=== PATIENT | female | born 1985 | race African-American/Black ===

== ENCOUNTER 2020-05-04 21:39 | Emergency (ER) | payer OTHER, SELFPAY ==
[2020-05-04 21:54] VITALS: BP 117/76; PULSE 68; RESP 18; TEMP 37.2; O2SAT 100; BMI 32.4
--- NOTE | 2020-05-04 22:01 | ED.WOUNDLAC ---
HPI - Wound/Laceration General Chief Complaint: Wound/Laceration Stated Complaint: Finger Lac Time Seen by Provider: 05/04/20 21:50 History of Present Illness HPI narrative: patient is a 34-year-old female no significant past medical history presents to the after cutting her left long finger with a scissor curved patient complaining of an area in the dorsum proximal IP joint of the long finger that has a laceration. Patient denies any systemic complaint was completely accidental in nature. She is unsure as to her tetanus status. Related Data Allergies Allergy/AdvReac Type Severity Reaction Status Date / Time naproxen [From NAPROSYN] Allergy Mild STOMACH Verified 05/04/20 21:54 ACHE Review of Systems Review of Systems: Constitutional: No Weight loss, No Fever, No Chills, No Night Sweats, No Fatigue, No Malaise ENT/Mouth: No Hearing loss, No Ear Pain, No Nasal Congestion, No Sinus Pain, No Hoarseness, No sore throat, No Rhinorrhea, No Swallowing Difficulty Eyes: No Eye Pain, No Swelling, No Redness, No Foreign Body, No Discharge, No Vision Changes Cardiovascular: No Chest Pain, No SOB, No Dyspnea on Exertion, No Orthopnea, No Edema, No Palpitations Respiratory: No Cough, No Sputum, No Wheezing, No Smoke Exposure, No Dyspnea Gastrointestinal: No Nausea, No Vomiting, No Diarrhea, No Constipation, No abdominal Pain, No Hematochezia, No Melena Genitourinary: no irregular bleeding, No Dysuria, No Urinary Frequency, No Hematuria, No Urinary Incontinence, No Urgency, No Flank Pain, No Urinary Flow Changes, No Hesitancy Musculoskeletal: No joint pain, No Myalgias, No Joint Swelling Skin: No Skin Lesions, No rash Neuro: No Weakness, No Numbness, No Paresthesias, No Loss of Consciousness, No Dizziness, No Headache Psych: No Anxiety/Panic, No Depression, No SI/HI/AH/VH, No Social Issues, Heme/Lymph: No Bruising, No Bleeding,No Lymphadenopathy Endocrine: No Polyuria, No Polydipsia, No Temperature Intolerance [facility] Past Medical History Attestation statement: The following information was validated with the patient. Social History Social History Advance Directives: No Physical Exam Vital Signs: Vital Signs: Last Vital Signs Temp 99.0 F 05/04/20 21:54 Pulse 68 05/04/20 21:54 Resp 18 05/04/20 21:54 BP 117/76 05/04/20 21:54 Pulse Ox 100 05/04/20 21:54 Body Mass Index 32.4 Appearance: Alert. Oriented X3. No acute distress. Eyes: Pupils equal, round and reactive to light. ENT: Pharynx normal. Neck: Normal inspection. Neck supple. No lymph nodes noted. No crepitus CVS: Normal heart rate and rhythm. Pulses normal. Normal S1 and S2 Respiratory: No respiratory distress. Breath sounds normal. No Wheezing. No rales Abdomen: Soft and nontender. No rigidity. No distention. good BS x4 Skin: positive laceration to the dorsum of left long finger at the proximal IP joint. It is about 2.5 cm in size is in a circular fashion. There is subcutaneous tissue that was exposed. Flexion extension at the proximal IP joint and distal IP joints are completely intact. Sensation intact capillary refill less than 2 seconds. Extremities: No lower extremity edema. Neurovascular intact to all extremities. No Lacerations. No Rash Neuro: Oriented X 3. No motor deficit. No sensory deficit. Moving all extermities. No slurred speech Procedures Laceration Laceration 1: Side (If applicable): left ( Long finger at the proximal IP joint) Size (cm): 2.5 Description: flap Depth: simple, single layer Local Anesthetic: lidocaine 1% Amount of anesthesia used (mL): 5 Pre-repair: wound explored and irrigated extensively Skin layer closed with: nylon Size (cm): 5-0 Number of sutures: 3 Technique: simple, interrupted Discharge Plan Discharge Clinical Impression: Laceration Patient Disposition: Home, Self-Care Instructions: Finger Laceration (ED) Referrals: Conroy,Jess Yuen MD [Emergency Provider] - 2 weeks ( suture removal in 10-14 days in the emergency department or with your primary physician.)
[2020-05-04] MEDS: Lidocaine HCl 1 % MPF 5 ML VIAL SUBCUT (22:06)
== END 2020-05-04 22:54 | disposition home or self-care (01) ==
PROVIDERS: Emergency Provider Emergency Medicine Emergency Medical Services; PCP Internal Medicine
DX: S61.213A Laceration without foreign body of left middle finger without damage to nail, initial encounter (principal); S60.413A Abrasion of left middle finger, initial encounter; M79.645 Pain in left finger(s); W26.8XXA Contact with other sharp object(s), not elsewhere classified, initial encounter; Y93.9 Activity, unspecified; Y92.009 Unspecified place in unspecified non-institutional (private) residence as the place of occurrence of the external cause; Y99.9 Unspecified external cause status; Z23 Encounter for immunization
CPT/HCPCS: 12001; 90471; 90715; 99283; 99284

== ENCOUNTER 2020-08-27 16:57 | Emergency (ER) | payer OTHER, SELFPAY ==
--- NOTE | 2020-08-27 20:01 | PC.NURSE ---
pt not present on first call to triage.
--- NOTE | 2020-08-27 20:17 | PC.NURSE ---
pt not present for 2nd call.
--- NOTE | 2020-08-27 20:28 | PC.NURSE ---
pt not present on 3rd call.
== END 2020-08-27 20:41 | disposition left against medical advice (07) ==
PROVIDERS: Emergency Provider Emergency Medicine; PCP Internal Medicine
DX: R11.10 Vomiting, unspecified (principal)

== ENCOUNTER 2021-07-25 08:47 | Emergency (ER) | payer OTHER, SELFPAY ==
--- NOTE | 2021-07-25 | ECG_ITS ---
Test Reason : chest pain Blood Pressure : / mmHG Vent. Rate : 048 BPM Atrial Rate : 048 BPM P-R Int : 130 ms QRS Dur : 088 ms QT Int : 446 ms P-R-T Axes : 031 037 018 degrees QTc Int : 398 ms Sinus bradycardia Otherwise normal ECG Referred By: Generic ED Physician Electronically Signed By:Asad Dodson
--- NOTE | ~2021-07-25 | XR_ITS ---
EXAMINATION: XR CHEST CLINICAL INFORMATION: Chest pain COMPARISON: None TECHNIQUE: Frontal view of the chest was obtained. FINDINGS: No significant abnormality is noted involving the heart, lungs, mediastinum, bony thorax or soft tissues. XR/XR chest 1V IMPRESSION: Unremarkable chest examination.
[2021-07-25 08:56] VITALS: BP 120/82; PULSE 62; RESP 19; TEMP 36.6; O2SAT 99; BMI 26.9
--- NOTE | 2021-07-25 09:31 | ED.CHESTPAIN ---
HPI - Chest Pain General Chief Complaint: Chest Pain Stated Complaint: low bp chest pain Time Seen by Provider: 07/25/21 09:31 Source: patient Mode of arrival: ambulatory Limitations: no limitations History of Present Illness HPI narrative: 35 y/o female with no medical history presents to the ER with low blood pressure and chest pain for the last 3 days. She reports checking her blood pressure at home and it was low, 90/60's. It was associated with lightheadedness and fatigue. She also reported palpitations and SOB. She reports having central chest pains on/off for the last one year. She saw her PCP recently who told her that her symptoms needed to be constant for 3 months before she could be referred to a green end department supervisor. She presents today because her BP was again low at home. She is not on anti-HTN meds and she checks her BP because she has been feeling tired lately and not well. She has had loose stools and diarrhea for 2 months. No abd pain or vomiting, no fevers, cough, sick contacts. MD complaint: chest pain Onset (ago): year(s) Timing of current episode: episodic Prior episodes: Yes Onset: during rest Pain location: substernal Pain radiation: none Severity: moderate Quality: aching Relieving factors: nothing Exacerbating factors: nothing Associated symptoms: dyspnea and palpitations Risk Factors Coronary artery disease risk factors: none Thoracic aortic dissection risk factors: none Related Data On Oral Contraceptives: No Allergies Allergy/AdvReac Type Severity Reaction Status Date / Time naproxen [From NAPROSYN] Allergy Mild STOMACH Verified 05/04/20 21:54 ACHE Review of Systems Review of Systems: Constitutional: No Fever, No Chills ENT/Mouth: No sore throat, No Rhinorrhea, No Swallowing Difficulty Cardiovascular: + Chest Pain, + SOB, No Orthopnea, No Edema, +Palpitations Respiratory: No Cough, No Sputum, No Wheezing, No dyspnea Gastrointestinal: No Nausea, No Vomiting, + Diarrhea, No abdominal Pain, No Hematochezia, No Melena Musculoskeletal: No joint pain, No Myalgias Skin: No Skin Lesions, No rash Neuro: No Weakness, No Numbness, + Dizziness, No Headache Psych: + Anxiety/Panic, No Depression Heme/Lymph: No Bruising, No Lymphadenopathy Endocrine: No Polyuria, No Polydipsia PMFSH Social History Social History Advance Directives: No Advance Directives Information Provided: No Physical Exam Vital Signs: Vital Signs: Last Vital Signs Temp 97.9 F 07/25/21 11:36 Pulse 47 L 07/25/21 11:36 Resp 12 07/25/21 11:36 BP 111/80 07/25/21 11:36 Pulse Ox 100 07/25/21 11:36 BMI result Body Mass Index 26.9 Appearance: Alert. Oriented X3. No acute distress. Eyes: Pupils equal, round and reactive to light. ENT: Pharynx normal. Neck: Normal inspection. Neck supple. CVS: Normal heart rate and rhythm. Pulses normal. Respiratory: No respiratory distress. Breath sounds normal. Abdomen: Soft and nontender. +BS x4 Skin: Skin warm and dry. Normal skin color. Normal skin turgor. No rashes. Extremities: No lower extremity edema. No calf tenderness or redness. Neuro: Oriented X 3. No motor deficit. No sensory deficit. Course Course Course Narrative: 35 y/p healthy female presents to the ER with on/off chest pains x1 year as well as SOB. She states since Friday she has felt chest pains in the middle of her chest. It comes and goes but has been constant since late last night. On arrival to the ER her VS are normal and her exam is unremarkable. PERC negative. Will check EKG, troponin and basic labs. Will keep on telemetry and monitor. Reevaluation(s) Reevaluation #1: Orthostatic VS are negative. labs are unremarkable. She wrote down all of the blood pressures taken while in the ER - currently 97/67 with MAP 74. She wants to know why my blood pressure is so low. Patient counseled that this is a normal blood pressure and MAP for someone her age. She would like to be referred to a green end department supervisor for further evaluation. At this time patient remains hemodynamically stable with negative cardiac workup. She is stable for discharge home with follow up with her PCP and referral to Cardiology if her PCP feels this is appropriate. MDM - Chest Pain Lab Data Result diagrams: 07/25/21 09:45 07/25/21 09:45 Labs: Lab Results 07/25/21 07/25/21 07/25/21 Range/Units 09:45 09:45 09:45 WBC 4.8 (4.8-10.8) X10*3/uL RBC 4.29 (4.20-5.50) X10*6/uL Hgb 12.7 (12.0-16.0) g/dl Hct 38.2 (37.0-47.0) % MCV 89.0 (80.0-98.0) fL MCH 29.6 (27.0-33.0) pg MCHC 33.2 (31.0-35.0) g/dl RDW 14.7 (11.0-16.0) % Plt Count 156 L (160-400) X10*3/uL MPV 12.2 (9.4-12.3) fL Immature Gran % (Auto) 0.6 H (0.0-0.4) % Neut % (Auto) 66.8 (45-73) % Lymph % (Auto) 22.3 (20-40) % [place] % (Auto) 8.2 (2-11) % Eos % (Auto) 1.5 (0-4) % Baso % (Auto) 0.6 (0-2) % Lymph # (Auto) 1.1 L (1.2-4.9) X10*3/uL [place] # (Auto) 0.4 (0.1-1.2) X10*3/uL Eos # (Auto) 0.1 (0.0-0.4) X10*3/uL Baso # (Auto) 0.0 (0.0-0.2) X10*3/uL Abs Immat Gran (auto) 0.03 (0.00-0.03) X10*3/uL Absolute Neuts (auto) 3.2 (2.0-8.3) x10*3/uL Absolute Nucleated RBC 0.000 (0.0-0.012) X10*3/uL Nucleated RBC % (auto) 0.0 (0.0-0.2) /100WBC Sodium 138 (135-145) mmol/L Potassium 4.0 (3.3-5.1) mmol/L Chloride 107 (96-108) mmol/L Carbon Dioxide 27 (22-29) mmol/L Anion Gap 8 L (12-20) BUN 18 H (9-16) mg/dL Creatinine 0.83 (0.5-1.4) mg/dL Estim Creat Clear Calc 90.6 Estimated GFR > 60 Random Glucose 67 (60-115) mg/dL Calcium 9.3 (8.4-10.2) mg/dL Magnesium 2.0 (1.6-2.6) mg/dL Total Bilirubin 0.7 (0.0-1.0) mg/dL Direct Bilirubin 0.2 (0.0-0.5) mg/dL AST 15 (5-31) U/L ALT 11 (0-31) U/L Alkaline Phosphatase 64 (39-117) U/L Troponin I High Sens < 3.5 (<3.5-17.0) ng/L Total Protein 6.3 L (6.5-8.0) g/dL Albumin 4.1 (3.5-5.0) g/dL TSH 0.95 (0.32-4.0) uIU/mL Urine Color Urine Appearance Urine pH (5.0-8.0) Ur Specific [place] (1.005-1.025) Urine Protein (NEG-TRACE) MG/DL Urine Glucose (UA) (NEG) MG/DL Urine Ketones (NEG) MG/DL Urine Blood (NEG) Urine Nitrite (NEG) Ur Leukocyte Esterase (NEG) Urine Test (NEGATIVE) COVID-19 ([facility]) (Negative) COVID-19 Clin Com 07/25/21 07/25/21 07/25/21 Range/Units 09:45 11:26 11:26 WBC (4.8-10.8) X10*3/uL RBC (4.20-5.50) X10*6/uL Hgb (12.0-16.0) g/dl Hct (37.0-47.0) % MCV (80.0-98.0) fL MCH (27.0-33.0) pg MCHC (31.0-35.0) g/dl RDW (11.0-16.0) % Plt Count (160-400) X10*3/uL MPV (9.4-12.3) fL Immature Gran % (Auto) (0.0-0.4) % Neut % (Auto) (45-73) % Lymph % (Auto) (20-40) % [place] % (Auto) (2-11) % Eos % (Auto) (0-4) % Baso % (Auto) (0-2) % Lymph # (Auto) (1.2-4.9) X10*3/uL [place] # (Auto) (0.1-1.2) X10*3/uL Eos # (Auto) (0.0-0.4) X10*3/uL Baso # (Auto) (0.0-0.2) X10*3/uL Abs Immat Gran (auto) (0.00-0.03) X10*3/uL Absolute Neuts (auto) (2.0-8.3) x10*3/uL Absolute Nucleated RBC (0.0-0.012) X10*3/uL Nucleated RBC % (auto) (0.0-0.2) /100WBC Sodium (135-145) mmol/L Potassium (3.3-5.1) mmol/L Chloride (96-108) mmol/L Carbon Dioxide (22-29) mmol/L Anion Gap (12-20) BUN (9-16) mg/dL Creatinine (0.5-1.4) mg/dL Estim Creat Clear Calc Estimated GFR Random Glucose (60-115) mg/dL Calcium (8.4-10.2) mg/dL Magnesium (1.6-2.6) mg/dL Total Bilirubin (0.0-1.0) mg/dL Direct Bilirubin (0.0-0.5) mg/dL AST (5-31) U/L ALT (0-31) U/L Alkaline Phosphatase (39-117) U/L Troponin I High Sens (<3.5-17.0) ng/L Total Protein (6.5-8.0) g/dL Albumin (3.5-5.0) g/dL TSH (0.32-4.0) uIU/mL Urine Color YELLOW Urine Appearance CLEAR Urine pH 6.0 (5.0-8.0) Ur Specific [place] 1.020 (1.005-1.025) Urine Protein NEG (NEG-TRACE) MG/DL Urine Glucose (UA) NEG (NEG) MG/DL Urine Ketones NEG (NEG) MG/DL Urine Blood NEG (NEG) Urine Nitrite NEG (NEG) Ur Leukocyte Esterase NEG (NEG) Urine Test NEGATIVE (NEGATIVE) COVID-19 ([facility]) Negative (Negative) COVID-19 Clin Com See Note Discharge Plan Discharge Clinical Impression: Atypical chest pain Patient Disposition: Home, Self-Care Instructions: Noncardiac Chest Pain (ED) Additional Instructions: Your lab workup and EKG were normal. Your blood pressure remained stable in the ER. Blood pressure in the 90's is normal for someone your age. Recommend following up with your doctor. If you develop new or worsening symptoms call 911 or come back to the ER for further evaluation. Referrals: Nadege Pollard MD [Primary Care Provider] - 2 days (chest pain x1 year) Asad Dodson MD [Physician] - 1 week (chest pain, hypotension ) Interventions: ED Discharge Assessment Last Done: 07/25/21 12:41 Discharge Date/Time: 07/25/21 12:41
[2021-07-25] MEDS: 0.9 % Sodium Chloride 1,000 ML 999 ML IVCONT (09:46)
[2021-07-25 09:52] LABS: MANUAL DIFF FLAG NO
[2021-07-25 09:56] LABS: Basophils Percent Auto 0.6 % (0-2); Eosinophils Absolute Auto 0.1 X10*3/uL (0.0-0.4); Eosinophils Percent Auto 1.5 % (0-4); Hematocrit 38.2 % (37.0-47.0); Hemoglobin 12.7 g/dl (12.0-16.0); Imm Gran Abs Auto 0.03 X10*3/uL (0.00-0.03); Imm Gran Pct Auto 0.6 % (0.0-0.4); Lymphocytes Absolute Auto 1.1 X10*3/uL (1.2-4.9); Lymphocytes Percent Auto 22.3 % (20-40); Mean Corpuscular HGB Conc 33.2 g/dl (31.0-35.0); Mean Corpuscular Hemoglobin 29.6 pg (27.0-33.0); Mean Platelet Volume 12.2 fL (9.4-12.3); Monocytes Absolute Auto 0.4 X10*3/uL (0.1-1.2); Monocytes Percent Auto 8.2 % (2-11); Neutrophils Absolute Auto 3.2 x10*3/uL (2.0-8.3); Neutrophils Percent Auto 66.8 % (45-73); Platelet Count 156 X10*3/uL (160-400); Red Blood Count 4.29 X10*6/uL (4.20-5.50); Red Cell Distribution Width 14.7 % (11.0-16.0); White Blood Count 4.8 X10*3/uL (4.8-10.8)
[2021-07-25 10:12] LABS: COVID-19 Test Negative (Negative)
[2021-07-25 10:19] LABS: Alanine Aminotransferase 11 U/L (0-31); Albumin Level 4.1 g/dL (3.5-5.0); Alkaline Phosphatase 64 U/L (39-117); Anion Gap 8 (12-20); Aspartate Amino Transferase 15 U/L (5-31); Bilirubin Direct 0.2 mg/dL (0.0-0.5); Bilirubin Total 0.7 mg/dL (0.0-1.0); Blood Urea Nitrogen 18 mg/dL (9-16); Calcium 9.3 mg/dL (8.4-10.2); Carbon Dioxide 27 mmol/L (22-29); Chloride 107 mmol/L (96-108); Creatinine Clr Calc Pharmacy 90.6; Estimated Glomerular Filt Rate > 60; Glucose Random 67 mg/dL (60-115); Sodium 138 mmol/L (135-145); Total Protein 6.3 g/dL (6.5-8.0)
[2021-07-25 10:21] LABS: Troponin-I High Sensitivity < 3.5 ng/L (<3.5-17.0)
[2021-07-25 10:30] VITALS: BP 100/59; PULSE 50; RESP 20; TEMP 36.7; O2SAT 100
[2021-07-25 10:32] VITALS: BP 112/64; BP 96/66; PULSE 55; PULSE 66
[2021-07-25 10:36] LABS: TSH reflex Free T4 0.95 uIU/mL (0.32-4.0)
[2021-07-25 11:36] VITALS: BP 111/80; PULSE 47; RESP 12; TEMP 36.6; O2SAT 100
[2021-07-25 11:43] LABS: Appearance Urine CLEAR; Color Urine YELLOW; Glucose Urine UA NEG (NEG); Leukocyte Esterase Urine NEG (NEG); Nitrite Urine NEG (NEG); Urine Blood NEG (NEG); Urine Ketones NEG (NEG); Urine Protein NEG (NEG-TRACE)
[2021-07-25 11:44] LABS: UPreg QC Valid YES; Urine Pregnancy NEGATIVE (NEGATIVE)
[2021-07-25 16:42] LABS: Amphetamine Screen Urine Not Detected (Not Detect); Barbiturates, Urine Not Detected (Not Detect); Benzodiazepines Screen Urine Not Detected (Not Detect); Cannabinoid Screen Urine Not Detected (Not Detect); Cocaine Screen Urine Not Detected (Not Detect); Fentanyl, urine Not Detected (Not Detect); Opiate Screen Urine Not Detected (Not Detect); Phencyclidine Screen Urine Not Detected (Not Detect)
== END 2021-07-25 12:41 | disposition home or self-care (01) ==
PROVIDERS: Physician Assistant; Emergency Provider Emergency Medicine; PCP Internal Medicine
DX: R07.89 Other chest pain (principal); R06.02 Shortness of breath; Z20.822 Contact with and (suspected) exposure to COVID-19
CPT/HCPCS: 71045; 80048; 80076; 80307; 81003; 81025; 83735; 84443; 84484; 85025; 87635; 93005; 96360; 99284

== ENCOUNTER 2021-11-21 09:25 | Emergency (ER) | payer OTHER, SELFPAY ==
--- NOTE | ~2021-11-21 | CT_ITS ---
EXAMINATION: CT ABDOMEN AND PELVIS WITHOUT CONTRAST CLINICAL INFORMATION: Flank pain. UTI. COMPARISON: None TECHNIQUE: Multidetector volumetric imaging was performed from the superior aspect of the liver through the pubic symphysis. Sagittal and coronal reformatted images were obtained on the technologist's workstation. This CT examination was performed using dose optimization techniques as appropriate, variously including the following: *Automated exposure control *Adjustment of mA and/or kV according to patient size (this includes techniques or standardized protocols for targeted exams where dose is matched to indication/reason for exam; i.e. extremities or head) *Use of iterative reconstruction technique DLP: 710 mGy-cm FINDINGS: Visualized lung bases are well aerated. The liver demonstrates normal size, contour and attenuation. The gallbladder is normal in appearance. The pancreas, spleen and adrenal glands are unremarkable. Symmetrically sized kidneys. No renal calculi or hydronephrosis of either kidney. Normal caliber loops of small and large bowel. Normal appendix. Normal caliber abdominal aorta. No gross retroperitoneal lymphadenopathy. The bladder is decompressed and therefore not accurately evaluated, however, no gross bladder abnormality is identified. Unremarkable CT appearance of an anteverted uterus. Suspected nabothian cysts of the cervix. Suspected 3.5 cm right adnexal cyst. Trace amount of free pelvic fluid is nonspecific but likely physiologic in a female of this age. No inguinal lymphadenopathy. No acute osseous abnormality. CT/CT abdomen pelvis wo IV con IMPRESSION: No CT evidence for acute abnormality within the abdomen or pelvis. Specifically no renal calculi or hydronephrosis of either kidney. Fleischner guidelines were followed.
[2021-11-21 09:28] VITALS: BP 130/80; PULSE 60; RESP 18; TEMP 36.6; O2SAT 99; BMI 29.7
[2021-11-21 10:22] VITALS: BP 106/58; PULSE 51; RESP 16; TEMP 36.9; O2SAT 100
--- NOTE | 2021-11-21 10:43 | ED.ABDPAIN ---
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 Patient also having chills, nausea/vomiting. No diarrhea, constipation or vaginal discharge. Related Data Previous Rx's Medication Instructions Recorded cefuroxime axetil 250 mg tablet 250 mg PO BID #14 tabs 11/21/21 phenazopyridine 200 mg tablet 200 mg PO TID PRN pain 6 doses #14 11/21/21 (Pyridium) tabs Allergies Allergy/AdvReac Type Severity Reaction Status Date / Time naproxen [From NAPROSYN] Allergy Mild STOMACH Verified 05/04/20 21:54 ACHE Review of Systems Review of Systems Yes all other systems are reviewed and are negative Constitutional: Reports no additional constitutional complaints, Denies body ache(s), Reports chills, Denies fever(s), Denies headache(s) and Denies weakness Eyes: Reports no additional eye complaints and Denies change in vision Reports system reviewed and no additional complaints, except as documented, Denies dizziness, Denies headache(s), Denies nasal congestion, Denies nasal discharge and Denies neck pain Cardiovascular: Reports no additional cardiovascular complaints, Denies chest pain, Denies leg edema and Denies dyspnea Respiratory: Reports no additional respiratory complaints, Denies cough and Denies dyspnea Gastrointestinal: Reports no additional gastrointestinal complaints, Reports abdominal pain, Denies diarrhea, Reports nausea and Reports vomiting Genitourinary: Reports no additional female genitourinary complaints, Denies urinary incontinence and Denies vaginal discharge Comments: Dysuria and frequency Musculoskeletal: Reports no additional musculoskeletal complaints, Reports back pain, Denies arthralgias, Denies joint swelling, Denies neck pain, Denies numbness and Denies tingling Skin/Breast: Reports system reviewed and no additional complaints, except as docu and Denies rash Reports system reviewed and no additional complaints, except as documented, Denies dizziness, Denies headache(s), Denies numbness, Denies tingling and Denies weakness [facility] Past Medical History Attestation statement: The following information was validated with the patient. Source: old records reviewed and nursing notes reviewed Social History Social History Advance Directives: No Advance Directives Information Provided: No Patient : Yes Physical Exam ED Vital Signs: Vital Signs - 24 hr 11/21/21 09:28 11/21/21 10:22 11/21/21 12:27 Temperature 97.8 F 98.5 F Pulse Rate 60 51 52 Respiratory Rate 18 16 14 Blood Pressure 130/80 106/58 L 101/62 Pulse Oximetry 99 100 100 Oxygen Delivery Method Room Air Nasal Cannula Room Air Room Air BMI result Body Mass Index 29.7 Const General: cooperative, healthy appearing, comfortable and no acute distress Orientation/consciousness: patient oriented x3 Limitations: no limitations HENMT Head: Yes normal to inspection Ears: hearing grossly normal bilaterally General nose exam: Normal external nose present Face and sinus: Yes normal facial exam Mouth: Normal oral and palatal mucosa present Teeth and gingiva: dentition normal Throat: Yes posterior oropharynx normal, Yes tonsils normal and Yes uvula midline Eyes General: appearance normal, both eyes and all related structures Pupils: Equal, round and reactive pupils present Neck Neck: Yes normal visual inspection, Yes full ROM and Yes no lymphadenopathy Chest Chest palpation & inspection: normal inspection of the chest Resp Effort & Inspection: normal respiratory effort Auscultation: clear to auscultation bilaterally Cardio Rate: regular rate Rhythm: regular rhythm Peripheral pulses: Peripheral pulses 2+ throughout GI Inspection: Yes normal to inspection Palpation (GI): Soft to palpation and Tenderness to palpation present (GI) (Lower abdominal tenderness [id number]) General: Yes CVA tenderness (Right-sided) Back/Spine/Pelvis Back: CVA tenderness (Right-sided) Skin General skin exam: no rashes or lesions noted Neuro General: patient oriented x3 and moves all extremities Cranial nerves: Yes Equal, round and reactive pupils present Extrem General: Yes normal to inspection, Yes no pedal edema and Yes no calf tenderness Course Course Course Narrative: 36-year-old female here with reports of 4 days of right flank pain which radiates the right lower abdomen with nausea, chills, urinary frequency and dysuria. Will need labs, UA, urine , CT Reevaluation(s) Reevaluation #1: UA shows 3+ blood, +nitrites and leuks. At this time infection suspected. Antibiotics ordered. Time: 11:00 Reevaluation #2: CT shows no acute finding. Labs are unremarkable. Patient received a dose of antibiotics for her UTI. She is tolerating fluids. Will discharge her home with oral antibiotics and Pyridium as needed. Reviewed worrisome signs and symptoms of when to return to the emergency department. Comfortable discharge home. Time: 14:30 MDM - Abdominal Pain MDM Narrative Medical decision making narrative: Pyelonephritis, renal colic, UTI, appendicitis Medical Records Attestation: I reviewed the patient's medical records. Lab Data Attestation: I reviewed the patient's lab results. Result diagrams: 11/21/21 10:57 11/21/21 10:57 Labs: Lab Results 11/21/21 11/21/21 11/21/21 Range/Units 10:57 10:57 10:57 WBC 6.8 (4.8-10.8) X10*3/uL RBC 4.38 (4.20-5.50) X10*6/uL Hgb 12.9 (12.0-16.0) g/dl Hct 39.4 (37.0-47.0) % MCV 90.0 (80.0-98.0) fL MCH 29.5 (27.0-33.0) pg MCHC 32.7 (31.0-35.0) g/dl RDW 14.4 (11.0-16.0) % Plt Count 218 D (160-400) X10*3/uL MPV 10.7 (9.4-12.3) fL Immature Gran % (Auto) 0.7 H (0.0-0.4) % Neut % (Auto) 74.6 H (45-73) % Lymph % (Auto) 16.4 L (20-40) % [place] % (Auto) 6.5 (2-11) % Eos % (Auto) 1.5 (0-4) % Baso % (Auto) 0.3 (0-2) % Lymph # (Auto) 1.1 L (1.2-4.9) X10*3/uL [place] # (Auto) 0.4 (0.1-1.2) X10*3/uL Eos # (Auto) 0.1 (0.0-0.4) X10*3/uL Baso # (Auto) 0.0 (0.0-0.2) X10*3/uL Abs Immat Gran (auto) 0.05 H (0.00-0.03) X10*3/uL Absolute Neuts (auto) 5.1 (2.0-8.3) x10*3/uL Absolute Nucleated RBC 0.000 (0.0-0.012) X10*3/uL Nucleated RBC % (auto) 0.0 (0.0-0.2) /100WBC Sodium 138 (135-145) mmol/L Potassium 4.5 (3.3-5.1) mmol/L Chloride 107 (96-108) mmol/L Carbon Dioxide 26 (22-29) mmol/L Anion Gap 10 L (12-20) BUN 20 H (9-16) mg/dL Creatinine 0.74 (0.5-1.4) mg/dL Estim Creat Clear Calc 105.5 Estimated GFR > 60 Random Glucose 89 (60-115) mg/dL Lactic Acid 0.3 L (0.5-2.0) mmol/L Calcium 8.9 (8.4-10.2) mg/dL Total Bilirubin 0.4 (0.0-1.0) mg/dL Direct Bilirubin 0.2 (0.0-0.5) mg/dL AST 14 (5-31) U/L ALT 11 (0-31) U/L Alkaline Phosphatase 68 (39-117) U/L Total Protein 6.7 (6.5-8.0) g/dL Albumin 4.2 (3.5-5.0) g/dL Urine Color Urine Appearance Urine pH (5.0-8.0) Ur Specific [place] (1.005-1.025) Urine Protein (NEG-TRACE) MG/DL Urine Glucose (UA) (NEG) MG/DL Urine Ketones (NEG) MG/DL Urine Blood (NEG) Urine Nitrite (NEG) Ur Leukocyte Esterase (NEG) Urine RBC (0) /HPF Urine WBC (0-4) /HPF Ur Squamous Epith Cells /LPF Urine Bacteria /LPF Urine Test (NEGATIVE) 11/21/21 11/21/21 Range/Units 10:57 10:57 WBC (4.8-10.8) X10*3/uL RBC (4.20-5.50) X10*6/uL Hgb (12.0-16.0) g/dl Hct (37.0-47.0) % MCV (80.0-98.0) fL MCH (27.0-33.0) pg MCHC (31.0-35.0) g/dl RDW (11.0-16.0) % Plt Count (160-400) X10*3/uL MPV (9.4-12.3) fL Immature Gran % (Auto) (0.0-0.4) % Neut % (Auto) (45-73) % Lymph % (Auto) (20-40) % [place] % (Auto) (2-11) % Eos % (Auto) (0-4) % Baso % (Auto) (0-2) % Lymph # (Auto) (1.2-4.9) X10*3/uL [place] # (Auto) (0.1-1.2) X10*3/uL Eos # (Auto) (0.0-0.4) X10*3/uL Baso # (Auto) (0.0-0.2) X10*3/uL Abs Immat Gran (auto) (0.00-0.03) X10*3/uL Absolute Neuts (auto) (2.0-8.3) x10*3/uL Absolute Nucleated RBC (0.0-0.012) X10*3/uL Nucleated RBC % (auto) (0.0-0.2) /100WBC Sodium (135-145) mmol/L Potassium (3.3-5.1) mmol/L Chloride (96-108) mmol/L Carbon Dioxide (22-29) mmol/L Anion Gap (12-20) BUN (9-16) mg/dL Creatinine (0.5-1.4) mg/dL Estim Creat Clear Calc Estimated GFR Random Glucose (60-115) mg/dL Lactic Acid (0.5-2.0) mmol/L Calcium (8.4-10.2) mg/dL Total Bilirubin (0.0-1.0) mg/dL Direct Bilirubin (0.0-0.5) mg/dL AST (5-31) U/L ALT (0-31) U/L Alkaline Phosphatase (39-117) U/L Total Protein (6.5-8.0) g/dL Albumin (3.5-5.0) g/dL Urine Color YELLOW Urine Appearance CLEAR Urine pH 5.5 (5.0-8.0) Ur Specific [place] 1.025 (1.005-1.025) Urine Protein NEG (NEG-TRACE) MG/DL Urine Glucose (UA) NEG (NEG) MG/DL Urine Ketones NEG (NEG) MG/DL Urine Blood 3+ H (NEG) Urine Nitrite POS H (NEG) Ur Leukocyte Esterase TRACE H (NEG) Urine RBC 5-9 H (0) /HPF Urine WBC 15-29 H (0-4) /HPF Ur Squamous Epith Cells 1+ /LPF Urine Bacteria 2+ /LPF Urine Test NEGATIVE (NEGATIVE) Discharge Plan Discharge Clinical Impression: UTI (urinary tract infection) Patient Disposition: Home, Self-Care Instructions: Urinary Tract Infection in Women (ED) Additional Instructions: Increase fluids, rest Motrin or Tylenol for pain as needed if able Follow-up with primary care doctor in 7 days for any persistent symptoms Return to the emergency department for intractable vomiting, worsening pain, high fever which is not respond to Motrin or Tylenol Prescriptions: New phenazopyridine [Pyridium] 200 mg tablet 200 mg PO TID PRN (Reason: pain) Qty: 14 0RF cefuroxime axetil 250 mg tablet 250 mg PO BID Qty: 14 0RF Referrals: Nadege Pollard MD [Primary Care Provider] - 1 week (If no improvement) Interventions: ED Discharge Assessment Last Done: 11/21/21 14:37 Discharge Date/Time: 11/21/21 14:37 Print Language: [place]
[2021-11-21] MEDS: Ketorolac Tromethamine 30 MG/ML VIAL IVPUSH (10:56)
[2021-11-21] MEDS: 0.9 % Sodium Chloride 1,000 ML 999 ML IV (10:56)
[2021-11-21 11:04] LABS: MANUAL DIFF FLAG NO
[2021-11-21 11:06] LABS: Basophils Percent Auto 0.3 % (0-2); Eosinophils Absolute Auto 0.1 X10*3/uL (0.0-0.4); Eosinophils Percent Auto 1.5 % (0-4); Hematocrit 39.4 % (37.0-47.0); Hemoglobin 12.9 g/dl (12.0-16.0); Imm Gran Abs Auto 0.05 X10*3/uL (0.00-0.03); Imm Gran Pct Auto 0.7 % (0.0-0.4); Lymphocytes Absolute Auto 1.1 X10*3/uL (1.2-4.9); Lymphocytes Percent Auto 16.4 % (20-40); Mean Corpuscular HGB Conc 32.7 g/dl (31.0-35.0); Mean Corpuscular Hemoglobin 29.5 pg (27.0-33.0); Mean Platelet Volume 10.7 fL (9.4-12.3); Monocytes Absolute Auto 0.4 X10*3/uL (0.1-1.2); Monocytes Percent Auto 6.5 % (2-11); Neutrophils Absolute Auto 5.1 x10*3/uL (2.0-8.3); Neutrophils Percent Auto 74.6 % (45-73); Platelet Count 218 X10*3/uL (160-400); Red Blood Count 4.38 X10*6/uL (4.20-5.50); Red Cell Distribution Width 14.4 % (11.0-16.0); White Blood Count 6.8 X10*3/uL (4.8-10.8)
[2021-11-21 11:07] LABS: Appearance Urine CLEAR; Color Urine YELLOW; Glucose Urine UA NEG (NEG); Leukocyte Esterase Urine TRACE (NEG); Nitrite Urine POS (NEG); PH 5.5 (5.0-8.0); Specific Gravity - Urine 1.025 (1.005-1.025); UACC Culture Trigger YES; Urine Blood 3+ (NEG); Urine Ketones NEG (NEG); Urine Protein NEG (NEG-TRACE)
[2021-11-21 11:10] LABS: UPreg QC Valid YES; Urine Pregnancy NEGATIVE (NEGATIVE)
[2021-11-21 11:15] LABS: Lactic Acid 0.3 mmol/L (0.5-2.0)
[2021-11-21 11:19] LABS: Alanine Aminotransferase 11 U/L (0-31); Albumin Level 4.2 g/dL (3.5-5.0); Alkaline Phosphatase 68 U/L (39-117); Anion Gap 10 (12-20); Aspartate Amino Transferase 14 U/L (5-31); Bilirubin Direct 0.2 mg/dL (0.0-0.5); Bilirubin Total 0.4 mg/dL (0.0-1.0); Blood Urea Nitrogen 20 mg/dL (9-16); Calcium 8.9 mg/dL (8.4-10.2); Carbon Dioxide 26 mmol/L (22-29); Chloride 107 mmol/L (96-108); Creatinine Clr Calc Pharmacy 105.5; Estimated Glomerular Filt Rate > 60; Glucose Random 89 mg/dL (60-115); Potassium 4.5 mmol/L (3.3-5.1); Sodium 138 mmol/L (135-145); Total Protein 6.7 g/dL (6.5-8.0)
[2021-11-21] MEDS: cefTRIAXone sodium 1 GM in 0.9 % Sodium Chloride 50 ML IV (11:32)
[2021-11-21 11:35] LABS: Bacteria Urine 2+ /LPF; Squamous Epithelial Cell Urine 1+ /LPF
[2021-11-21 12:27] VITALS: BP 101/62; PULSE 52; RESP 14; O2SAT 100
== END 2021-11-21 14:37 | disposition home or self-care (01) ==
PROVIDERS: Nurse Practitioner Family; Emergency Provider Emergency Medicine; PCP Internal Medicine
DX: N39.0 Urinary tract infection, site not specified (principal); B96.1 Klebsiella pneumoniae [K. pneumoniae] as the cause of diseases classified elsewhere; R10.30 Lower abdominal pain, unspecified
CPT/HCPCS: 36415; 74176; 80048; 80076; 81001; 81025; 83605; 85025; 87040; 87086; 87088; 87186; 96361; 96374; 96375; 99284; 99285; J0696; J1885

== ENCOUNTER 2022-05-17 23:53 | Emergency (ER) | payer OTHER, MEDICAID, SELFPAY ==
--- NOTE | ~2022-05-17 | XR_ITS ---
EXAMINATION: XR CHEST CLINICAL INFORMATION: Chest pain, rule out pneumonia COMPARISON: 07/25/2021 TECHNIQUE: 2 views of the chest were obtained. FINDINGS: Lung volumes are symmetric. No focal consolidation is seen. No evidence of pneumothorax, pleural effusion, or pulmonary edema. The cardiomediastinal contour is unremarkable. No acute osseous findings are seen. XR/XR chest 2V IMPRESSION: No acute cardiopulmonary findings.
[2022-05-18 00:10] VITALS: BP 118/71; BP 133/70; PULSE 80; RESP 21; TEMP 36.6; O2SAT 100; BMI 34.5
--- NOTE | 2022-05-18 00:36 | ED.CHESTPAIN ---
HPI - Chest Pain General Chief Complaint: Chest Pain Stated Complaint: CHEST SINCE 1600 Time Seen by Provider: 05/18/22 00:04 Source: patient Mode of arrival: EMS Limitations: language barrier (Patient's 1st language is Slovak, she does understand Khmer, die try out worker was used) History of Present Illness HPI narrative: 36-year-old female who presents emergency department for evaluation chest pain. Patient states that she worked all day and was feeling fine. When she got home from work at around 16:00 hours she developed chest pain. The pain came on at rest. She points to her sternum and right chest when asked to localize the pain. She states the pain is an intermittent pressure-like pain which is intermittent and is 8/10 at its worst. She states that she also has numbness and tingling in both of her arms and legs that is intermittent as well. She did not take any medications for the pain at home. She states that over the last 2 days she has had a headache and a cough mainly at night. She also states she has had palpitations at night and she has had tingling this in her arms and legs at night as well. She denied fever, chills, rhinorrhea, sore throat, shortness of breath, nausea or vomiting. She does feel dizzy. She denied diaphoresis, frequency, urgency, dysuria, dark black stools or bloody stools. She has not noted any swelling in her lower extremities and she is not been any recent trips. She denies taking control pills. MD complaint: chest pain Onset (ago): hour(s) (Onset at 16:00 hours, intermittent time 6 hours) Timing of current episode: episodic Onset: during rest Pain location: substernal and right chest Pain radiation: none Severity: severe Pain scale (0-10): 8 Quality: other (Pressure) Relieving factors: nothing Exacerbating factors: nothing Associated symptoms: palpitations and cough Treatment prior to arrival: none Risk Factors Coronary artery disease risk factors: none Thoracic aortic dissection risk factors: none Related Data On Oral Contraceptives: No Previous Rx's Medication Instructions Recorded cefuroxime axetil 250 mg tablet 250 mg PO BID #14 tabs 11/21/21 phenazopyridine 200 mg tablet 200 mg PO TID PRN pain 6 doses #14 11/21/21 (Pyridium) tabs Allergies Allergy/AdvReac Type Severity Reaction Status Date / Time No Known Allergies Allergy Verified 05/18/22 00:10 Review of Systems Review of Systems: Yes all other systems are reviewed and are negative [facility] Past Medical History [facility] Narrative: Past medical history: None. Past surgical history: , right fibroma, bilateral tubal ligation. Social history: She denies tobacco, alcohol and drug use. Social History Social History Advance Directives: No Advance Directives Information Provided: Yes Physical Exam Vital Signs: Vital Signs: Last Vital Signs Temp 97.9 F 05/18/22 00:10 Pulse 80 05/18/22 00:10 Resp 21 H 05/18/22 00:10 BP 118/71 05/18/22 00:10 O2 Del Method 05/18/22 00:10 BMI result Body Mass Index 34.5 Const: General: cooperative and no acute distress Orientation/consciousness: oriented to person and oriented to place Limitations: no limitations HEENT: Head: Yes normal to inspection, Yes normocephalic and Yes atraumatic Ears: external ears normal General nose exam: Normal external nose present Face and sinus: Yes normal facial exam Mouth: Normal oral and palatal mucosa present Throat: Yes posterior oropharynx normal Eyes: General: appearance normal, both eyes and all related structures Pupils: Equal, round and reactive pupils present Neck: Neck: Yes normal visual inspection, Yes no lymphadenopathy, Yes trachea midline and Yes supple Chest: Chest palpation & inspection: normal inspection of the chest and normal palpation of entire chest wall Resp: Effort & Inspection: normal respiratory effort and able to speak in complete sentences Auscultation: clear to auscultation bilaterally Cardio: Rate: regular rate Rhythm: regular rhythm Heart sounds: S1 normal heart sound present, S2 normal heart sound present and no murmurs GI: Inspection: Yes normal to inspection Palpation (GI): Soft to palpation, nontender and no guarding Auscultation: normal bowel sounds : General: Yes no CVA tenderness Back/Spine/Pelvis: Back: no CVA tenderness Skin: General skin exam: no rashes or lesions noted Neuro: General: oriented to person and oriented to place Cranial nerves: Yes CN's II-XII intact bilaterally and Yes Equal, round and reactive pupils present Cognition (Neuro): normal cognition Motor exam (neuro): 5/5 motor strength present throughout Extrem: General: Yes normal to inspection Psych: Appearance: grossly normal Speech and movement: Normal speech and movement present Affect: normal affect Attitude: cooperative Thought process: Normal thought process present Thought content: Normal thought content present Course Course Course Narrative: 36-year-old female who presents emergency department for evaluation of chest pain since 16:00 hours, the pain came on suddenly at rest, pain is located in her sternum and right chest area, she has had associated numbness and tingling of both arms and legs, pain was 8/10 at its worst. For the past 2 nights she has had palpitations at night with tingling this and her arms and legs and a nonproductive cough. This is the 1st episode of this type of chest pain. Vital signs revealed an elevated respiratory of 21 otherwise unremarkable. Patient's physical examination was unremarkable. Did order laboratory evaluation to include a D-dimer, chest x-ray, EKG. Patient was treated with Toradol 15 mg IV and Zofran 4 mg IV. I also ordered normal saline x1 L. 0244: Laboratory evaluation: Low H&H 11.2 and 33.2 with a normal MCV. High sensitive troponin I below detectable limits. D-dimer normal. Radiology evaluation: Chest x-ray: no acute disease Patient is feeling better after the above treatment. Evaluation was unremarkable. At this time I believe that the patient's pain is most likely caused by inflammation of her muscles and joints of your chest (costochondritis). Patient was discharged home and advised to take Tylenol ibuprofen for pain. She was given printed and verbal instructions. Medications Administered Discontinued Medications Generic Name Dose Route Start Last Admin Trade Name Mora PRN Reason Stop Dose Admin Sodium Chloride 1,000 mls @ 999 mls/hr 05/18/22 00:36 05/18/22 02:26 Ns IV 05/18/22 01:36 Infused .Q1H1M STA Infusion Ketorolac Tromethamine 15 mg 05/18/22 00:36 05/18/22 00:56 Ketorolac Tromethamine 15 Mg/Ml Vial IVPUSH 05/18/22 00:37 15 mg ONCE STA Administration Ondansetron HCl 4 mg 05/18/22 00:36 05/18/22 00:56 Ondansetron Hcl 4 Mg/2 Ml Vial IVPUSH 05/18/22 00:37 4 mg ONCE ONE Administration MDM - Chest Pain Medical Records Data Attestation: I reviewed the patient's medical records. Lab Data Attestation: I reviewed the patient's lab results. Result diagrams: 05/18/22 01:30 05/18/22 01:30 Labs: Lab Results 05/18/22 05/18/22 05/18/22 Range/Units 01:30 01:30 01:30 WBC 6.9 (4.8-10.8) X10*3/uL RBC 3.78 L (4.20-5.50) X10*6/uL Hgb 11.2 L (12.0-16.0) g/dl Hct 33.2 L (37.0-47.0) % MCV 87.8 (80.0-98.0) fL MCH 29.6 (27.0-33.0) pg MCHC 33.7 (31.0-35.0) g/dl RDW 14.5 (11.0-16.0) % Plt Count 180 (160-400) X10*3/uL MPV 10.6 (9.4-12.3) fL Immature Gran % (Auto) 0.4 (0.0-0.4) % Neut % (Auto) 67.6 (45-73) % Lymph % (Auto) 21.6 (20-40) % [place] % (Auto) 7.0 (2-11) % Eos % (Auto) 2.8 (0-4) % Baso % (Auto) 0.6 (0-2) % Lymph # (Auto) 1.5 (1.2-4.9) X10*3/uL [place] # (Auto) 0.5 (0.1-1.2) X10*3/uL Eos # (Auto) 0.2 (0.0-0.4) X10*3/uL Baso # (Auto) 0.0 (0.0-0.2) X10*3/uL Abs Immat Gran (auto) 0.03 (0.00-0.03) X10*3/uL Absolute Neuts (auto) 4.6 (2.0-8.3) x10*3/uL Absolute Nucleated RBC 0.000 (0.0-0.012) X10*3/uL Nucleated RBC % (auto) 0.0 (0.0-0.2) /100WBC PT 11.8 (10.0-13.1) SEC INR 1.0 (0.9-1.1) APTT 29.9 (26.0-36.4) SEC D-Dimer High Sensitivty < 150 NG/ML Sodium 135 (135-145) mmol/L Potassium 3.5 D (3.3-5.1) mmol/L Chloride 106 (96-108) mmol/L Carbon Dioxide 24 (22-29) mmol/L Anion Gap 9 L (12-20) BUN 17 H (9-16) mg/dL Creatinine 0.75 (0.5-1.4) mg/dL Estim Creat Clear Calc 108.3 Estimated GFR > 60 Random Glucose 108 (60-115) mg/dL Calcium 8.3 L D (8.4-10.2) mg/dL Total Bilirubin 0.2 (0.0-1.0) mg/dL AST 13 (5-31) U/L ALT 10 (0-31) U/L Alkaline Phosphatase 72 (39-117) U/L Troponin I High Sens (<3.5-17.0) ng/L Total Protein 5.3 L (6.5-8.0) g/dL Albumin 3.5 (3.5-5.0) g/dL Lipase 28 (8-78) U/L Beta HCG, Quant < 2 mIU/mL 05/18/22 Range/Units 01:30 WBC (4.8-10.8) X10*3/uL RBC (4.20-5.50) X10*6/uL Hgb (12.0-16.0) g/dl Hct (37.0-47.0) % MCV (80.0-98.0) fL MCH (27.0-33.0) pg MCHC (31.0-35.0) g/dl RDW (11.0-16.0) % Plt Count (160-400) X10*3/uL MPV (9.4-12.3) fL Immature Gran % (Auto) (0.0-0.4) % Neut % (Auto) (45-73) % Lymph % (Auto) (20-40) % [place] % (Auto) (2-11) % Eos % (Auto) (0-4) % Baso % (Auto) (0-2) % Lymph # (Auto) (1.2-4.9) X10*3/uL [place] # (Auto) (0.1-1.2) X10*3/uL Eos # (Auto) (0.0-0.4) X10*3/uL Baso # (Auto) (0.0-0.2) X10*3/uL Abs Immat Gran (auto) (0.00-0.03) X10*3/uL Absolute Neuts (auto) (2.0-8.3) x10*3/uL Absolute Nucleated RBC (0.0-0.012) X10*3/uL Nucleated RBC % (auto) (0.0-0.2) /100WBC PT (10.0-13.1) SEC INR (0.9-1.1) APTT (26.0-36.4) SEC D-Dimer High Sensitivty NG/ML Sodium (135-145) mmol/L Potassium (3.3-5.1) mmol/L Chloride (96-108) mmol/L Carbon Dioxide (22-29) mmol/L Anion Gap (12-20) BUN (9-16) mg/dL Creatinine (0.5-1.4) mg/dL Estim Creat Clear Calc Estimated GFR Random Glucose (60-115) mg/dL Calcium (8.4-10.2) mg/dL Total Bilirubin (0.0-1.0) mg/dL AST (5-31) U/L ALT (0-31) U/L Alkaline Phosphatase (39-117) U/L Troponin I High Sens < 3.5 (<3.5-17.0) ng/L Total Protein (6.5-8.0) g/dL Albumin (3.5-5.0) g/dL Lipase (8-78) U/L Beta HCG, Quant mIU/mL ECG Data ECG #1: Attestation: I personally reviewed and interpreted this ECG as follows: Interpretation: 0012: Normal sinus rhythm rate of 60, normal MT interval, QRS duration QTC interval, inverted T-wave in lead 3, no ST segment elevation or depression, no PACs, no PVCs, no old EKG for comparison. Discharge Plan Discharge Clinical Impression: Acute costochondritis Patient Disposition: Home, Self-Care Instructions: Costochondritis (ED) Additional Instructions: Your blood work did reveal mild anemia which may be related to low iron. You should take an iron supplement for the next month. You should then follow-up with your doctor to get a repeat blood work to check your anemia. Your EKG was normal. Your chest x-ray was normal. The rest of your laboratory evaluation was unremarkable. Take ibuprofen 200 mg pills, 3 pills every 6 hours as needed for pain. Take Tylenol (acetaminophen) 500 mg pills, 2 pills every 4 to 6 hours as needed for pain. Follow-up with your doctor in 2 days. Please return to the emergency department if your symptoms get worse or if you develop any symptoms that are concerning to you. Prescriptions: No Action phenazopyridine [Pyridium] 200 mg tablet 200 mg PO TID PRN (Reason: pain) Qty: 14 0RF cefuroxime axetil 250 mg tablet 250 mg PO BID Qty: 14 0RF Print Language: Slovak
[2022-05-18] MEDS: ondansetron HCL 4 MG/2 ML VIAL IVPUSH (00:56)
[2022-05-18] MEDS: Ketorolac Tromethamine 15 MG/ML VIAL IVPUSH (00:56)
[2022-05-18] MEDS: 0.9 % Sodium Chloride 1,000 ML 999 ML IV (00:57)
--- NOTE | 2022-05-18 01:01 | PC.NURSE ---
this rn medicated pt according to MAR. pt's partner at bedside.
--- OUTSIDE RECORDS SUMMARY | 2022-05-18 01:14 | XMS_ITS | Continuity of Care Document ---
:1985 Author Organization [facility] Address [address] [place] [id number]- Care Team Providers Name Role Phone Nadege Pollard MD Primary Care Physician Encounter [facility] [place] Date(s): 08/20/21 - 11/17/21 [facility] [address] [place] [id number] Attending Physician: Sachin Zaman DO Admitting Physician: Sachin Zaman DO Referring Physician: Nadege Pollard MD Allergies, Adverse Reactions, Alerts Substance Reaction Severity Status naproxen Active Immunizations Given and Recorded Vaccine Date Status Refusal Reason tetanus/diphtheria/pertussis, acel(Tdap)1 12/21/14 Given influenza virus vaccine, inactivated2 05/27/14 Given influenza virus vaccine, inactivated3 03/19/10 Given Human Papillomavirus Vaccine 02/23/14 Given Tet/diphth/pertussis, acel (oldterm) 11/08/09 Given influ virus vac, H1N1, inactive(oldterm)4 04/06/09 Given 1Result Comment: [12/21/2014] VIS given in both Greenlandic and [place]ican.2Result Comment: [05/27/2014] Fluarix trivalent [id number] Note: VIS GIVEN Admin Note: tolerated well. denies allergies or reactions to previous influenza vaccines. Medications betamethasone-clotrimazole 0.05%-1% topical cream 1 application, Topically, 2 times a day, # 45 Gm, 1 Refills, Maintenance, 06/26/21 10:34:00 EST, Cream, [id number], Partial fill upon patient request if the prescription is for a schedule II opioid drug., 1 application Topically 2 times a day,... Start Date: 06/26/21 Status: Orderedcandesartan 4 mg oral tablet 1 tablet = 4 mg, By Mouth, Daily, # 30 tablet, 5 Refills, Maintenance, 07/06/21 15:43:00 EST, Tablet, [facility]/pharmacy #[id number], Partial fill upon patient request if the prescription is for a schedule II opioid drug., 161.5, cm, 06/26/21 9:58:00 EST, Height,... 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 pap was ob3had cone or LEEP in [facility] [place] 03/2014. Report in chart. Pap 10/2014 neg/neg.4BX=JOSSELYN II, high grade. Referred for tx.5colpo, ECC, bx Social History Social History Type Response Smoking Status Never smoker; Tobacco user i n household: No entered on: 01/16/18 Sex
--- OUTSIDE RECORDS SUMMARY | 2022-05-18 01:14 | XMS_ITS | Continuity of Care Document ---
:1985 Author Organization [facility] Address [address] [place] [address]- Care Team Providers Name Role Phone Nadege Pollard MD Primary Care Physician [place] [facility] [place] 08[place]/21 [facility] [address] [place] [id number] Allergies, Adverse Reactions, Alerts Substance Reaction Severity Status naproxen Active Immunizations Given and Recorded Vaccine Date Status Refusal Reason tetanus/diphtheria/pertussis, acel(Tdap)1 12/21/14 Given influenza virus vaccine, inactivated2 05/27/14 Given influenza virus vaccine, inactivated3 03/19/10 Given Human Papillomavirus Vaccine 02/23/14 Given Tet/diphth/pertussis, acel (oldterm) 11/08/09 Given influ virus vac, H1N1, inactive(oldterm)4 04/06/09 Given 1Result Comment: [12/21/2014] VIS given in both Syrian and Malagasy.2Result Comment: [05/27/2014] Fluarix trivalent [id number] Note: VIS GIVEN Admin Note: tolerated well. [...] 5 Refills, Maintenance, 07/06/21 15:43:00 EST, Tablet, [id number], Partial fill upon patient request if the prescription is for a schedule II opioid drug., 161.5, cm, 06/26/21 9:58:00 EST, Height,... 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 pap was ob3had cone or LEEP in [facility] [place] 03/2014. Report in chart. Pap 10/2014 neg/neg.4BX=JOSSELYN II, high grade. Referred for tx.5colpo, ECC, bx Social History Social History Type Response Smoking Status Never smoker; Tobacco user i n household: No entered on: 01/16/18 Sex
--- OUTSIDE RECORDS SUMMARY | 2022-05-18 01:14 | XMS_ITS | Continuity of Care Document ---
:1985 Author Organization [facility] Address [address] [place] [address]- Care Team Providers Name Role Phone Nadege Pollard MD Primary Care Physician Encounter [facility] [place] Date(s): 05/10/20 - 06/09/20 [facility] [address] [place] [id number]- Attending Physician: Yola Delacruz Admitting Physician: Yola Delacruz Referring Physician: AdmtrYola Allergies, Adverse Reactions, Alerts Substance Reaction Severity Status naproxen Active Immunizations Given and Recorded Vaccine Date Status Refusal Reason tetanus/diphtheria/pertussis, acel(Tdap)1 12/21/14 Given influenza virus vaccine, inactivated2 05/27/14 Given influenza virus vaccine, inactivated3 03/19/10 Given Human Papillomavirus Vaccine 02/23/14 Given Tet/diphth/pertussis, acel (oldterm) 11/08/09 Given influ virus vac, H1N1, inactive(oldterm)4 04/06/09 Given 1Result Comment: [12/21/2014] VIS given in both [place] and [place].2Result Comment: [05/27/2014] Fluarix trivalent [id number] Note: VIS GIVEN Admin Note: tolerated well. denies allergies or reactions to previous influenza vaccines. Medications Acetaminophen occasionally for headache, 0 Refills, Maintenance, 08/30/19 8:52:00 EDT Start Date: 08/30/19 Status: Orderedamitriptyline 25 mg oral tablet 25 mg, 1, tablet, By Mouth, Daily at bedtime, label in tamaz[place] do not take with topiramate., # 30 tablet, Refills 0, Tot. Refills 0, Maintenance, 01/10/20 13:17:00 EDT, Route to Pharmacy Electronically, [facility]/pharmacy #[id number], 161.5, cm, 12/26/19 22:46:0... Start Date: 01/10/20 Status: Orderedcetirizine 10 mg oral tablet 1 tablet = 10 mg, By Mouth, Daily, during allergy season, # 30 tablet, 1 Refills, Maintenance, 04/06/20 11:05:00 EDT, Tablet, [id number], label in [place], all scripts, 161.5, cm, 04/05/20 15:42:00 EDT, Height, 88.8, kg, 04/05/20 16:52:00 EDT,... 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 pap was ob3had cone or [place]EEP in [place] 03/2014. Report in chart. Pap 10/2014 neg/neg.4BX=JOSSELYN II, high grade. Referred for tx.5colpo, ECC, bx Social History Social History Type Response Smoking Status Never smoker; Tobacco user i n household: No entered on: 01/16/18 Sex
--- OUTSIDE RECORDS SUMMARY | 2022-05-18 01:14 | XMS_ITS | Continuity of Care Document ---
:1985 Author Organization [facility] Address [address] [place] [address]- Care Team Providers Name Role Phone Nadege Pollard MD Primary Care Physician Encounter [facility] [place] Date(s): 04/20/20 - 06/09/20 [facility] [address] [place] [id number] Attending Physician: Nadege Pollard MD Admitting Physician: Nadege Pollard MD Allergies, Adverse Reactions, Alerts Substance Reaction Severity Status naproxen Active Immunizations Given and Recorded Vaccine Date Status Refusal Reason tetanus/diphtheria/pertussis, acel(Tdap)1 12/21/14 Given influenza virus vaccine, inactivated2 05/27/14 Given influenza virus vaccine, inactivated3 03/19/10 Given Human Papillomavirus Vaccine 02/23/14 Given Tet/diphth/pertussis, acel (oldterm) 11/08/09 Given influ virus vac, H1N1, inactive(oldterm)4 04/06/09 Given 1Result Comment: [12/21/2014] VIS given in both Bengali and Australian.2Result Comment: [05/27/2014] Fluarix trivalent [id number] Note: VIS GIVEN Admin Note: tolerated well. denies allergies or reactions to previous influenza vaccines. Medications Acetaminophen occasionally for headache, 0 Refills, Maintenance, 08/30/19 8:52:00 EDT Start Date: 08/30/19 Status: Orderedamitriptyline 25 mg oral tablet 25 mg, 1, tablet, By Mouth, Daily at bedtime, label in [place] do not take with topiramate., # 30 tablet, Refills 0, Tot. Refills 0, Maintenance, 01/10/20 13:17:00 EDT, Route to Pharmacy Electronically, [facility]/pharmacy #[id number], 161.5, cm, 12/26/19 22:46:0... Start Date: 01/10/20 Status: Orderedcetirizine 10 mg oral tablet 1 tablet = 10 mg, By Mouth, Daily, during allergy season, # 30 tablet, 1 Refills, Maintenance, 04/06/20 11:05:00 EDT, Tablet, [id number], label in [place], all scripts, 161.5, cm, 04/05/20 15:42:00 EDT, [...] 2(Confirmed) Active ASCUS with positive high risk HPV-[facility] 11/2013 Active colpo(Confirmed)1, 2, 3, 4, 5 05/06/16 pap neg, hpv neg. pap was ob3had cone [facility] [place]EEP [place] [facility] [place] 03/2014. Report in chart. Pap 10/2014 neg/neg.4BX=JOSSELYN II, high grade. Referred for tx.5colpo, ECC, bx Social History Social History Type Response Smoking Status Never smoker; Tobacco user i n household: No entered on: 01/16/18 Sex
--- OUTSIDE RECORDS SUMMARY | 2022-05-18 01:14 | XMS_ITS | Continuity of Care Document ---
:1985 Author Organization [facility] Address [address] [place] [id number]- Care Team Providers Name Role Phone Nadege Pollard MD Primary Care Physician [place] [facility] [facility] [place] - 10/28/19 [facility] [address] [place] [address]- Attending Physician: Lori Barrera MD Admitting Physician: Fernando Stephens MD Referring Physician: Nadege Pollard MD Allergies, Adverse [...] 1Result Comment: [12/21/2014] VIS given in both Swedish and Barbadian.2Result Comment: [05/27/2014] Fluarix trivalent [id number] Note: VIS GIVEN Admin Note: tolerated well. denies allergies or reactions to previous influenza vaccines. Medications Acetaminophen occasionally for headache, 0 Refills, Maintenance, 08/30/19 8:52:00 EDT Start Date: 08/30/19 Status: Orderedcetirizine 10 mg oral tablet 1 tablet = 10 mg, By Mouth, Daily, during allergy season, # 30 tablet, 1 Refills, Maintenance, 10/04/19 9:40:00 EDT, Tablet, [id number], label in Barbadian, all scripts, 161.5, cm, 08/31/19 12:42:00 EDT, Height, 75.4, kg, 07/23/18 4:43:00 EST DRalf.. Start Date: 10/04/19 Stop Date: 12/03/19 Status: Orderedlidocaine-prilocaine 2.5%-2.5% topical cream See Instructions, 1 application Topically Once as directed on package labeling, # 30 Gm, 3 Refills, Maintenance, 10/11/19 14:00:00 EDT, [id number], 1 application Topically Once;as directed on package labeling, 161.5, cm, 08/14... Start Date: 10/11/19 Status: OrderedMultivitamin Daily, buys over the counter, 0 Refills, Maintenance, 08/30/19 8:53:00 EDT Start Date: 08/30/19 Status: Ordered Problem List Condition Effective Dates Status Health Status Informant Allergic rhinitis due to Active pollen(Confirmed) S/P primary low transverse Active (Confirmed) History of tubal ligation(Confirmed) Active Herpes simplex 2(Confirmed) Active ASCUS with positive high risk HPV-[facility] 11/2013 Active colpo(Confirmed)1, 2, 3, 4, 5 Well woman exam(Confirmed) Active 05/06/16 pap neg, hpv neg. pap was ob3had cone or LEEP in [facility] [place] 03/2014. Report in chart. Pap 10/2014 neg/neg.4BX=JOSSELYN II, high grade. Referred for tx.5colpo, ECC, bx Social History Social History Type Response Smoking Status Never smoker; Tobacco user i n household: No entered on: 01/16/18 Sex
--- OUTSIDE RECORDS SUMMARY | 2022-05-18 01:14 | XMS_ITS | Continuity of Care Document ---
:1985 Author Organization [facility] Address Unavailable , Care Team Providers Name Role Phone Nadege Pollard MD Primary Care Physician Encounter [facility] [place] Date(s): 07/04/21 - 08/03/21 [facility] Allergies, Adverse Reactions, Alerts Substance Reaction Severity Status naproxen Active Immunizations Given and Recorded Vaccine Date Status Refusal Reason tetanus/diphtheria/pertussis, acel(Tdap)1 12/21/14 Given influenza virus vaccine, inactivated2 05/27/14 Given influenza virus vaccine, inactivated3 03/19/10 Given Human Papillomavirus Vaccine 02/23/14 Given Tet/diphth/pertussis, acel (oldterm) 11/08/09 Given influ virus vac, H1N1, inactive(oldterm)4 04/06/09 Given 1Result Comment: [12/21/2014] VIS given in both Kosovan and Solomon Islander.2Result Comment: [05/27/2014] Fluarix trivalent [id number] Note: VIS GIVEN Admin Note: tolerated well. [...] 2(Confirmed) Active ASCUS with positive high risk HPV-[facility] 11/2013 Active colpo(Confirmed)1, 2, 3, 4, 5 05/06/16 pap neg, hpv neg. pap was ob3had cone or LEEP in [facility] 03/2014. Report in chart. Pap 10/2014 neg/neg.4BX=JOSSELYN II, high grade. Referred for tx.5colpo, ECC, bx Social History Social History Type Response Smoking Status Never smoker; Tobacco user i n household: No entered on: 01/16/18 Sex
--- OUTSIDE RECORDS SUMMARY | 2022-05-18 01:14 | XMS_ITS | Continuity of Care Document ---
:1985 Author Organization [facility] Address [address] [place] [address]- Care Team Providers Name Role Phone Nadege Pollard MD Primary Care Physician En[place] [facility] [place] Date(s): 11/20/21 - 12/20/21 [facility] [address] [place] [address] Attending Physician: Yola Delacruz Admitting Physician: Yola [...] [12/21/2014] VIS given in both Greenlandic and Finnish.2Result Comment: [05/27/2014] Fluarix trivalent [id number] Note: VIS GIVEN Admin Note: tolerated well. [...] 5 Refills, Maintenance, 07/06/21 15:43:00 EST, Tablet, [facility]/pharmacy #[id number], Partial fill upon patient request if the prescription is for a schedule II opioid drug., 161.5, cm, 06/26/21 9:58:00 EST, Height,... Start Date: 07/06/21 Status: Orderedsucralfate 1 gm oral tablet 1 Gm, 1, tablet, By Mouth, 3 times a day before meals and bedtime, Finnish label please on an empty stomach, # 56 tablet, Refills 0, Tot. Refills 0, Maintenance, 11/20/21 13:58:00 EDT, Route to Pharmacy Electronically, [facility]/pharmacy #1972, Partial alton... Start Date: 11/20/21 Stop Date: 12/04/21 Status: Ordered Problem List Condition Effective Dates Status Health Status Informant Allergic rhinitis due to Active pollen(Confirmed) S/P primary low transverse Active (Confirmed) History of tubal ligation(Confirmed) Active Herpes simplex 2(Confirmed) Active ASCUS with positive high risk HPV-[facility] 11/2013 Active colpo(Confirmed)1, 2, 3, 4, 5 Obese class I(Confirmed) Active 05/06/16 pap neg, hpv neg. pap was ob3had cone or LEEP in [place] 03/2014. Report in chart. Pap 10/2014 neg/neg.4BX=JOSSELYN II, high grade. Referred for tx.5colpo, ECC, bx Social History Social History Type Response Smoking Status Never smoker; Tobacco user i n household: No entered on: 01/16/18 Sex
--- OUTSIDE RECORDS SUMMARY | 2022-05-18 01:14 | XMS_ITS | Continuity of Care Document ---
:1985 Author Organization [facility] Address Unavailable , Care Team Providers Name Role Phone Nadege Pollard MD Primary Care Physician Encounter [facility] [place] Date(s): 03/01/21 - 03/31/21 [facility] Allergies, Adverse Reactions, Alerts Substance Reaction Severity Status naproxen Active Immunizations Given and Recorded Vaccine Date Status Refusal Reason tetanus/diphtheria/pertussis, acel(Tdap)1 12/21/14 Given influenza virus vaccine, inactivated2 05/27/14 Given influenza virus vaccine, inactivated3 03/19/10 Given Human Papillomavirus Vaccine 02/23/14 Given Tet/diphth/pertussis, acel (oldterm) 11/08/09 Given influ virus vac, H1N1, inactive(oldterm)4 04/06/09 Given 1Result Comment: [12/21/2014] VIS given in both Congolese and Thai.2Result Comment: [05/27/2014] Fluarix trivalent [id number] Note: VIS GIVEN Admin Note: tolerated well. denies allergies or reactions to previous influenza vaccines. Medications Acetaminophen occasionally for headache, 0 Refills, Maintenance, 08/30/19 8:52:00 EDT Start Date: 08/30/19 Status: Orderedamitriptyline 25 mg oral tablet 25 mg, 1, tablet, By Mouth, Daily at bedtime, label in urdu do not take with topiramate., # 30 tablet, Refills 0, Tot. Refills 0, Maintenance, 01/10/20 13:17:00 EDT, Route to Pharmacy Electronically, [facility]/pharmacy #[id number], 161.5, cm, 12/26/19 22:46:0... Start Date: 01/10/20 Status: Orderedcetirizine 10 mg oral tablet 1 tablet = 10 mg, By Mouth, Daily, during allergy season, # 30 tablet, 1 Refills, Maintenance, 04/06/20 11:05:00 EDT, Tablet, [facility], label in Thai, all scripts, 161.5, cm, 04/05/20 15:42:00 EDT, Height, 88.8, kg, 04/05/20 16:52:00 EDT,... Start Date: 04/06/20 Stop Date: 06/05/20 Status: OrderedClobetasol (Eqv-Temovate) 0.05% topical cream 0 Refills, Maintenance, 04/06/20 11:04:00 EDT Start Date: 04/06/20 Status: OrderedmetroNIDAZOLE 500 mg oral tablet 1 tablet = 500 mg, By Mouth, Every 12 hours, do not drink alcohol, # 14 tablet, 0 Refills, Maintenance, 03/01/21 16:46:00 EDT, [facility], 161.5, cm, 09/22/20 8:30:00 EDT, Height, 88.8, kg, 04/05/20 16:52:00 EDT, Dry Weight Start Date: 03/01/21 Stop Date: 03/08/21 Status: OrderedMultivitamin Daily, buys over the counter, 0 Refills, Maintenance, 08/30/19 8:53:00 EDT Start Date: 08/30/19 Status: Orderedomeprazole 20 mg oral delayed release tablet 1 tablet = 20 mg, By Mouth, 2 times a day, # 28 tablet, 0 Refills, Maintenance, 09/01/20 11:26:00 EDT, [facility], Partial fill upon patient request if the prescription is for a schedule II opioid drug., 161.5, cm, 09/01/20 10:41:00 EDT, Heigh... Start Date: 09/01/20 Stop Date: 09/15/20 Status: Orderedverapamil 40 mg oral tablet 1 tablet = 40 mg, By Mouth, 3 times a day, # 90 tablet, 5 Refills, Maintenance, 10/19/20 16:01:00 EDT, Tablet, [facility], PLEASE PROVIDE INSTRUCTIONS IN TAJIK; Partial fill upon patient request if the prescription is for a schedule II opioi... Start Date: 10/19/20 Status: Ordered Problem List Condition Effective Dates Status Health Status Informant Allergic rhinitis due to Active pollen(Confirmed) S/P primary low transverse Active (Confirmed) History of tubal ligation(Confirmed) Active Herpes simplex 2(Confirmed) Active ASCUS with positive high risk HPV-[facility] 11/2013 Active colpo(Confirmed)1, 2, 3, 4, 5 05/06/16 pap neg, hpv neg. pap was ob3had cone or LEEP in [facility] 03/2014. Report in chart. Pap 10/2014 neg/neg.4BX=JOSSELYN II, high grade. Referred for tx.5colpo, ECC, bx Social History Social History Type Response Smoking Status Never smoker; Tobacco user i n household: No entered on: 01/16/18 Sex
--- OUTSIDE RECORDS SUMMARY | 2022-05-18 01:14 | XMS_ITS | Continuity of Care Document ---
:[address] [facility] Address [address] [place] [address]- Care Team Providers Name Role Phone Nadege Pollard MD Primary Care Physician Encounter [facility] [place] Date(s): 08/28/20 - 10/01/20 [facility] [address] [place] [address]- Attending Physician: Sunil Srivastava MD Admitting Physician: Sunil Srivastava MD Referring Physician: Nadege Polalrd MD Allergies, Adverse Reactions, Alerts Substance Reaction Severity Status naproxen Active Immunizations Given and Recorded Vaccine Date Status Refusal Reason tetanus/diphtheria/pertussis, acel(Tdap)1 12/21/14 Given influenza virus vaccine, inactivated2 05/27/14 Given influenza virus vaccine, inactivated3 03/19/10 Given Human Papillomavirus Vaccine 02/23/14 Given Tet/diphth/pertussis, acel (oldterm) 11/08/09 Given influ virus vac, H1N1, inactive(oldterm)4 04/06/09 Given 1Result Comment: [12/21/2014] VIS given in both Amharic and South Korean.2Result Comment: [05/27/2014] Fluarix trivalent [id number] Note: VIS GIVEN Admin Note: tolerated well. denies allergies or reactions to previous influenza vaccines. Medications Acetaminophen occasionally for headache, 0 Refills, Maintenance, 08/30/19 8:52:00 EDT Start Date: 08/30/19 Status: Orderedamitriptyline 25 mg oral tablet 25 mg, 1, tablet, By Mouth, Daily at bedtime, label in icelandic do not take with topiramate., # 30 tablet, Refills 0, Tot. Refills 0, Maintenance, 01/10/20 13:17:00 EDT, Route to Pharmacy Electronically, [facility]/pharmacy #[id number], 509.5, cm, 12/26/19 22:46:0... Start Date: 01/10/20 Status: Orderedcetirizine 10 mg oral tablet 1 tablet = 10 mg, By Mouth, Daily, during allergy season, # 30 tablet, 1 Refills, Maintenance, 04/06/20 11:05:00 EDT, Tablet, [facility]/pharmacy #1972, label in South Korean, all scripts, 161.5, cm, 04/05/20 15:42:00 EDT, [...] mg, By Mouth, 3 times a day, 1 tablet daily for one week then 1 tablet twice a day forone week then 1 tablet three times a day, # 90 tablet, 0 Refills, Maintenance, 09/22/20 9:08:00 EDT,Tablet, [facility]/pharmacy #1972, PLEASE PROVIDE INS... Start Date: 09/22/20 Status: Ordered Problem List Condition Effective Dates Status Health Status Informant Allergic rhinitis due to Active pollen(Confirmed) S/P primary low transverse Active (Confirmed) History of tubal ligation(Confirmed) Active Herpes simplex 2(Confirmed) Active ASCUS with positive high risk HPV-[facility] 11/2013 Active colpo(Confirmed)1, 2, 3, 4, 5 05/06/16 pap neg, hpv neg. pap was ob3had cone or LEEP [place] [facility] [place] 03/2014. Report in chart. Pap 10/2014 neg/neg.4BX=JOSSELYN II, high grade. Referred for tx.5colpo, ECC, bx Social History Social History Type Response Smoking Status Never smoker; Tobacco user i n household: No entered on: 01/16/18 Sex
--- OUTSIDE RECORDS SUMMARY | 2022-05-18 01:14 | XMS_ITS | Continuity of Care Document ---
:1985 Author Organization [facility] Address [address] [place] [address]- Care Team Providers Name Role Phone Nadege Pollard MD Primary Care Physician En[place] [facility] [place] Date(s): 10/04/19 - 01/06/20 [facility] [address] [place] [address]- [facility] Attending Physician: Nadege Pollard MD Admitting Physician: [...] 1Result Comment: [12/21/2014] VIS given in both Nigerien and St Helen[place].2Result Comment: [05/27/2014] Fluarix trivalent [id number] Note: VIS GIVEN Admin Note: tolerated well. denies allergies or reactions to previous influenza vaccines. Medications Acetaminophen occasionally for headache, 0 Refills, Maintenance, 08/30/19 8:52:00 EDT Start Date: 08/30/19 Status: Orderedcetirizine 10 mg oral tablet 1 tablet = 10 mg, By Mouth, Daily, during allergy season, # 30 tablet, 1 Refills, Maintenance, 12/25/19 9:04:00 EDT, Tablet, [facility], label in [place], all scripts, 161.5, cm, 08/31/19 12:42:00 EDT, Height, 75.4, kg, 07/23/18 4:43:00 EST, D... Start Date: 12/25/19 Stop Date: 02/23/20 Status: Orderedlidocaine-prilocaine 2.5%-2.5% topical cream See Instructions, 1 application Topically Once as directed on package labeling, # 30 Gm, 3 Refills, Maintenance, 10/11/19 14:00:00 EDT, Cream, [facility] #[id number], 1 application Topically Once;as directed on package labeling, 161.5, cm, 08/14... Start Date: 10/11/19 Status: OrderedMultivitamin Daily, buys over the counter, 0 Refills, Maintenance, 08/30/19 8:53:00 EDT Start Date: 08/30/19 Status: OrderedSUMAtriptan 50 mg oral tablet 1 tablet = 50 mg, By Mouth, Daily, PRN for migraine headache, take at onset of SHINE may repeat dose after 2 hours up to a maximum of 2 label in indonesian, # 9 tablet, 0 Refills, Acute 03/28/20 21:59:00 EDT, 12/26/19 21:58:00 EDT, [facility]t, [facility] Start Date: 12/26/19 Stop Date: 03/28/20 Status: OrderedTopamax 25 mg oral tablet 1 tablet = 25 mg, By Mouth, Daily, label in indonesian, # 30 tablet, 0 Refills, Maintenance, 12/26/19 21:49:00 EDT, [facility], 161.5, cm, 08/31/19 12:42:00 EDT, Height, 75.4, kg, 07/23/18 4:43:00EST, Dry Weight Start Date: 12/26/19 Status: Ordered Problem List Condition Effective Dates Status Health Status Informant Allergic rhinitis due to Active pollen(Confirmed) S/P primary low transverse Active (Confirmed) History of tubal ligation(Confirmed) Active Herpes simplex 2(Confirmed) Active ASCUS with positive high risk HPV-[facility] 11/2013 Active colpo(Confirmed)1, 2, 3, 4, 5 05/06/16 pap neg, hpv neg. pap was ob3had cone or LEEP in [facility] 03/2014. Report in chart. Pap 10/2014 neg/neg.4BX=JOSSELYN II, high grade. Referred for tx.5colpo, ECC, bx Social History Social History Type Response Smoking Status Never smoker; Tobacco user i n household: No entered on: 01/16/18 Sex
--- OUTSIDE RECORDS SUMMARY | 2022-05-18 01:14 | XMS_ITS | Continuity of Care Document ---
:1985 Author Organization [facility] Address [address] [place] [address]- Care Team Providers Name Role Phone Nadege Pollard MD Primary Care Physician Encounter [facility] [place] Date(s): 07/11/21 - 08/10/21 [facility] [address] Attending Physician: Yola Delacruz Admitting Physician: AdmtrYola Referring Physician: AdmtrYola Allergies, Adverse Reactions, Alerts Substance Reaction Severity Status naproxen Active Immunizations Given and Recorded Vaccine Date Status Refusal Reason tetanus/diphtheria/pertussis, acel(Tdap)1 12/21/14 Given influenza virus vaccine, inactivated2 05/27/14 Given influenza virus vaccine, inactivated3 03/19/10 Given Human Papillomavirus Vaccine 02/23/14 Given Tet/diphth/pertussis, acel (oldterm) 11/08/09 Given influ virus vac, H1N1, inactive(oldterm)4 04/06/09 Given 1Result Comment: [12/21/2014] VIS given in both Maltese and Armenian.2Result Comment: [05/27/2014] Fluarix trivalent [id number] Note: VIS GIVEN Admin Note: tolerated well. [...] 5 Refills, Maintenance, 07/06/21 15:43:00 EST, Tablet, [facility]/pharmacy #[id number], Partial fill upon patient request if the prescription is for a schedule II opioid drug., 161.5, cm, 06/26/21 9:58:00 EST, Height,... Start Date: 07/06/21 Status: Ordered Problem List Condition Effective Dates Status Health Status Informant Allergic rhinitis due to Active pollen(Confirmed) S/P primary low transverse Active (Confirmed) History of tubal ligation(Confirmed) Active Herpes simplex 2(Confirmed) Active ASCUS with positive high risk HPV-[facility] 11/2013 Active colpo(Confirmed)1, 2, 3, 4, 5 05/06/16 pap neg, hpv neg. pap was ob3had cone or [facility]EEP [facility] [place] 03/2014. Report in chart. Pap 10/2014 neg/neg.4BX=JOSSELYN II, high grade. Referred for tx.5colpo, ECC, bx Social History Social History Type Response Smoking Status Never smoker; Tobacco user i n household: No entered on: 01/16/18 Sex
--- OUTSIDE RECORDS SUMMARY | 2022-05-18 01:14 | XMS_ITS | Continuity of Care Document ---
:1985 Author Organization [facility] Address [address] [place] [address]- Care Team Providers Name Role Phone Nadege Pollard MD Primary Care Physician Encounter [facility] [place] [facility] [id number] Date(s): 04/18/20 - 06/03/[address] [address] Attending Physician: Nadege Pollard MD Admitting Physician: Nadege Pollard MD Referring Physician: Nadege Pollard MD Allergies, [...] 1Result Comment: [12/21/2014] VIS given in both Mohawk and Malagasy.2Result Comment: [05/27/2014] Fluarix trivalent [id number] Note: VIS GIVEN Admin Note: tolerated well. denies allergies or reactions to previous influenza vaccines. Medications Acetaminophen occasionally for headache, 0 Refills, Maintenance, 08/30/19 8:52:00 EDT Start Date: 08/30/19 Status: Orderedamitriptyline 25 mg oral tablet 25 mg, 1, tablet, By Mouth, Daily at bedtime, label in bulgarian do not take with topiramate., # 30 tablet, Refills 0, Tot. Refills 0, Maintenance, 01/10/20 13:17:00 EDT, Route to Pharmacy Electronically, [facility]/pharmacy #1972, 161.5, cm, 12/26/19 22:46:0... Start Date: 01/10/20 Status: Orderedcetirizine 10 mg oral tablet 1 tablet = 10 mg, By Mouth, Daily, during allergy season, # 30 tablet, 1 Refills, Maintenance, 04/06/20 11:05:00 EDT, [facility]t, [facility], label in Malagasy, all scripts, 161.5, cm, 04/05/20 15:42:00 EDT, [...] 2(Confirmed) Active ASCUS with positive high risk HPV-[facility] 11/2013 Active colpo(Confirmed)1, 2, 3, 4, 5 05/06/16 pap neg, hpv neg. pap was ob3had cone or LEEP in [facility] [place] 03/2014. Report in chart. Pap 10/2014 neg/neg.4BX=JOSSELYN II, high grade. Referred for tx.5colpo, ECC, bx Social History Social History Type Response Smoking Status Never smoker; Tobacco user i n household: No entered on: 01/16/18 Sex
--- OUTSIDE RECORDS SUMMARY | 2022-05-18 01:14 | XMS_ITS | Continuity of Care Document ---
:1985 Author Organization [facility] Address [address] [place] [address]- Care Team Providers Name Role Phone Nadege Pollard MD Primary Care Physician Encounter [facility] [place] Date(s): 07/21/20 - 08/20/20 [facility] [address] [place], [place] [address] Attending Physician: Yola Delacruz Admitting Physician: Yola Delacruz Referring Physician: Yola Delacruz Allergies, Adverse Reactions, Alerts Substance Reaction Severity Status naproxen Active Immunizations Given and Recorded Vaccine Date Status Refusal Reason tetanus/diphtheria/pertussis, acel(Tdap)1 12/21/14 Given influenza virus vaccine, inactivated2 05/27/14 Given influenza virus vaccine, inactivated3 03/19/10 Given Human Papillomavirus Vaccine 02/23/14 Given Tet/diphth/pertussis, acel (oldterm) 11/08/09 Given influ virus vac, H1N1, inactive(oldterm)4 04/06/09 Given 1Result Comment: [12/21/2014] VIS given in both Senegalese and Cameroonian.2Result Comment: [05/27/2014] Fluarix trivalent [id number] Note: VIS GIVEN Admin Note: tolerated well. denies allergies or reactions to previous influenza vaccines. Medications Acetaminophen occasionally for headache, 0 Refills, Maintenance, 08/30/19 8:52:00 EDT Start Date: 08/30/19 Status: Orderedamitriptyline 25 mg oral tablet 25 mg, 1, tablet, By Mouth, Daily at bedtime, label in croatian do not take with topiramate., # 30 tablet, Refills 0, Tot. Refills 0, Maintenance, 01/10/20 13:17:00 EDT, Route to Pharmacy Electronically, [facility]/pharmacy #1972, 161.5, cm, 12/26/19 22:46:0... Start Date: 01/10/20 Status: Orderedcetirizine 10 mg oral tablet 1 tablet = 10 mg, By Mouth, Daily, during allergy season, # 30 tablet, 1 Refills, Maintenance, 04/06/20 11:05:00 EDT, [facility]t, [facility], label in Cameroonian, all scripts, 161.5, cm, 04/05/20 15:42:00 EDT, [...] 2(Confirmed) Active ASCUS with positive high risk HPV-[facility] 11/2013 Active colpo(Confirmed)1, 2, 3, 4, 5 05/06/16 pap neg, hpv neg. pap was ob3had cone or LEEP in [facility] [place] 03/2014. Report in chart. Pap 10/2014 neg/neg.4BX=JOSSELYN II, high grade. Referred for tx.5colpo, ECC, bx Social History Social History Type Response Smoking Status Never smoker; Tobacco user i n household: No entered on: 01/16/18 Sex
--- OUTSIDE RECORDS SUMMARY | 2022-05-18 01:14 | XMS_ITS | Continuity of Care Document ---
:1985 Author Organization [facility] Address [address] [place] [address]- Care Team Providers Name Role Phone Nadege Pollard MD Primary Care Physician Encounter [facility] [place] Date(s): 04/06/20 - 06/03/20 [facility] [address] [place] [id number] Attending Physician: Nadege Pollard MD Admitting [...] 1Result Comment: [12/21/2014] VIS given in both Micronesian and Nigerian.2Result Comment: [05/27/2014] Fluarix trivalent [id number] Note: VIS GIVEN Admin Note: tolerated well. denies allergies or reactions to previous influenza vaccines. Medications Acetaminophen occasionally for headache, 0 Refills, Maintenance, 08/30/19 8:52:00 EDT Start Date: 08/30/19 Status: Orderedamitriptyline 25 mg oral tablet 25 mg, 1, tablet, By Mouth, Daily at bedtime, label in khmer do not take with topiramate., # 30 tablet, Refills 0, Tot. Refills 0, Maintenance, 01/10/20 13:17:00 EDT, Route to Pharmacy Electronically, [facility]/pharmacy #1972, 161.5, cm, 12/26/19 22:46:0... Start Date: 01/10/20 Status: Orderedcetirizine 10 mg oral tablet 1 tablet = 10 mg, By Mouth, Daily, during allergy season, # 30 tablet, 1 Refills, Maintenance, 04/06/20 11:05:00 EDT, Tablet, [facility], label in Nigerian, all scripts, 161.5, cm, 04/05/20 15:42:00 EDT, [...] 2(Confirmed) Active ASCUS with positive high risk HPV-[facility] 11/2013 Active colpo(Confirmed)1, 2, 3, 4, 5 05/06/16 pap neg, hpv neg. pap was ob3had cone or LEEP in [facility] [place] 03/2014. Report in chart. Pap 10/2014 neg/neg.4BX=JOSSELYN II, high grade. Referred for tx.5colpo, ECC, bx Social History Social History Type Response Smoking Status Never smoker; Tobacco user i n household: No entered on: 01/16/18 Sex
--- OUTSIDE RECORDS SUMMARY | 2022-05-18 01:14 | XMS_ITS | Continuity of Care Document ---
:1985 Author Organization [facility] Address [address] [place] [address]- Care Team Providers Name Role Phone Nadege Pollard MD Primary Care Physician [place] [facility] [place] 09/15/20 - 10/15/20 [facility] [address] [place] [address], [place] [address] Attending Physician: Yola Delacruz Admitting Physician: [...] 1Result Comment: [12/21/2014] VIS given in both Divehi and Tunisian.2Result Comment: [05/27/2014] Fluarix trivalent [id number] Note: VIS GIVEN Admin Note: tolerated well. denies allergies or reactions to previous influenza vaccines. Medications Acetaminophen occasionally for headache, 0 Refills, Maintenance, 08/30/19 8:52:00 EDT Start Date: 08/30/19 Status: Orderedamitriptyline 25 mg oral tablet 25 mg, 1, tablet, By Mouth, Daily at bedtime, label in belarusian do not take with topiramate., # 30 tablet, Refills 0, Tot. Refills 0, Maintenance, 01/10/20 13:17:00 EDT, Route to Pharmacy Electronically, [facility]/pharmacy #1972, 161.5, cm, 07/12/20 22:46:0... Start Date: 01/10/20 Status: Orderedcetirizine 10 mg oral tablet 1 tablet = 10 mg, By Mouth, Daily, during allergy season, # 30 tablet, 1 Refills, Maintenance, 04/06/20 11:05:00 EDT, Tablet, [facility], label in Tunisian, all scripts, 161.5, cm, 04/05/20 15:42:00 EDT, [...] tablet, 0 Refills, Maintenance, 09/22/20 9:08:00 EDT,Tablet, [facility], PLEASE PROVIDE INS... Start Date: 09/22/20 Status: Ordered Problem List Condition Effective Dates Status Health Status Informant Allergic rhinitis due to Active pollen(Confirmed) S/P primary low transverse Active (Confirmed) History of tubal ligation(Confirmed) Active Herpes simplex 2(Confirmed) Active ASCUS with positive high risk HPV-[facility] 11/2013 Active colpo(Confirmed)1, 2, 3, 4, 5 05/06/16 pap neg, hpv neg. pap was ob3had cone or LEEP in [facility] [place] 03/2014. Report in chart. Pap 10/2014 neg/neg.4BX=JOSSELYN II, high grade. Referred for tx.5colpo, ECC, bx Social History Social History Type Response Smoking Status Never smoker; Tobacco user i n household: No entered on: 01/16/18 Sex
--- OUTSIDE RECORDS SUMMARY | 2022-05-18 01:14 | XMS_ITS | Continuity of Care Document ---
:1985 Author Organization [facility] Address [address] [place] [address]- Care Team Providers Name Role Phone Nadege Pollard MD Primary Care Physician Encounter [facility] [id number] Date(s): 09/18/20 - 09/25/[address] [address]- Attending Physician: Kae Flor MD Admitting Physician: Kae Flor MD Referring Physician: Norm LORENZO, Jonathon Nesbitt Allergies, Adverse Reactions, Alerts Substance Reaction Severity Status naproxen Active Immunizations Given and Recorded Vaccine Date Status Refusal Reason tetanus/diphtheria/pertussis, acel(Tdap)1 12/21/14 Given influenza virus vaccine, inactivated2 05/27/14 Given influenza virus vaccine, inactivated3 03/19/10 Given Human Papillomavirus Vaccine 02/23/14 Given Tet/diphth/pertussis, acel (oldterm) 11/08/09 Given influ virus vac, H1N1, inactive(oldterm)4 04/06/09 Given 1Result Comment: [12/21/2014] VIS given in both German and Venezuelan.2Result Comment: [05/27/2014] Fluarix trivalent [id number] Note: VIS GIVEN Admin Note: tolerated well. denies allergies or reactions to previous influenza vaccines. Medications Acetaminophen occasionally for headache, 0 Refills, Maintenance, 08/30/19 8:52:00 EDT Start Date: 08/30/19 Status: Orderedamitriptyline 25 mg oral tablet 25 mg, 1, tablet, By Mouth, Daily at bedtime, label in maltese do not take with topiramate., # 30 tablet, Refills 0, Tot. Refills 0, Maintenance, 01/10/20 13:17:00 EDT, Route to Pharmacy Electronically, [facility]/pharmacy #1972, 161.5, cm, 12/26/19 22:46:0... Start Date: 01/10/20 Status: Orderedcetirizine 10 mg oral tablet 1 tablet = 10 mg, By Mouth, Daily, during allergy season, # 30 tablet, 1 Refills, Maintenance, 04/06/20 11:05:00 EDT, Tablet, [facility]/pharmacy #1972, label in Venezuelan, all scripts, 161.5, cm, 04/05/20 15:42:00 EDT, [...] 2(Confirmed) Active ASCUS with positive high risk HPV-[facility] 11/2013 Active colpo(Confirmed)1, 2, 3, 4, 5 05/06/16 pap neg, hpv neg. pap was ob3had cone or LEEP in [facility] [place] 03/2014. Report in chart. Pap 10/2014 neg/neg.4BX=JOSSELYN II, high grade. Referred for tx.5colpo, ECC, bx Social History Social History Type Response Smoking Status Never smoker; Tobacco user i n household: No entered on: 01/16/18 Sex
--- OUTSIDE RECORDS SUMMARY | 2022-05-18 01:14 | XMS_ITS | Continuity of Care Document ---
:[address] [facility] Address [address] [place] [address]- Care Team Providers Name Role Phone Nadege Pollard MD Primary Care Physician [place] [facility] [place] Date(s): 02/25/20 - 03/26/20 [facility] [address] [place] [address]- Attending Physician: Yola Delacruz Admitting Physician: Yola [...] 1Result Comment: [12/21/2014] VIS given in both Yakut and Iraqi.2Result Comment: [05/27/2014] Fluarix trivalent [id number] Note: VIS GIVEN Admin Note: tolerated well. denies allergies or reactions to previous influenza vaccines. Medications Acetaminophen occasionally for headache, 0 Refills, Maintenance, 08/30/19 8:52:00 EDT Start Date: 08/30/19 Status: Orderedamitriptyline 25 mg oral tablet 25 mg, 1, tablet, By Mouth, Daily at bedtime, label in thai do not take with topiramate., # 30 tablet, Refills 0, Tot. Refills 0, Maintenance, 01/10/20 13:17:00 EDT, Route to Pharmacy Electronically, [facility]/pharmacy #1972, 161.5, cm, 12/26/19 22:46:0... Start Date: 01/10/20 Status: Orderedcetirizine 10 mg oral tablet 1 tablet = 10 mg, By Mouth, Daily, during allergy season, # 30 tablet, 1 Refills, Maintenance, 12/25/19 9:04:00 EDT, Tablet, [facility], label in Iraqi, all scripts, 161.5, cm, 08/31/19 12:42:00 EDT, Height, 75.4, kg, 07/23/18 4:43:00 EST, D... Start Date: 12/25/19 Stop Date: 02/23/20 Status: Orderedfluocinonide 0.05% topical ointment 1 application, Topically, 2 times a day, for 30 days, apply a thin film, # 30 Gm, 0 Refills, Acute 04/05/20 10:21:00 EDT, 03/06/20 10:21:00 EDT, [facility]intment, [facility], 1 application Topically 2 times a day,x30 days,Instr:apply a thin film, 161.... Start Date: 03/06/20 Stop Date: 04/05/20 Status: Orderedlidocaine-prilocaine 2.5%-2.5% topical cream See Instructions, 1 application Topically Once as directed on package labeling, # 30 Gm, 3 Refills, Maintenance, 10/11/19 14:00:00 EDT, [id number], 1 application Topically Once;as directed on package labeling, 161.5, cm, 08/14... Start Date: 10/11/19 Status: OrderedMultivitamin Daily, buys over the counter, 0 Refills, Maintenance, 08/30/19 8:53:00 EDT Start Date: 08/30/19 Status: OrderedpredniSONE 20 mg oral tablet 1 tablet = 20 mg, By Mouth, Daily in AM, # 7 tablet, 1 Refills, Maintenance, 02/25/20 10:46:00 EDT, [facility], 161.5, cm, 12/26/19 22:46:00 EDT, Height, 75.4, kg, 07/23/18 4:43:00 EST, Dry Weight Start Date: 02/25/20 Stop Date: 03/10/20 Status: OrderedSUMAtriptan 50 mg oral tablet 1 tablet = 50 mg, By Mouth, Daily, PRN for migraine headache, take at onset of SHINE may repeat dose after 2 hours up to a maximum of 2 label in thai, # 9 tablet, 0 Refills, Acute 03/28/20 21:59:00 EDT, 12/26/19 21:58:00 EDT, Tablet, [facility] Start Date: 12/26/19 Stop Date: 03/28/20 Status: Ordered Problem List Condition Effective Dates Status Health Status Informant Allergic rhinitis due to Active pollen(Confirmed) S/P primary low transverse Active (Confirmed) History of tubal ligation(Confirmed) Active Herpes simplex 2(Confirmed) Active ASCUS with positive high risk HPV-[facility] 11/2013 Active colpo(Confirmed)1, 2, 3, 4, [...]
--- OUTSIDE RECORDS SUMMARY | 2022-05-18 01:14 | XMS_ITS | Continuity of Care Document ---
:1985 Author Organization [facility] Address Unavailable , Care Team Providers Name Role Phone Nadege Pollard MD Primary Care Physician Encounter [facility] [place] Date(s): 06/26/21 - 07/26/21 [facility] Attending Physician: Yola Delacruz Admitting Physician: Yola [...] 1Result Comment: [12/21/2014] VIS given in both Armenian and Saudi Arabian.2Result Comment: [05/27/2014] Fluarix trivalent [id number] Note: VIS GIVEN Admin Note: tolerated well. [...] Active ASCUS with positive high risk HPV-[facility] 11/2013 Active colpo(Confirmed)1, 2, 3, 4, 5 05/06/16 pap neg, hpv neg. pap was ob3had cone or LEEP in [facility] [place] 03/2014. Report in chart. Pap 10/2014 neg/neg.4BX=JOSSELYN II, high grade. Referred for tx.5colpo, ECC, bx Procedures Procedure Date Related Diagnosis Body Site Status LEEP procedure of cervix1 03/2014 Co mpleted 1done in [place] Social History Social History Type Response Smoking Status Never smoker; Tobacco user i n household: No entered on: 01/16/18 Sex
--- OUTSIDE RECORDS SUMMARY | 2022-05-18 01:14 | XMS_ITS | Continuity of Care Document ---
:1985 Author Organization [facility] Address [address] [place] [address]- Care Team Providers Name Role Phone Nadege Pollard MD Primary Care Physician En[place] [facility] [place] Date(s): 09/22/20 - 10/22/20 [facility] [address] [place], [place] [address] Attending Physician: Yola Delacruz [...] 1Result Comment: [12/21/2014] VIS given in both Wolof and Telugu.2Result Comment: [05/27/2014] Fluarix trivalent [id number] Note: VIS GIVEN Admin Note: tolerated well. denies allergies or reactions to previous influenza vaccines. Medications Acetaminophen occasionally for headache, 0 Refills, Maintenance, 08/30/19 8:52:00 EDT Start Date: 08/30/19 Status: Orderedamitriptyline 25 mg oral tablet 25 mg, 1, tablet, By Mouth, Daily at bedtime, label in mongolian do not take with topiramate., # 30 tablet, Refills 0, Tot. Refills 0, Maintenance, 01/10/20 13:17:00 EDT, Route to Pharmacy Electronically, [facility]/pharmacy #1972, 161.5, cm, 12/26/19 22:46:0... Start Date: 01/10/20 Status: Orderedcetirizine 10 mg oral tablet 1 tablet = 10 mg, By Mouth, Daily, during allergy season, # 30 tablet, 1 Refills, Maintenance, 04/06/20 11:05:00 EDT, [facility]t, [facility], label in Telugu, all scripts, 161.5, cm, 04/05/20 15:42:00 EDT, [...] Tablet, [facility], PLEASE PROVIDE INSTRUCTIONS IN YORUBA; Partial fill upon patient request if the prescription is for a schedule II opioi... 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
--- OUTSIDE RECORDS SUMMARY | 2022-05-18 01:14 | XMS_ITS | Continuity of Care Document ---
:1985 Author Organization [facility] Address [address] [place] [address]- Care Team Providers Name Role Phone Latrice LORENZO, Nadege Primary Care Physician En[place] [facility] [place] Date(s): 07/11/21 - 07/18/21 [facility] [address] [place] [id number] Attending Physician: Hang LORENZO, Miryam Rodney Referring Physician: Carmela Alfonso CNM Allergies, Adverse Reactions, Alerts Substance Reaction Severity Status naproxen Active Immunizations Given and Recorded Vaccine Date Status Refusal Reason tetanus/diphtheria/pertussis, acel(Tdap)1 12/21/14 Given influenza virus vaccine, inactivated2 05/27/14 Given influenza virus vaccine, inactivated3 03/19/10 Given Human Papillomavirus Vaccine 02/23/14 Given Tet/diphth/pertussis, acel (oldterm) 11/08/09 Given influ virus vac, H1N1, inactive(oldterm)4 04/06/09 Given 1Result Comment: [12/21/2014] VIS given in both Turkish and Cymro.2Result Comment: [05/27/2014] Fluarix trivalent [id number] Note: VIS GIVEN Admin Note: tolerated well. [...] 2(Confirmed) Active ASCUS with positive high risk [facility] 11/2013 Active colpo(Confirmed)1, 2, 3, 4, 5 05/06/16 pap neg, hpv neg. pap was ob3had cone or LEEP in [facility] 03/2014. Report in chart. Pap 10/2014 neg/neg.4BX=JOSSELYN II, high grade. Referred for tx.5colpo, ECC, bx Vital Signs Most recent to oldest [Reference Range]: 1 Height 161.5 cm (07/11/21 11:43 AM) Weight 74.09 kg (07/11/21 11:43 AM) Body Mass Index [18.5-24.99] 28.41 *H* (07/11/21 11:43 AM) Blood Pressure [90-138/55-84 mm Hg] 90/54 mm Hg (07/11/21 11:43 AM) Blood pressure sites Arm, left (07/11/21 11:43 AM) Weight Obtained Via Standing scale (07/11/21 11:43 AM) Social History Social History Type Response Smoking Status Never smoker; Tobacco user i n household: No entered on: 01/16/18 Sex
--- OUTSIDE RECORDS SUMMARY | 2022-05-18 01:14 | XMS_ITS | Continuity of Care Document ---
:1985 Author Organization [facility] Address [address] [place] [address]- Care Team Providers Name Role Phone Nadege Pollard MD Primary Care Physician [place] [facility] [place] 09/12/20 - 10/15/20 [facility] [address] [place] [address]- Attending Physician: Amanda Cárdenas DO Admitting Physician: Amanda Cárdenas DO Allergies, Adverse Reactions, Alerts Substance Reaction Severity Status naproxen Active Immunizations Given and Recorded Vaccine Date Status Refusal Reason tetanus/diphtheria/pertussis, acel(Tdap)1 12/21/14 Given influenza virus vaccine, inactivated2 05/27/14 Given influenza virus vaccine, inactivated3 03/19/10 Given Human Papillomavirus Vaccine 02/23/14 Given Tet/diphth/pertussis, acel (oldterm) 11/08/09 Given influ virus vac, H1N1, inactive(oldterm)4 04/06/09 Given 1Result Comment: [12/21/2014] VIS given in both Greenlandic and Kiswahili.2Result Comment: [05/27/2014] Fluarix trivalent [id number] Note: VIS GIVEN Admin Note: tolerated well. [...] 01/10/20 13:17:00 EDT, Route to Pharmacy Electronically, [facility]/pharmacy #1972, 161.5, cm, 12/26/19 22:46:0... Start Date: 01/10/20 Status: Orderedcetirizine 10 mg oral tablet 1 tablet = 10 mg, By Mouth, Daily, during allergy season, # 30 tablet, 1 Refills, Maintenance, 04/06/20 11:05:00 EDT, [facility]t, [facility], label in Kiswahili, all scripts, 161.5, cm, 04/05/20 15:42:00 EDT, [...] 2(Confirmed) Active ASCUS with positive high risk HPV-[facility] 11/2013 Active colpo(Confirmed)1, 2, 3, 4, 5 05/06/16 pap neg, hpv neg. pap was ob3had cone or LEEP in [facility] [place] 03/2014. Report in chart. Pap 10/2014 neg/neg.4BX=JOSSELYN II, high grade. Referred for tx.5colpo, ECC, bx Social History Social History Type Response Smoking Status Never smoker; Tobacco user i n household: No entered on: 01/16/18 Sex
--- OUTSIDE RECORDS SUMMARY | 2022-05-18 01:14 | XMS_ITS | Continuity of Care Document ---
:1985 Author Organization [facility] Address Unavailable , Care Team Providers Name Role Phone Latrice LORENZO, Nadege Primary Care Physician Encounter [facility] Date(s): 06/13/21 - 07/13/21 [facility] Allergies, Adverse Reactions, Alerts Substance Reaction Severity Status naproxen Active Immunizations Given and Recorded Vaccine Date Status Refusal Reason tetanus/diphtheria/pertussis, acel(Tdap)1 12/21/14 Given influenza virus vaccine, inactivated2 05/27/14 Given influenza virus vaccine, inactivated3 03/19/10 Given Human Papillomavirus Vaccine 02/23/14 Given Tet/diphth/pertussis, acel (oldterm) 11/08/09 Given influ virus vac, H1N1, inactive(oldterm)4 04/06/09 Given 1Result Comment: [12/21/2014] VIS given in both East Timorese and Gibraltarian.2Result Comment: [05/27/2014] Fluarix trivalent [id number] Note: VIS GIVEN Admin Note: tolerated well. [...] 2(Confirmed) Active ASCUS with positive high risk HPV-[facility] 11/2013 Active colpo(Confirmed)1, 2, 3, 4, 5 05/06/16 pap neg, hpv neg. pap was ob3had cone or LEEP in [facility] [place] 03/2014. Report in chart. Pap 10/2014 neg/neg.4BX=JOSSELYN II, high grade. Referred for tx.5colpo, ECC, bx Social History Social History Type Response Smoking Status Never smoker; Tobacco user i n household: No entered on: 01/16/18 Sex
--- OUTSIDE RECORDS SUMMARY | 2022-05-18 01:14 | XMS_ITS | Continuity of Care Document ---
:1985 Author Organization [facility] Address [address] [place] [address]- Care Team Providers Name Role Phone Nadege Pollard MD Primary Care Physician Encounter [facility] [place] Date(s): 12/21/19 - 01/20/20 [facility] [address] [place] [address] [facility] Allergies, Adverse Reactions, Alerts Substance Reaction Severity Status naproxen Active Immunizations Given and Recorded Vaccine Date Status Refusal Reason tetanus/diphtheria/pertussis, acel(Tdap)1 12/21/14 Given influenza virus vaccine, inactivated2 05/27/14 Given influenza virus vaccine, inactivated3 03/19/10 Given Human Papillomavirus Vaccine 02/23/14 Given Tet/diphth/pertussis, acel (oldterm) 11/08/09 Given influ virus vac, H1N1, inactive(oldterm)4 04/06/09 Given 1Result Comment: [12/21/2014] VIS given in both Wolof and Vincentian.2Result Comment: [05/27/2014] Fluarix trivalent [id number] Note: VIS GIVEN Admin Note: tolerated well. denies allergies or reactions to previous influenza vaccines. Medications Acetaminophen occasionally for headache, 0 Refills, Maintenance, 08/30/19 8:52:00 EDT Start Date: 08/30/19 Status: Orderedamitriptyline 25 mg oral tablet 25 mg, 1, tablet, By Mouth, Daily at bedtime, label in nigerian do not take with topiramate., # 30 tablet, Refills 0, Tot. Refills 0, Maintenance, 01/10/20 13:17:00 EDT, Route to Pharmacy Electronically, [facility]/pharmacy #1972, 161.5, cm, 12/26/19 22:46:0... Start Date: 01/10/20 Status: Orderedcetirizine 10 mg oral tablet 1 tablet = 10 mg, By Mouth, Daily, during allergy season, # 30 tablet, 1 Refills, Maintenance, 12/25/19 9:04:00 EDT, [facility]t, [facility], label in Vincentian, all scripts, 161.5, cm, 08/31/19 12:42:00 EDT, Height, 75.4, kg, 07/23/18 4:43:00 [address]alf.. Start Date: 12/25/19 Stop Date: 02/23/20 Status: Orderedlidocaine-prilocaine 2.5%-2.5% topical cream See Instructions, 1 application Topically Once as directed on package labeling, # 30 Gm, 3 Refills, Maintenance, 10/11/19 14:00:00 EDT, Cream, [facility][id number], 1 application Topically Once;as directed on package [...] to a maximum of 2 label in nigerian, # 9 tablet, 0 Refills, Acute 03/28/20 21:59:00 EDT, 12/26/19 21:58:00 EDT, [facility]t, [facility] Start Date: 12/26/19 Stop Date: 03/28/20 Status: Ordered Problem List Condition Effective Dates Status Health Status Informant Allergic rhinitis due to Active pollen(Confirmed) S/P primary low transverse Active (Confirmed) History of tubal ligation(Confirmed) Active Herpes simplex 2(Confirmed) Active ASCUS with positive high risk HPV-[facility] 11/2013 Active colpo(Confirmed)1, 2, 3, 4, 5 05/06/16 pap neg, hpv neg. pap was ob3had cone or LEEP in [facility] [place] 03/2014. Report in chart. Pap 10/2014 neg/neg.4BX=JOSSELYN II, high grade. Referred for tx.5colpo, ECC, bx Social History Social History Type Response Smoking Status Never smoker; Tobacco user i n household: No entered on: 01/16/18 Sex
--- OUTSIDE RECORDS SUMMARY | 2022-05-18 01:15 | XMS_ITS | Continuity of Care Document ---
:1985 Author Organization [facility] Address [address] [place] [address]- Care Team Providers Name Role Phone Nadege Pollard MD Primary Care Physician Encounter [facility] Date(s): 08/12/19 - 08/22/19 [facility] [address] [place] [address]- [facility] Attending Physician: Yola Delacruz Admitting Physician: AdmYola dotson Referring Physician: AdmtrYola Allergies, Adverse Reactions, Alerts [...] [12/21/2014] VIS given in both Turkish and Croatian.2Result Comment: [05/27/2014] Fluarix trivalent [id number] Note: VIS GIVEN Admin Note: tolerated well. denies allergies or reactions to previous influenza vaccines. Medications Diflucan 150 mg oral tablet 1 tablet = 150 mg, By Mouth, Once, # 1 tablet, 0 Refills, Soft Stop, 05/05/19 14:59:36 EST, Tablet Start Date: 05/05/19 Status: Ordered Problem List Condition Effective Dates Status Health Status Informant S/P primary low transverse Active (Confirmed) History of tubal ligation(Confirmed) Active Herpes simplex 2(Confirmed) Active ASCUS with positive high risk HPV-[facility] 11/2013 Active colpo(Confirmed)1, 2, 3, 4, 5 Well woman exam(Confirmed) Active 05/06/16 pap neg, hpv neg. pap was ob3had cone or LEEP in [facility] 03/2014. Report in chart. Pap 10/2014 neg/neg.4BX=JOSSELYN II, high grade. Referred for tx.5colpo, ECC, bx Social History Social History Type Response Smoking Status Never smoker; Tobacco user i n household: No entered on: 01/16/18 Sex
--- OUTSIDE RECORDS SUMMARY | 2022-05-18 01:15 | XMS_ITS | Continuity of Care Document ---
:1985 Author Organization [facility] Address [address] [place] [address]- Care Team Providers Name Role Phone Nadege Pollard MD Primary Care Physician En[place] [facility] [place] Date(s): 07/06/21 - 08/05/21 [facility] [address], [place] [address] Attending Physician: Yola Delacruz Admitting Physician: Yola [...] 1Result Comment: [12/21/2014] VIS given in both Prydeinig and Italian.2Result Comment: [05/27/2014] Fluarix trivalent [id number] Note: VIS GIVEN Admin Note: tolerated well. [...] pap was ob3had cone or LEEP in [facility] [place] 03/2014. Report in chart. Pap 10/2014 neg/neg.4BX=JOSSELYN II, high grade. Referred for tx.5colpo, ECC, bx Social History Social History Type Response Smoking Status Never smoker; Tobacco user i n household: No entered on: 01/16/18 Sex
--- OUTSIDE RECORDS SUMMARY | 2022-05-18 01:15 | XMS_ITS | Continuity of Care Document ---
:1985 Author Organization [facility] Address [address] [place] [address]- Care Team Providers Name Role Phone Nadege Pollard MD Primary Care Physician Encounter [facility] R [id number] Date(s): 04/18/20 - 06/03/[address] [address] Attending Physician: Nadege Pollard MD [...] 1Result Comment: [12/21/2014] VIS given in both Welsh and French.2Result Comment: [05/27/2014] Fluarix trivalent [id number] Note: VIS GIVEN Admin Note: tolerated well. denies allergies or reactions to previous influenza vaccines. Medications Acetaminophen occasionally for headache, 0 Refills, Maintenance, 08/30/19 8:52:00 EDT Start Date: 08/30/19 Status: Orderedamitriptyline 25 mg oral tablet 25 mg, 1, tablet, By Mouth, Daily at bedtime, label in persian do not take with topiramate., # 30 tablet, Refills 0, Tot. Refills 0, Maintenance, 01/10/20 13:17:00 EDT, Route to Pharmacy Electronically, [facility]/pharmacy #[id number], 161.5, cm, 12/26/19 22:46:0... Start Date: 01/10/20 Status: Orderedcetirizine 10 mg oral tablet 1 tablet = 10 mg, By Mouth, Daily, during allergy season, # 30 tablet, 1 Refills, Maintenance, 04/06/20 11:05:00 EDT, Tablet, [facility], label in French, all scripts, 161.5, cm, 04/05/20 15:42:00 EDT, [...] 2(Confirmed) Active ASCUS with positive high risk HPV-[facility] 11/2013 Active colpo(Confirmed)1, 2, 3, 4, 5 05/06/16 pap neg, hpv neg. pap was ob3had cone or LEEP in [facility] [place] 03/2014. Report in chart. Pap 10/2014 neg/neg.4BX=JOSSELYN II, high grade. Referred for tx.5colpo, ECC, bx Social History Social History Type Response Smoking Status Never smoker; Tobacco user i n household: No entered on: 01/16/18 Sex
--- OUTSIDE RECORDS SUMMARY | 2022-05-18 01:15 | XMS_ITS | Continuity of Care Document ---
:1985 Author Organization [facility] Address [address] [place] [address]- Care Team Providers Name Role Phone Nadege Pollard MD Primary Care Physician [place] [facility] [place] Date(s): 08/25/20 - 09/24/20 [facility] [address] [place] [address]- Allergies, Adverse Reactions, Alerts Substance Reaction Severity Status naproxen Active Immunizations Given and Recorded Vaccine Date Status Refusal Reason tetanus/diphtheria/pertussis, acel(Tdap)1 12/21/14 Given influenza virus vaccine, inactivated2 05/27/14 Given influenza virus vaccine, inactivated3 03/19/10 Given Human Papillomavirus Vaccine 02/23/14 Given Tet/diphth/pertussis, acel (oldterm) 11/08/09 Given influ virus vac, H1N1, inactive(oldterm)4 04/06/09 Given 1Result Comment: [12/21/2014] VIS given in both Greenlandic and Danish.2Result Comment: [05/27/2014] Fluarix trivalent [id number] Note: VIS GIVEN Admin Note: tolerated well. denies allergies or reactions to previous influenza vaccines. Medications Acetaminophen occasionally for headache, 0 Refills, Maintenance, 08/30/19 8:52:00 EDT Start Date: 08/30/19 Status: Orderedamitriptyline 25 mg oral tablet 25 mg, 1, tablet, By Mouth, Daily at bedtime, label in guyanese do not take with topiramate., # 30 tablet, Refills 0, Tot. Refills 0, Maintenance, 01/10/20 13:17:00 EDT, Route to Pharmacy Electronically, [facility]/pharmacy #1972, 161.5, cm, 12/26/19 22:46:0... Start Date: 01/10/20 Status: Orderedcetirizine 10 mg oral tablet 1 tablet = 10 mg, By Mouth, Daily, during allergy season, # 30 tablet, 1 Refills, Maintenance, 04/06/20 11:05:00 EDT, Tablet, [facility]/pharmacy #1972, label in Danish, all scripts, 161.5, cm, 04/05/20 15:42:00 EDT, [...] 2(Confirmed) Active ASCUS with positive high risk HPV-[facility] 11/2013 Active colpo(Confirmed)1, 2, 3, 4, [...]
--- OUTSIDE RECORDS SUMMARY | 2022-05-18 01:15 | XMS_ITS | Continuity of Care Document ---
:1985 Author Organization [facility] Address [address] [place] [address]- Care Team Providers Name Role Phone Nadege Pollard MD Primary Care Physician Encounter [facility] [place] Date(s): 11/13/21 - 12/13/21 [facility] [address] [place] [id number] Allergies, Adverse Reactions, Alerts Substance Reaction Severity Status naproxen Active Immunizations Given and Recorded Vaccine Date Status Refusal Reason tetanus/diphtheria/pertussis, acel(Tdap)1 12/21/14 Given influenza virus vaccine, inactivated2 05/27/14 Given influenza virus vaccine, inactivated3 03/19/10 Given Human Papillomavirus Vaccine 02/23/14 Given Tet/diphth/pertussis, acel (oldterm) 11/08/09 Given influ virus vac, H1N1, inactive(oldterm)4 04/06/09 Given 1Result Comment: [12/21/2014] VIS given in both Djiboutian and Togolese.2Result Comment: [05/27/2014] Fluarix trivalent [id number] Note: VIS GIVEN Admin Note: tolerated well. [...] times a day before meals and bedtime, Togolese label please on an empty stomach, # 56 tablet, Refills 0, Tot. Refills 0, Maintenance, 11/20/21 13:58:00 EDT, [id number], Partial alton... Start Date: 11/20/21 Stop Date: 12/04/21 Status: Ordered Problem List Condition Effective Dates Status Health Status Informant Allergic rhinitis due to Active pollen(Confirmed) S/P primary low transverse Active (Confirmed) History of tubal ligation(Confirmed) Active Herpes simplex 2(Confirmed) Active ASCUS with positive high risk HPV-[facility] 11/2013 Active colpo(Confirmed)1, 2, 3, 4, 5 Obese class I(Confirmed) Active 05/06/16 pap neg, hpv neg. pap was ob3had cone or LEEP in [facility] [place] 03/[place]. Report in chart. Pap 10/2014 neg/neg.4BX=JOSSELYN II, high grade. Referred for tx.5colpo, ECC, bx Social History Social History Type Response Smoking Status Never smoker; Tobacco user i n household: No entered on: 01/16/18 Sex
--- OUTSIDE RECORDS SUMMARY | 2022-05-18 01:15 | XMS_ITS | Continuity of Care Document ---
:1985 Author Organization [facility] Address [address] [place] [address]- Care Team Providers Name Role Phone Nadege Pollard MD Primary Care Physician Encounter [facility] Date(s): 10/04/19 - 10/11/19 [facility] [address] [place] [id number] Attending Physician: Nadege Pollard MD Allergies, Adverse Reactions, [...] [12/21/2014] VIS given in both Greenlandic and Haitian.2Result Comment: [05/27/2014] Fluarix trivalent [id number] Note: VIS GIVEN Admin Note: tolerated well. denies allergies or reactions to previous influenza vaccines. Medications Acetaminophen occasionally for headache, 0 Refills, Maintenance, 08/30/19 8:52:00 EDT Start Date: 08/30/19 Status: Orderedcetirizine 10 mg oral tablet 1 tablet = 10 mg, By Mouth, Daily, during allergy season, # 30 tablet, 1 Refills, Maintenance, 10/04/19 9:40:00 EDT, [facility]t, [facility], label in Haitian, all scripts, 161.5, cm, 08/31/19 12:42:00 EDT, Height, 75.4, kg, 07/23/18 4:43:00 EST, D... Start Date: 10/04/19 Stop Date: 12/03/19 Status: Orderedlidocaine-prilocaine 2.5%-2.5% topical cream See Instructions, 1 application Topically Once as directed on package labeling, # 30 Gm, 3 Refills, Maintenance, 10/11/19 14:00:00 EDT, Cream, [facility] #[id number], 1 application Topically Once;as directed on package labeling, 161.5, cm, 08/14... Start Date: 10/11/19 Status: OrderedMultivitamin Daily, buys over the counter, 0 Refills, Maintenance, 08/30/19 8:53:00 EDT Start Date: 08/30/19 Status: OrderedValtrex 500 mg oral tablet 500 mg, 1, tablet, By Mouth, 2 times a day, for 3 days, # 24 tablet, Refills 2, Tot. Refills 2, Acute 10/20/19 12:50:00 EDT, 10/11/19 12:50:00 EDT, Route to Pharmacy Electronically, [id number], 161.5, cm, 08/31/19 12:42:00 EDT, Height... Start Date: 10/11/19 Stop Date: 10/20/19 Status: Ordered Problem List Condition Effective Dates Status Health Status Informant Allergic rhinitis due to Active pollen(Confirmed) S/P primary low transverse Active (Confirmed) History of tubal ligation(Confirmed) Active Herpes simplex 2(Confirmed) Active ASCUS with positive high risk HPV-[facility] 11/2013 Active colpo(Confirmed)1, 2, 3, 4, 5 Well woman exam(Confirmed) Active 05/06/16 pap neg, hpv neg. pap was ob3had cone or LEEP in [place] 03/2014. Report in chart. Pap 10/2014 neg/neg.4BX=JOSSELYN II, high grade. Referred for tx.5colpo, ECC, bx Social History Social History Type Response Smoking Status Never smoker; Tobacco user i n household: No entered on: 01/16/18 Sex
--- OUTSIDE RECORDS SUMMARY | 2022-05-18 01:15 | XMS_ITS | Continuity of Care Document ---
:1985 Author Organization [facility] Address [address] [place] [address]- Care Team Providers Name Role Phone Nadege Pollard MD Primary Care Physician [place] [facility] [place] Date(s): 09/18/20 - 10/18/20 [facility] [address] [address]- Attending Physician: Yola Delacruz Admitting Physician: AdmYola dotson Referring Physician: [id number] Allergies, Adverse Reactions, Alerts Substance Reaction Severity Status naproxen Active Immunizations Given and Recorded Vaccine Date Status Refusal Reason tetanus/diphtheria/pertussis, acel(Tdap)1 12/21/14 Given influenza virus vaccine, inactivated2 05/27/14 Given influenza virus vaccine, inactivated3 03/19/10 Given Human Papillomavirus Vaccine 02/23/14 Given Tet/diphth/pertussis, acel (oldterm) 11/08/09 Given influ virus vac, H1N1, inactive(oldterm)4 04/06/09 Given 1Result Comment: [12/21/2014] VIS given in both Austrian and Sao Tomean.2Result Comment: [05/27/2014] Fluarix trivalent [id number] Note: VIS GIVEN Admin Note: tolerated well. denies allergies or reactions to previous influenza vaccines. Medications Acetaminophen occasionally for headache, 0 Refills, Maintenance, 08/30/19 8:52:00 EDT Start Date: 08/30/19 Status: Orderedamitriptyline 25 mg oral tablet 25 mg, 1, tablet, By Mouth, Daily at bedtime, label in polish do not take with topiramate., # 30 tablet, Refills 0, Tot. Refills 0, Maintenance, 01/10/20 13:17:00 EDT, Route to Pharmacy Electronically, [facility]/pharmacy #[id number], 161.5, cm, 12/26/19 22:46:0... Start Date: 01/10/20 Status: Orderedcetirizine 10 mg oral tablet 1 tablet = 10 mg, By Mouth, Daily, during allergy season, # 30 tablet, 1 Refills, Maintenance, 04/06/20 11:05:00 EDT, [facility]t, [facility], label in Sao Tomean, all scripts, 161.5, cm, 04/05/20 15:42:00 EDT, [...] 2(Confirmed) Active ASCUS with positive high risk HPV-[facility] 11/2013 Active colpo(Confirmed)1, 2, 3, 4, 5 05/06/16 pap neg, hpv neg. pap was ob3had cone or LEEP in [facility] [place] 03/[place]. Report in chart. Pap 10/2014 neg/neg.4BX=JOSSELYN II, high grade. Referred for tx.5colpo, ECC, bx Social History Social History Type Response Smoking Status Never smoker; Tobacco user i n household: No entered on: 01/16/18 Sex
--- OUTSIDE RECORDS SUMMARY | 2022-05-18 01:15 | XMS_ITS | Continuity of Care Document ---
:1985 Author Organization [facility] Address [address] [place] [address]- Care Team Providers Name Role Phone Nadege Pollard MD Primary Care Physician [place] [facility] [facility] [place] - 08/18/[address] [address] Attending Physician: Nadege Pollard MD Admitting Physician: [...] 1Result Comment: [12/21/2014] VIS given in both Israeli and Swedish.2Result Comment: [05/27/2014] Fluarix trivalent [id number] Note: VIS GIVEN Admin Note: tolerated well. denies allergies or reactions to previous influenza vaccines. Medications Acetaminophen occasionally for headache, 0 Refills, Maintenance, 08/30/19 8:52:00 EDT Start Date: 08/30/19 Status: Orderedamitriptyline 25 mg oral tablet 25 mg, 1, tablet, By Mouth, Daily at bedtime, label in japanese do not take with topiramate., # 30 tablet, Refills 0, Tot. Refills 0, Maintenance, 01/10/20 13:17:00 EDT, Route to Pharmacy Electronically, [facility]/pharmacy #1972, 161.5, cm, 12/26/19 22:46:0... Start Date: 01/10/20 Status: Orderedcetirizine 10 mg oral tablet 1 tablet = 10 mg, By Mouth, Daily, during allergy season, # 30 tablet, 1 Refills, Maintenance, 04/06/20 11:05:00 EDT, [facility]t, [facility], label in Swedish, all scripts, 161.5, cm, 04/05/20 15:42:00 EDT, [...] 2(Confirmed) Active ASCUS with positive high risk HPV-[facility] 11/2013 Active colpo(Confirmed)1, 2, 3, 4, 5 05/06/16 pap neg, hpv neg. pap was ob3had cone or LEEP in [place] 03/2014. Report in chart. Pap 10/2014 neg/neg.4BX=JOSSELYN II, high grade. Referred for tx.5colpo, ECC, bx Social History Social History Type Response Smoking Status Never smoker; Tobacco user i n household: No entered on: 01/16/18 Sex
--- OUTSIDE RECORDS SUMMARY | 2022-05-18 01:15 | XMS_ITS | Continuity of Care Document ---
:1985 Author Organization [facility] Address [address] [place] [address]- Care Team Providers Name Role Phone Nadege Pollard MD Primary Care Physician En[place] [facility] [place] Date(s): 08/30/19 - 10/09/[address] [address] Attending Physician: Nadege Pollard MD Admitting Physician: [...] [12/21/2014] VIS given in both Swedish and Tanzanian.2Result Comment: [05/27/2014] Fluarix trivalent [id number] Note: VIS GIVEN Admin Note: tolerated well. denies allergies or reactions to previous influenza vaccines. Medications Acetaminophen occasionally for headache, 0 Refills, Maintenance, 08/30/19 8:52:00 EDT Start Date: 08/30/19 Status: Orderedcetirizine 10 mg oral tablet 1 tablet = 10 mg, By Mouth, Daily, during allergy season, # 30 tablet, 1 Refills, Maintenance, 10/04/19 9:40:00 EDT, [facility]t, [facility], label in Tanzanian, all scripts, 161.5, cm, 08/31/19 12:42:00 EDT, Height, 75.4, kg, 07/23/18 4:43:00 EST, D... Start Date: 10/04/19 Stop Date: 12/03/19 Status: OrderedMultivitamin Daily, buys over the counter, 0 Refills, Maintenance, 08/30/19 8:53:00 EDT Start Date: 08/30/19 Status: Orderedomeprazole 20 mg oral enteric coated capsule 1 capsule = 20 mg, By Mouth, Daily, for 7 days, # 7 capsule, 0 Refills, Acute 10/11/19 9:44:00 EDT, 10/04/19 9:44:00 EDT, EC Capsule, [facility], label in Tanzanian, 161.5, cm, 08/31/19 12:42:00 EDT, Height, 75.4, kg, 07/23/18 4:43:00 EST, Dry W... Start Date: 10/04/19 Stop Date: 10/11/19 Status: Ordered Problem List Condition Effective Dates Status Health Status Informant Allergic rhinitis due to Active pollen(Confirmed) S/P primary low transverse Active (Confirmed) History of tubal ligation(Confirmed) Active Herpes simplex 2(Confirmed) Active ASCUS with positive high risk HPV-[facility] 11/2013 Active colpo(Confirmed)1, 2, 3, 4, 5 Well woman exam(Confirmed) Active 05/06/16 pap neg, hpv neg. pap was ob3had cone or LEEP in [facility] [place] 03/[place]. Report in chart. Pap 10/2014 neg/neg.4BX=JOSSELYN II, high grade. Referred for tx.5colpo, ECC, bx Social History Social History Type Response Smoking Status Never smoker; Tobacco user i n household: No entered on: 01/16/18 Sex
[2022-05-18 01:34] LABS: MANUAL DIFF FLAG NO
[2022-05-18 01:36] LABS: Basophils Percent Auto 0.6 % (0-2); Eosinophils Absolute Auto 0.2 X10*3/uL (0.0-0.4); Eosinophils Percent Auto 2.8 % (0-4); Hematocrit 33.2 % (37.0-47.0); Hemoglobin 11.2 g/dl (12.0-16.0); Imm Gran Abs Auto 0.03 X10*3/uL (0.00-0.03); Imm Gran Pct Auto 0.4 % (0.0-0.4); Lymphocytes Absolute Auto 1.5 X10*3/uL (1.2-4.9); Lymphocytes Percent Auto 21.6 % (20-40); Mean Corpuscular HGB Conc 33.7 g/dl (31.0-35.0); Mean Corpuscular Hemoglobin 29.6 pg (27.0-33.0); Mean Corpuscular Volume 87.8 fL (80.0-98.0); Mean Platelet Volume 10.6 fL (9.4-12.3); Monocytes Absolute Auto 0.5 X10*3/uL (0.1-1.2); Neutrophils Absolute Auto 4.6 x10*3/uL (2.0-8.3); Neutrophils Percent Auto 67.6 % (45-73); Platelet Count 180 X10*3/uL (160-400); Red Blood Count 3.78 X10*6/uL (4.20-5.50); Red Cell Distribution Width 14.5 % (11.0-16.0); White Blood Count 6.9 X10*3/uL (4.8-10.8)
[2022-05-18 01:41] LABS: Prothrombin Time 11.8 SEC (10.0-13.1)
[2022-05-18 01:44] LABS: Partial Thromboplastin Time 29.9 SEC (26.0-36.4)
[2022-05-18 01:45] LABS: D Dimer High Sensitivity < 150 NG/ML
[2022-05-18 01:56] LABS: Troponin-I High Sensitivity < 3.5 ng/L (<3.5-17.0)
[2022-05-18 02:14] LABS: Alanine Aminotransferase 10 U/L (0-31); Albumin Level 3.5 g/dL (3.5-5.0); Alkaline Phosphatase 72 U/L (39-117); Anion Gap 9 (12-20); Aspartate Amino Transferase 13 U/L (5-31); Bilirubin Total 0.2 mg/dL (0.0-1.0); Blood Urea Nitrogen 17 mg/dL (9-16); Calcium 8.3 mg/dL (8.4-10.2); Carbon Dioxide 24 mmol/L (22-29); Chloride 106 mmol/L (96-108); Creatinine Clr Calc Pharmacy 108.3; Estimated Glomerular Filt Rate > 60; Glucose Random 108 mg/dL (60-115); HCG Quantitative < 2 mIU/mL; Lipase 28 U/L (8-78); Potassium 3.5 mmol/L (3.3-5.1); Sodium 135 mmol/L (135-145); Total Protein 5.3 g/dL (6.5-8.0)
--- NOTE | 2022-05-18 08:21 | ECG_ITS ---
Test Reason : CHEST PAIN Blood Pressure : / mmHG Vent. Rate : 060 BPM Atrial Rate : 060 BPM P-R Int : 132 ms QRS Dur : 082 ms QT Int : 438 ms P-R-T Axes : 043 025 012 degrees QTc Int : 438 ms Normal sinus rhythm Normal ECG No previous ECGs available Referred By: Manjinder Real Electronically Signed By:NATO DE LA O MD
== END 2022-05-18 03:53 | disposition home or self-care (01) ==
PROVIDERS: Emergency Provider Emergency Medicine Emergency Medical Services
DX: M94.0 Chondrocostal junction syndrome [Tietze] (principal)
CPT/HCPCS: 36415; 71046; 80053; 83690; 84484; 84702; 85025; 85379; 85610; 85730; 93005; 96361; 96374; 96375; 99283; 99284; J1885; J2405

== ENCOUNTER 2023-03-20 15:10 | Emergency (ER) | payer OTHER, SELFPAY ==
[2023-03-20 15:18] VITALS: BP 153/98; PULSE 66; O2SAT 100
[2023-03-20 15:23] VITALS: BP 143/93; PULSE 75; RESP 18; TEMP 36.9; O2SAT 100; BMI 34.1
--- NOTE | 2023-03-20 20:50 | ED.GENADULT ---
HPI - General Adult General Chief complaint: General Medical Stated complaint: chest pain, hypertension Time Seen by Provider: 03/20/23 16:15 History of Present Illness HPI narrative: Patient is a 29-year-old female presents today with having headache to the right side associated with some numbness and tingling to the hands. Patient claims the symptom was fairly abrupt in onset. There is no sudden in her family. No history of diabetes, hypertension, high cholesterol, smoking, [place]. no history of recreational drug use. Patient claims tingling sensation. There is no trauma. There is no gross change in vision. There is no long distant travel no leg swelling no history of blood clots. Positive history of migraine in the past. Able to move all arms and legs but feels the arm is numb on the right side Related Data Previous Rx's Medication Instructions Recorded cefuroxime axetil 250 mg tablet 250 mg PO BID #14 tabs 11/21/21 phenazopyridine 200 mg tablet 200 mg PO TID PRN pain 6 doses #14 11/21/21 (Pyridium) tabs Allergies Allergy/AdvReac Type Severity Reaction Status Date / Time No Known Allergies Allergy Verified 05/18/22 00:10 Review of Systems Review of Systems: Positive headache positive right sided numbness Yes all other systems are reviewed and are negative [facility] Social History Social History Advance Directives: No Advance Directives Information Provided: No Physical Exam ED Vital Signs: Vital Signs - 24 hr 03/20/23 15:23 Temperature 98.5 F Pulse Rate 75 Respiratory Rate 18 Blood Pressure 143/93 H Pulse Oximetry 100 Oxygen Delivery Method Room Air BMI result Body Mass Index 34.1 Appearance: Alert. Oriented X3. No acute distress. Eyes: Pupils equal, round and reactive to light. ENT: Pharynx normal. Neck: Normal inspection. Neck supple. No lymph nodes noted. No crepitus CVS: Normal heart rate and rhythm. Pulses normal. Normal S1 and S2 Respiratory: No respiratory distress. Breath sounds normal. No Wheezing. No rales Abdomen: Soft and nontender. No rigidity. No distention. good BS x4 Skin: Skin warm and dry. Normal skin color. Normal skin turgor. Extremities: No lower extremity edema. Neurovascular intact to all extremities. No Lacerations. No Rash Neuro: Oriented X 3. No motor deficit. No sensory deficit. Moving all extermities. No slurred speech NIH Stroke Scale Internal: Initial- Upon Arrival Time: 20:52 Level of Consciousness: Alert Level of Consciousness Questions: Answers both questions correctly Level of Consciousness Commands: Performs both tasks correctly Best Gaze: Normal Visual: No visual loss Facial Palsy: Normal Motor Arm (Right): No drift Motor Arm (Left): No drift Motor Leg (Right): No drift Motor Leg (Left): No drift Limb Ataxia: Absent Sensory: Normal Best Language: No aphasia Dysarthia: Normal Extinction and Inattention: No abnormality Score: 0 Medications Administered Discontinued Medications Generic Name Dose Route Start Last Admin Trade Name Freq PRN Reason Stop Dose Admin Diphenhydramine HCl 25 mg 03/20/23 18:17 03/20/23 18:30 Diphenhydramine Hcl 50 Mg/Ml Vial IVPUSH 03/20/23 18:18 25 mg ONCE ONE Administration Sodium Chloride 1,000 mls @ 999 mls/hr 03/20/23 18:15 03/20/23 19:00 Ns IV 03/20/23 19:15 Infused .Q1H1M LUIS Infusion Sodium Chloride 1,000 mls @ 999 mls/hr 03/20/23 18:30 03/20/23 20:01 Ns IV 03/20/23 19:30 Infused .Q1H1M LUIS Infusion Ketorolac Tromethamine 30 mg 03/20/23 18:17 03/20/23 18:30 Ketorolac Tromethamine 30 Mg/Ml Vial IVPUSH 03/20/23 18:18 30 mg ONCE ONE Administration Metoclopramide HCl 10 mg 03/20/23 18:17 03/20/23 18:30 Metoclopramide Hcl 10 Mg/2 Ml Vial IVPUSH 03/20/23 18:18 10 mg ONCE ONE Administration Medical Decision Making Medical Decision Making MDM Narrative: Patient had nonspecific headache on 1 side. Associated with some tingling sensation in the hands. There is no focal weakness. CT scan of the head was grossly negative. Positive history of migraine. Less than the age of 50 unlikely to have temporal arteritis. Patient symptoms less than 6 hours in the setting of negative CT head unlikely to have an intracranial bleed. Patient given migraine treatment with good resolution of symptoms. Tingling is gone away patient is headache is gone. Well-appearing. Neurologically intact. She is 37 years old she has no significant cardiac risk factors. No history of diabetes, hypertension, high cholesterol, smoking, [place]. history not consistent with ACS. My interpretation of her EKG showed a sinus rhythm heart rate is 60 DE QRS QTC within normal limits is no acute ST segment elevation. In the setting of 2 sets of negative enzymes chest pain greater than 6 hours unlikely to have ACS. History not consistent patient's enzyme negative. Heart score is less than 3. Will have patient follow-up on an outpatient basis. In the setting of having headache unlikely to have a stroke. Patient neurologically intact NIH stroke scale was 0 Differential Diagnosis Differential Diagnoses: The differential diagnosis associated with the presentation includes ACS, intracranial bleed, mass, migraine, stroke Lab Data MDM Lab Attestation statement: I reviewed the patient's lab results. 03/20/23 18:41 03/20/23 18:41 Labs: Lab Results 03/20/23 03/20/23 03/20/23 Range/Units 17:44 18:41 19:56 WBC 9.7 (4.8-10.8) X10*3/uL RBC 4.53 (4.20-5.50) X10*6/uL Hgb 13.1 (12.0-16.0) g/dl Hct 39.2 (37.0-47.0) % MCV 86.5 (80.0-98.0) fL MCH 28.9 (27.0-33.0) pg MCHC 33.4 (31.0-35.0) g/dl RDW 14.4 (11.0-16.0) % Plt Count 233 D (160-400) X10*3/uL MPV 10.1 (9.4-12.3) fL Immature Gran % (Auto) 0.5 H (0.0-0.4) % Neut % (Auto) 81.9 H (45-73) % Lymph % (Auto) 12.4 L (20-40) % [place] % (Auto) 4.2 (2-11) % Eos % (Auto) 0.6 (0-4) % Baso % (Auto) 0.4 (0-2) % Lymph # (Auto) 1.2 (1.2-4.9) X10*3/uL [place] # (Auto) 0.4 (0.1-1.2) X10*3/uL Eos # (Auto) 0.1 (0.0-0.4) X10*3/uL Baso # (Auto) 0.0 (0.0-0.2) X10*3/uL Abs Immat Gran (auto) 0.05 H (0.00-0.03) X10*3/uL Absolute Neuts (auto) 7.9 (2.0-8.3) x10*3/uL Absolute Nucleated RBC 0.000 (0.0-0.012) X10*3/uL Nucleated RBC % (auto) 0.0 (0.0-0.2) /100WBC Sodium 142 (135-145) mmol/L Potassium 4.0 (3.3-5.1) mmol/L Chloride 111 H (96-108) mmol/L Carbon Dioxide 21 L (22-29) mmol/L Anion Gap 14 (12-20) BUN 9 (9-16) mg/dL Creatinine 0.62 (0.5-1.4) mg/dL Estim Creat Clear Calc 148.6 Estimated GFR > 60 Random Glucose 88 (60-115) mg/dL Calcium 9.1 D (8.4-10.2) mg/dL Total Bilirubin 0.3 (0.0-1.0) mg/dL Direct Bilirubin 0.1 (0.0-0.5) mg/dL AST 18 (5-31) U/L ALT 15 (0-31) U/L Alkaline Phosphatase 66 (39-117) U/L Troponin I High Sens < 2.7 < 2.7 (<3.5-17.0) ng/L Total Protein 6.5 (6.5-8.0) g/dL Albumin 3.9 (3.5-5.0) g/dL Lipase 56 (8-78) U/L Urine Color Yellow Urine Appearance Clear Urine pH 7.5 (5.0-9.0) Ur Specific [place] <= 1.005 (1.005-1.025) Urine Protein Negative (Neg-Trace) mg/dL Urine Glucose (UA) Negative (Negative) mg/dL Urine Ketones Negative (Negative) mg/dL Urine Blood Negative (Negative) Urine Nitrite Negative (Negative) Ur Leukocyte Esterase Negative (Negative) Urine Test NEGATIVE (NEGATIVE) COVID-19 (ROSALBA) Negative (Negative) COVID-19 Clin Com See Note Independent Interpretation I performed an independent interpretation of an: EKG (Sinus heart rate is 60 DE QRS QTC within normal limits is no acute ST segment elevation noted) and Plain X-Ray (Chest x-ray showed no pneumonia no pneumothorax) Radiology Impression Discussion of test interpretation with radiology: I have reviewed the radiologist's reading. Independent Historian Clinical information obtained from an independent historian. History obtained from or confirmed by: Spouse Discharge Plan Discharge Clinical Impression: Migraine Patient Disposition: Home, Self-Care Instructions: Migraine Headache (ED) Prescriptions: No Action phenazopyridine [Pyridium] 200 mg tablet 200 mg PO TID PRN (Reason: pain) Qty: 14 0RF cefuroxime axetil 250 mg tablet 250 mg PO BID Qty: 14 0RF Referrals: Physician,Unknown J [Primary Care Provider] - 03/24/23
== END 2023-03-20 21:23 | disposition home or self-care (01) ==
PROVIDERS: Emergency Provider Emergency Medicine Emergency Medical Services
DX: G43.909 Migraine, unspecified, not intractable, without status migrainosus (principal); Z11.52 Encounter for screening for COVID-19
CPT/HCPCS: 36415; 70450; 80048; 80076; 81003; 81025; 83690; 84484; 85025; 87635; 93005; 96361; 96374; 96375; 99284; 99285; J1200; J1885; J2765

== ENCOUNTER 2023-06-01 14:03 | Emergency (ER) | payer OTHER, SELFPAY ==
--- NOTE | 2023-06-01 | ECG_ITS ---
Test Reason : chest pain Blood Pressure : / mmHG Vent. Rate : 067 BPM Atrial Rate : 067 BPM P-R Int : 124 ms QRS Dur : 086 ms QT Int : 422 ms P-R-T Axes : 044 025 024 degrees QTc Int : 445 ms Normal sinus rhythm Normal ECG When compared with ECG of 20-MAR-2023 16:10, No significant change was found Referred By: Generic ED Physician Electronically Signed By:Asad Dodson
--- NOTE | ~2023-06-01 | XR_ITS ---
EXAMINATION: XR CHEST CLINICAL INFORMATION: Chest pain COMPARISON: Chest radiograph 05/18/2022. TECHNIQUE: Frontal view of the chest was obtained. FINDINGS: Normal appearance of the cardiomediastinal structures. No effusions or pneumothoraces. No focal pulmonary consolidation. Normal pattern of pulmonary vasculature. No displaced rib fractures identified. XR/XR chest 1V IMPRESSION: Normal chest. Lungs clear.
[2023-06-01 14:11] VITALS: BP 131/80; PULSE 61; RESP 18; TEMP 36.1; O2SAT 99; BMI 33.9
[2023-06-01 14:34] LABS: MANUAL DIFF FLAG NO
[2023-06-01 14:40] LABS: Basophils Percent Auto 0.4 % (0-2); Eosinophils Absolute Auto 0.1 X10*3/uL (0.0-0.4); Eosinophils Percent Auto 0.7 % (0-4); Hematocrit 40.1 % (37.0-47.0); Hemoglobin 13.2 g/dl (12.0-16.0); Imm Gran Abs Auto 0.04 X10*3/uL (0.00-0.03); Imm Gran Pct Auto 0.4 % (0.0-0.4); Lymphocytes Absolute Auto 1.2 X10*3/uL (1.2-4.9); Lymphocytes Percent Auto 12.1 % (20-40); Mean Corpuscular HGB Conc 32.9 g/dl (31.0-35.0); Mean Corpuscular Hemoglobin 29.2 pg (27.0-33.0); Mean Corpuscular Volume 88.7 fL (80.0-98.0); Monocytes Absolute Auto 0.6 X10*3/uL (0.1-1.2); Monocytes Percent Auto 5.9 % (2-11); Neutrophils Percent Auto 80.5 % (45-73); Platelet Count 210 X10*3/uL (160-400); Red Blood Count 4.52 X10*6/uL (4.20-5.50); Red Cell Distribution Width 14.5 % (11.0-16.0)
[2023-06-01 14:50] LABS: Anion Gap 11 (12-20); Blood Urea Nitrogen 21 mg/dL (9-16); Calcium 9.2 mg/dL (8.4-10.2); Carbon Dioxide 23 mmol/L (22-29); Chloride 110 mmol/L (96-108); Estimated Glomerular Filt Rate > 60; Glucose Random 89 mg/dL (60-115); Potassium 4.2 mmol/L (3.3-5.1); Sodium 140 mmol/L (135-145)
[2023-06-01 15:03] LABS: Troponin-I High Sensitivity < 2.7 ng/L (<3.5-17.0)
[2023-06-01 15:04] VITALS: BP 118/64; PULSE 60; RESP 16; O2SAT 99
[2023-06-01 15:21] LABS: Influenza A PCR NEGATIVE (Negative); Influenza B PCR NEGATIVE (Negative); Resp Syncy Virus RNA Qual PCR NEGATIVE (Negative); SARS COV2 PCR INHOUSE NEGATIVE (Negative)
--- NOTE | 2023-06-01 16:37 | ED.CHESTPAIN ---
HPI - Chest Pain General Chief Complaint: Chest Pain Stated Complaint: Chest pain Time Seen by Provider: 06/01/23 16:27 Source: patient, RN notes reviewed and old records reviewed Mode of arrival: ambulatory History of Present Illness HPI narrative: 37-year-old female with past medical history of COVID-19 two weeks ago presenting to the ED complaining of mid/left-sided chest pain intermittently x few days worsening today with associated generalized fatigue, lightheadedness, chills. Denies known fever, cough, SOB, abdominal pain, nausea/vomiting, pedal edema, headache MD complaint: chest pain Related Data Previous Rx's Medication Instructions Recorded cefuroxime axetil 250 mg tablet 250 mg PO BID #14 tabs 11/21/21 phenazopyridine 200 mg tablet 200 mg PO TID PRN pain 6 doses #14 11/21/21 (Pyridium) tabs Allergies Allergy/AdvReac Type Severity Reaction Status Date / Time No Known Allergies Allergy Verified 05/18/22 00:10 Review of Systems Review of Systems: Constitutional: No Fever, + Chills, +fatigue ENT/Mouth: No Ear Pain, No Nasal Congestion, No sore throat, No Rhinorrhea, No Swallowing Difficulty Cardiovascular: + Chest Pain, No SOB Respiratory: No Cough, No Sputum, No Wheezing Gastrointestinal: No Nausea, No Vomiting, No Diarrhea, No Constipation, No Abdominal pain Genitourinary: No Dysuria, No Hematuria, No Urinary Incontinence/retention Musculoskeletal: No joint pain, No Myalgias, No Joint Swelling Skin: No Skin Lesions, No rash Neuro: No Weakness, No Numbness, No Paresthesias, +lightheaded Yes all other systems are reviewed and are negative Constitutional: Constitutional: Reports as per HPI Neurologic: Denies Abnormal speech present [facility] Past Medical History Attestation statement: The following information was validated with the patient. Source: old records reviewed Social History Social History Alcohol intake: never Smoked in Last 30 Days: No Use of substances other than those prescribed or required for medical reasons: No Advance Directives: No Advance Directives Information Provided: No Patient : No Physical Exam Vital Signs: Vital Signs: Last Vital Signs Temp 97.0 F 06/01/23 14:11 Pulse 68 06/01/23 19:57 Resp 12 06/01/23 17:22 BP 103/65 06/01/23 19:57 Pulse Ox 100 06/01/23 17:22 O2 Del Method Room Air 06/01/23 17:22 BMI result Body Mass Index 33.9 Const: General: cooperative, healthy appearing and no acute distress Orientation/consciousness: patient oriented x3 Limitations: no limitations HEENT: Head: Yes normal to inspection and Yes atraumatic Ears: hearing grossly normal bilaterally General nose exam: Normal external nose present Face and sinus: Yes normal facial exam Throat: Yes posterior oropharynx normal and Yes tonsils normal Eyes: General: appearance normal, both eyes and all related structures EOM: EOMs intact bilaterally Neck: Neck: Yes normal visual inspection and Yes no meningeal signs Resp: Effort & Inspection: normal respiratory effort and no respiratory distress Auscultation: clear to auscultation bilaterally, no rhonchi and no wheezes Cardio: Rate: regular rate Heart sounds: S1 normal heart sound present and S2 normal heart sound present GI: Inspection: Yes normal to inspection Palpation (GI): Soft to palpation, nontender, no guarding and not rigid : General: Yes no CVA tenderness Back/Spine/Pelvis: Back: no CVA tenderness Skin: Rashes: no rashes Wounds: no wounds Neuro: General: patient oriented x3, gait normal, tone normal, moves all extremities, no meningeal signs, no focal motor deficits and CN's II-XI intact bilaterally Cranial nerves: Yes CN's II-XII intact bilaterally and Yes Bilaterally intact EOM present Cognition (Neuro): normal cognition Speech: No Abnormal speech present Gait exam (Neuro): Normal gait present Motor exam (neuro): 5/5 motor strength present throughout, Pronator motor function not present and no tremor noted Coordination: [id number] test normal Romberg Test: Negative Extrem: General: Yes normal to inspection, Yes no pedal edema and Yes no calf tenderness Course Course Course Narrative: -labs reassuring. Troponin negative. COVID/flu/RSV negative -2029--UA with RBC/blood, not infected. Orthostatic vital signs negative XR chest 1V IMPRESSION: Normal chest. Lungs clear. Patient requesting prescription for dizziness. Will give p.o. meclizine and sent prescription to pharmacy. >Results discussed with patient including worrisome signs and symptoms and strict return precautions, and when to return to the emergency department. They verbalized understanding and feel safe for discharge at this time. Medications Administered Discontinued Medications Generic Name Dose Route Start Last Admin Trade Name [place] PRN Reason Stop Dose Admin Sodium Chloride 1,000 mls @ 999 mls/hr 06/01/23 16:45 06/01/23 18:16 Ns IV 06/01/23 17:45 Infused .Q1H1M LUIS Infusion Medical Decision Making Medical Decision Making [facility] Narrative: 37-year-old female with past medical history of COVID-19 two weeks ago presenting to the ED complaining of mid/left-sided chest pain intermittently x few days worsening today with associated generalized fatigue, lightheadedness, chills. On exam vital signs stable, NAD, nontoxic appearing, physical exam unremarkable, no focal neuro deficits, lungs CTA. Concern for viral illness vs medical abnormalities/infectious etiology vs orthostasis vs PNA. Symptoms atypical for ACS/PE or CHF Plan: EKG, labs, viral testing, UA, orthostatics, IVF, re-evaluate Please refer to course for remaining clinical decision making, interpretation of labs/imaging results, and discussions with consultants and/or family members. Differential Diagnosis Differential Diagnoses: The differential diagnosis associated with the presentation includes As above Admission/Observation Consideration of admission/observation: Escalation of care including admission/observation considered Lab Data [facility] Lab Attestation statement: I reviewed the patient's lab results. 06/01/23 14:21 06/01/23 14:21 Labs: Lab Results 06/01/23 06/01/23 Range/Units 14:21 19:49 WBC 10.0 (4.8-10.8) X10*3/uL RBC 4.52 (4.20-5.50) X10*6/uL Hgb 13.2 (12.0-16.0) g/dl Hct 40.1 (37.0-47.0) % MCV 88.7 (80.0-98.0) fL MCH 29.2 (27.0-33.0) pg MCHC 32.9 (31.0-35.0) g/dl RDW 14.5 (11.0-16.0) % Plt Count 210 (160-400) X10*3/uL MPV 11.0 (9.4-12.3) fL Immature Gran % (Auto) 0.4 (0.0-0.4) % Neut % (Auto) 80.5 H (45-73) % Lymph % (Auto) 12.1 L (20-40) % [place] % (Auto) 5.9 (2-11) % Eos % (Auto) 0.7 (0-4) % Baso % (Auto) 0.4 (0-2) % Lymph # (Auto) 1.2 (1.2-4.9) X10*3/uL [place] # (Auto) 0.6 (0.1-1.2) X10*3/uL Eos # (Auto) 0.1 (0.0-0.4) X10*3/uL Baso # (Auto) 0.0 (0.0-0.2) X10*3/uL Abs Immat Gran (auto) 0.04 H (0.00-0.03) X10*3/uL Absolute Neuts (auto) 8.0 (2.0-8.3) x10*3/uL Absolute Nucleated RBC 0.000 (0.0-0.012) X10*3/uL Nucleated RBC % (auto) 0.0 (0.0-0.2) /100WBC Sodium 140 (135-145) mmol/L Potassium 4.2 (3.3-5.1) mmol/L Chloride 110 H (96-108) mmol/L Carbon Dioxide 23 (22-29) mmol/L Anion Gap 11 L (12-20) BUN 21 H (9-16) mg/dL Creatinine 0.78 (0.5-1.4) mg/dL Estim Creat Clear Calc 106.0 Estimated GFR > 60 Random Glucose 89 (60-115) mg/dL Calcium 9.2 (8.4-10.2) mg/dL Magnesium 2.1 (1.6-2.6) mg/dL Total Bilirubin 0.6 (0.0-1.0) mg/dL Direct Bilirubin 0.2 (0.0-0.5) mg/dL AST 15 (5-31) U/L ALT 10 (0-31) U/L Alkaline Phosphatase 64 (39-117) U/L Troponin I High Sens < 2.7 (<3.5-17.0) ng/L Total Protein 6.9 (6.5-8.0) g/dL Albumin 4.2 (3.5-5.0) g/dL Beta HCG, Quant < 2 mIU/mL Urine Color Yellow Urine Appearance Clear Urine pH 6.0 (5.0-9.0) Ur Specific [place] 1.020 (1.005-1.025) Urine Protein Negative (Neg-Trace) mg/dL Urine Glucose (UA) Negative (Negative) mg/dL Urine Ketones 40 (Negative) mg/dL Urine Blood Large (3+) H (Negative) Urine Nitrite Negative (Negative) Ur Leukocyte Esterase Trace H (Negative) Urine RBC 6-10 H (0-2) /HPF Urine WBC 0-5 (0-5) /HPF Ur Squamous Epith Cells 0-2 (0-2) /HPF Urine Bacteria Trace (None Seen) Hyaline Casts 0-2 (0-2) /LPF Influenza Type A (PCR) NEGATIVE (Negative) Influenza Type B (PCR) NEGATIVE (Negative) RSV RNA Qual (PCR) NEGATIVE (Negative) SARS-CoV-2 RNA (RT-PCR) NEGATIVE (Negative) Independent Interpretation I performed an independent interpretation of an: EKG (My interpretation EKG normal sinus rhythm rate of 67. QTC 445. No significant change when compared to prior. No STEMI) Radiology Impression Discussion of test interpretation with radiology: I have reviewed the radiologist's reading. Independent Historian Clinical information obtained from an independent historian. History obtained from or confirmed by: Friend External Record Review External record reviewed: Inpatient record, Office record, Outpatient record, Prior outpatient labs, Prior outpatient radiology, Primary care record and Outside ED record Tests considered The following testing was considered but not selected: As above Discharge Plan Discharge Clinical Impression: Atypical chest pain, Episodic lightheadedness Patient Disposition: Home, Self-Care Instructions: Lightheadedness (ED), Noncardiac Chest Pain (ED) Additional Instructions: Your blood work and chest x-ray were reassuring You tested negative for COVID, flu and RSV Make sure you are staying hydrated at home If symptoms persist or worsen return to the emergency department Follow-up with her doctor Tu an?lisis de maryse y tu radiograf?a de t?rax fueron tranquilizadores. Rigo negativo en COVID, gripe y VRS Aseg?rate de mantenerte hidratado en casa. Si los s?ntomas persisten o empeoran, regrese al departamento de emergencias. Seguimiento con alba m?dico. Prescriptions: No Action phenazopyridine [Pyridium] 200 mg tablet 200 mg PO TID PRN (Reason: pain) Qty: 14 0RF cefuroxime axetil 250 mg tablet 250 mg PO BID Qty: 14 0RF Referrals: Physician,Unknown J [Primary Care Provider] - Print Language: [place]
[2023-06-01] MEDS: 0.9 % Sodium Chloride 1,000 ML 999 ML IV (17:20)
[2023-06-01 17:21] LABS: Alanine Aminotransferase 10 U/L (0-31); Albumin Level 4.2 g/dL (3.5-5.0); Alkaline Phosphatase 64 U/L (39-117); Aspartate Amino Transferase 15 U/L (5-31); Bilirubin Direct 0.2 mg/dL (0.0-0.5); Bilirubin Total 0.6 mg/dL (0.0-1.0); Magnesium 2.1 mg/dL (1.6-2.6); Total Protein 6.9 g/dL (6.5-8.0)
[2023-06-01 17:22] VITALS: BP 113/77; PULSE 65; RESP 12; O2SAT 100
[2023-06-01 17:32] LABS: HCG Quantitative < 2 mIU/mL
--- NOTE | 2023-06-01 19:22 | PC.NURSE ---
this rn assumed care of pt. pt sitting next to bed on chair at this time. pt instructed on need for urine sample at this time.
[2023-06-01 19:50] VITALS: BP 105/58; PULSE 60
[2023-06-01 19:52] VITALS: BP 103/68; PULSE 73
[2023-06-01 19:57] VITALS: BP 103/65; PULSE 68
[2023-06-01 19:58] LABS: Appearance Urine Clear; Color Urine Yellow; Glucose Urine UA Negative (Negative); Leukocyte Esterase Urine Trace (Negative); Nitrite Urine Negative (Negative); UMIC TRIGGER UACC YES; Urine Blood Large (3+) (Negative); Urine Ketones 40 mg/dL (Negative); Urine Protein Negative (Neg-Trace)
[2023-06-01 20:00] LABS: Bacteria Urine Trace (None Seen); Hyaline Casts Urine 0-2 /LPF (0-2); Squamous Epithelial Cell Urine 0-2 /HPF (0-2); WBC Urine 0-5 /HPF (0-5)
--- NOTE | 2023-06-01 21:05 | PC.NURSE ---
pt discharged without medication administration.
== END 2023-06-01 21:11 | disposition home or self-care (01) ==
PROVIDERS: Physician Assistant; Emergency Provider Emergency Medicine
DX: R07.9 Chest pain, unspecified (principal); R42 Dizziness and giddiness; R53.83 Other fatigue; Z20.822 Contact with and (suspected) exposure to COVID-19; Z20.828 Contact with and (suspected) exposure to other viral communicable diseases
CPT/HCPCS: 0241U; 36415; 71045; 80048; 80076; 81001; 83735; 84484; 84702; 85025; 93005; 96360; 99284; 99285

== ENCOUNTER → 2023-06-01 14:08 | Outpatient (BNV) | payer OTHER, SELFPAY | PROVIDERS: Emergency Provider Emergency Medicine; Visit Provider Internal Medicine Cardiovascular Disease | DX: R07.9 Chest pain, unspecified (principal) | CPT/HCPCS: 93010 ==

== ENCOUNTER 2024-02-14 00:36 | Emergency (ER) | payer OTHER, SELFPAY ==
--- NOTE | ~2024-02-14 | CT_ITS ---
EXAMINATION: CT ABDOMEN AND PELVIS WITH CONTRAST CLINICAL INFORMATION: Pain. COMPARISON: None available. TECHNIQUE: Multidetector volumetric images were obtained from the superior aspect of the liver through the pubic symphysis following administration 85 mL of Omnipaque 350 intravenous contrast. Sagittal and coronal reformatted images were obtained on the technologist's workstation. Oral contrast: No This CT examination was performed using dose optimization techniques as appropriate, variously including the following: *Automated exposure control *Adjustment of mA and/or kV according to patient size (this includes techniques or standardized protocols for targeted exams where dose is matched to indication/reason for exam; i.e. extremities or head) *Use of iterative reconstruction technique DLP: 878 mGy-cm FINDINGS: LUNG BASES: The visualized lung bases are unremarkable. LIVER, GALLBLADDER, AND BILIARY TREE: The liver is normal in size, shape, and attenuation. No focal hepatic lesion or biliary ductal dilatation is present. The gallbladder is unremarkable with no evidence of radiopaque gallstones, gallbladder wall thickening, or obvious pericholecystic inflammatory changes. PANCREAS: Unremarkable. SPLEEN: Unremarkable. ADRENAL GLANDS: Unremarkable. KIDNEYS AND URETERS: The kidneys are normal in size, shape, and attenuation. No hydronephrosis, hydroureter, or calculi seen. No perinephric stranding. BLADDER: Unremarkable. GASTROINTESTINAL TRACT: The small and large bowel are unremarkable. The appendix is unremarkable. ABDOMINAL WALL: No significant hernia is appreciated. LYMPH NODES: Normal. VASCULAR: Unremarkable. PELVIC VISCERA: Unremarkable. OSSEOUS STRUCTURES: Unremarkable. CT/CT abdomen pelvis w IV con IMPRESSION: No significant abnormality. Fleischner guidelines were followed. Electronically signed by: Art Gambino MD 02/14/2024 04:33 AM EDT
[2024-02-14 00:41] VITALS: BP 139/71; PULSE 60; RESP 14; TEMP 36.2; O2SAT 99; BMI 37.0
[2024-02-14 00:53] LABS: MANUAL DIFF FLAG NO
[2024-02-14 00:55] LABS: Basophils Percent Auto 0.4 % (0-2); Eosinophils Absolute Auto 0.1 X10*3/uL (0.0-0.4); Eosinophils Percent Auto 1.8 % (0-4); Hematocrit 36.5 % (37.0-47.0); Hemoglobin 12.4 g/dl (12.0-16.0); Imm Gran Abs Auto 0.04 X10*3/uL (0.00-0.03); Imm Gran Pct Auto 0.5 % (0.0-0.4); Lymphocytes Absolute Auto 1.5 X10*3/uL (1.2-4.9); Lymphocytes Percent Auto 19.2 % (20-40); Mean Corpuscular Hemoglobin 29.5 pg (27.0-33.0); Mean Corpuscular Volume 86.7 fL (80.0-98.0); Mean Platelet Volume 10.3 fL (9.4-12.3); Monocytes Absolute Auto 0.6 X10*3/uL (0.1-1.2); Monocytes Percent Auto 8.2 % (2-11); Neutrophils Absolute Auto 5.4 x10*3/uL (2.0-8.3); Neutrophils Percent Auto 69.9 % (45-73); Platelet Count 214 X10*3/uL (160-400); Red Blood Count 4.21 X10*6/uL (4.20-5.50); Red Cell Distribution Width 14.4 % (11.0-16.0); White Blood Count 7.8 X10*3/uL (4.8-10.8)
[2024-02-14 01:08] VITALS: BP 128/83; PULSE 55; RESP 19; TEMP 36.9; O2SAT 98
[2024-02-14 01:09] LABS: Alanine Aminotransferase 17 U/L (0-31); Alkaline Phosphatase 76 U/L (39-117); Anion Gap 13 (12-20); Aspartate Amino Transferase 16 U/L (5-31); Bilirubin Total 0.2 mg/dL (0.0-1.0); Blood Urea Nitrogen 23 mg/dL (9-16); Calcium 9.5 mg/dL (8.4-10.2); Carbon Dioxide 23 mmol/L (22-29); Chloride 107 mmol/L (96-108); Creatinine Clr Calc Pharmacy 107.2; Estimated Glomerular Filt Rate > 60; Glucose Random 94 mg/dL (60-115); Lipase 28 U/L (8-78); Potassium 4.5 mmol/L (3.3-5.1); Sodium 138 mmol/L (135-145); Total Protein 6.6 g/dL (6.5-8.0)
[2024-02-14 02:00] VITALS: BP 125/75; PULSE 61; RESP 16; TEMP 36.9; O2SAT 99
--- NOTE | 2024-02-14 02:49 | ED.ABDPAIN ---
HPI - Abdominal Pain General Chief Complaint: Abdominal Pain Stated Complaint: Abd Pain Time Seen by Provider: 02/14/24 02:43 Source: patient Mode of arrival: ambulatory Limitations: no limitations History of Present Illness ED Provider: Dr. Jody De HPI narrative: Patient comes to the emergency room complaining of 3 weeks of intermittent periumbilical pain radiating towards the right lower quadrant. Patient complaining of nausea, no vomiting or diarrhea, no constipation. Denies fever or chills. Related Data Previous Rx's ?Medication ?Instructions ?Recorded cefuroxime axetil 250 mg tablet 250 mg PO BID #14 tabs 11/21/21 phenazopyridine 200 mg tablet 200 mg PO TID PRN pain 6 doses #14 11/21/21 (Pyridium) tabs meclizine 25 mg tablet 25 mg PO TID PRN dizziness #14 tabs 06/01/23 hyoscyamine sulfate 0.125 mg tablet 0.125 mg PO QID PRN dyspepsia #10 02/14/24 tabs Allergies Allergy/AdvReac Type Severity Reaction Status Date / Time No Known Allergies Allergy Verified 02/14/24 00:42 Review of Systems Review of Systems Constitutional : No Weight loss, No Fever, No Chills, No Night Sweats, No Fatigue, No Malaise ENT/Mouth : No Hearing loss, No Ear Pain, No Nasal Congestion, No Sinus Pain, No Hoarseness, No sore throat, No Rhinorrhea, No Swallowing Difficulty Eyes: No Eye Pain, No Swelling, No Redness, No Foreign Body, No Discharge, No Vision Changes Cardiovascular : No Chest Pain, No SOB, No Dyspnea on Exertion, No Orthopnea, No Edema, No Palpitations Respiratory : No Cough, No Sputum, No Wheezing, No Smoke Exposure, No Dyspnea Gastrointestinal : Complaining of nausea, no vomiting or diarrhea, constipation, complaining of periumbilical pain in right lower quadrant pain, sometimes left lower quadrant pain Genitourinary : no irregular bleeding, No Dysuria, No Urinary Frequency, No Hematuria, No Urinary Incontinence, No Urgency, No Flank Pain, No Urinary Flow Changes, No Hesitancy Musculoskeletal : No joint pain, No Myalgias, No Joint Swelling Skin : No Skin Lesions, No rash Neuro : No Weakness, No Numbness, No Paresthesias, No Loss of Consciousness, No Dizziness, No Headache Psych : No Anxiety/Panic, No Depression, No SI/HI/AH/VH, No Social Issues, Heme/Lymph: No Bruising, No Bleeding,No Lymphadenopathy Endocrine : No Polyuria, No Polydipsia, No Temperature Intolerance [facility] Social History Social History Alcohol intake: never Smoked in Last 30 Days: No Advance Directives: No Advance Directives Information Provided: Yes Do you have a plan to hurt others: No Plan Patient : No Physical Exam ED Vital Signs: Vital Signs - 24 hr 02/14/24 00:41 02/14/24 01:08 02/14/24 02:00 Temperature 97.1 F 98.4 F 98.5 F Pulse Rate 60 55 61 Respiratory Rate 14 19 16 Blood Pressure 139/71 128/83 125/75 Pulse Oximetry 99 98 99 Oxygen Delivery Method Room Air Room Air Room Air 02/14/24 04:00 Temperature 98.0 F Pulse Rate 65 Respiratory Rate 16 Blood Pressure 118/74 Pulse Oximetry 99 Oxygen Delivery Method Room Air BMI result Body Mass Index 37.0 Const Other: Appearance: Alert. Oriented X3. No acute distress. Eyes: Pupils equal, round and reactive to light. ENT: Pharynx normal. Neck: Normal inspection. Neck supple. No lymph nodes noted. No crepitus CVS: Normal heart rate and rhythm. Pulses normal. Normal S1 and S2 Respiratory: No respiratory distress. Breath sounds normal. No Wheezing. No rales Abdomen: Soft, tenderness to palpation in periumbilical and bilateral lower quadrants. Skin: Skin warm and dry. Normal skin color. Normal skin turgor. Extremities: No lower extremity edema. No Lacerations. No Rash Neuro: Oriented X 3. No motor deficit. No sensory deficit. Moving all extremities. No slurred speech. CN 2 through 12 grossly intact Psych: calm, cooperative, normal affect Course Course Course Narrative: -patient receiving ketorolac and Zofran IV, CT scan pending Medical Decision Making Medical Decision Making MDM Narrative: My interpretation of labs: White blood cell count normal, normal hematology and chemistry, normal LFTs, urinalysis negative for UTI, hCG negative -my interpretation of CT scan, no obvious abnormality. -radiology report, no acute pathology -patient likely having musculoskeletal pain Differential Diagnosis Differential Diagnoses: The differential diagnosis associated with the presentation includes (Ovarian cyst, appendicitis, UTI, pyelonephritis, musculoskeletal pain) Admission/Observation Consideration of admission/observation: Escalation of care including admission/observation considered (Given patient's symptoms, admission was considered) Lab Data MDM Lab Attestation statement: I reviewed the patient's lab results. 02/14/24 00:49 02/14/24 00:49 Labs: Lab Results 02/14/24 02/14/24 Range/Units 00:49 03:17 WBC 7.8 (4.8-10.8) X10*3/uL RBC 4.21 (4.20-5.50) X10*6/uL Hgb 12.4 (12.0-16.0) g/dl Hct 36.5 L (37.0-47.0) % MCV 86.7 (80.0-98.0) fL MCH 29.5 (27.0-33.0) pg MCHC 34.0 (31.0-35.0) g/dl RDW 14.4 (11.0-16.0) % Plt Count 214 (160-400) X10*3/uL MPV 10.3 (9.4-12.3) fL Immature Gran % (Auto) 0.5 H (0.0-0.4) % Neut % (Auto) 69.9 (45-73) % Lymph % (Auto) 19.2 L (20-40) % [place] % (Auto) 8.2 (2-11) % Eos % (Auto) 1.8 (0-4) % Baso % (Auto) 0.4 (0-2) % Lymph # (Auto) 1.5 (1.2-4.9) X10*3/uL [place] # (Auto) 0.6 (0.1-1.2) X10*3/uL Eos # (Auto) 0.1 (0.0-0.4) X10*3/uL Baso # (Auto) 0.0 (0.0-0.2) X10*3/uL Abs Immat Gran (auto) 0.04 H (0.00-0.03) X10*3/uL Absolute Neuts (auto) 5.4 (2.0-8.3) x10*3/uL Absolute Nucleated RBC 0.000 (0.0-0.012) X10*3/uL Nucleated RBC % (auto) 0.0 (0.0-0.2) /100WBC Sodium 138 (135-145) mmol/L Potassium 4.5 (3.3-5.1) mmol/L Chloride 107 (96-108) mmol/L Carbon Dioxide 23 (22-29) mmol/L Anion Gap 13 (12-20) BUN 23 H (9-16) mg/dL Creatinine 0.80 (0.5-1.4) mg/dL Estim Creat Clear Calc 107.2 Estimated GFR > 60 Random Glucose 94 (60-115) mg/dL Calcium 9.5 (8.4-10.2) mg/dL Total Bilirubin 0.2 (0.0-1.0) mg/dL AST 16 (5-31) U/L ALT 17 (0-31) U/L Alkaline Phosphatase 76 (39-117) U/L Total Protein 6.6 (6.5-8.0) g/dL Albumin 4.0 (3.5-5.0) g/dL Lipase 28 (8-78) U/L Beta HCG, Quant < 2 mIU/mL Urine Color Yellow Urine Appearance Clear Urine pH 6.5 (5.0-9.0) Ur Specific [place] 1.010 (1.005-1.025) Urine Protein Negative (Neg-Trace) mg/dL Urine Glucose (UA) Negative (Negative) mg/dL Urine Ketones Negative (Negative) mg/dL Urine Blood Negative (Negative) Urine Nitrite Negative (Negative) Ur Leukocyte Esterase Negative (Negative) Independent Interpretation I performed an independent interpretation of an: CT Scan Radiology Impression Discussion of test interpretation with radiology: I have reviewed the radiologist's reading. Radiologist Impression: FINDINGS: LUNG BASES: The visualized lung bases are unremarkable. LIVER, GALLBLADDER, AND BILIARY TREE: The liver is normal in size, shape, and attenuation. No focal hepatic lesion or biliary ductal dilatation is present. The gallbladder is unremarkable with no evidence of radiopaque gallstones, gallbladder wall thickening, or obvious pericholecystic inflammatory changes. PANCREAS: Unremarkable. SPLEEN: Unremarkable. ADRENAL GLANDS: Unremarkable. KIDNEYS AND URETERS: The kidneys are normal in size, shape, and attenuation. No hydronephrosis, hydroureter, or calculi seen. No perinephric stranding. BLADDER: Unremarkable. GASTROINTESTINAL TRACT: The small and large bowel are unremarkable. The appendix is unremarkable. ABDOMINAL WALL: No significant hernia is appreciated. LYMPH NODES: Normal. VASCULAR: Unremarkable. PELVIC VISCERA: Unremarkable. OSSEOUS STRUCTURES: Unremarkable. CT/CT abdomen pelvis w IV con IMPRESSION: No significant abnormality. Fleischner guidelines were followed. Medications Administered Discontinued Medications Generic Name Dose Route Start Last Admin Trade Name Freq PRN Reason Stop Dose Admin Iohexol 85 ml 02/14/24 03:35 02/14/24 03:35 Iohexol 350 Mg/Ml 100 Ml Infus..Btl IV 02/14/24 03:36 85 ml ONCE ONE Administration Ketorolac Tromethamine 30 mg 02/14/24 02:47 02/14/24 02:58 Ketorolac Tromethamine 30 Mg/Ml Vial IVPUSH 02/14/24 02:48 30 mg ONCE ONE Administration Ondansetron HCl 4 mg 02/14/24 02:48 02/14/24 02:59 Ondansetron Hcl 4 Mg/2 Ml Vial IVPUSH 02/14/24 02:49 4 mg ONCE ONE Administration Critical Care Time Critical Care Time Critical Care Time: Yes Total Critical Care Time: 45 Attestation: I have personally provided critical care time. Time includes review of lab data, radiology results, discussion with consultants, and monitoring for potential decompensation. Intervention performed as documented. Discharge Plan Discharge Clinical Impression: Abdominal pain Patient Disposition: Home, Self-Care Instructions: Abdominal Pain (ED) Additional Instructions: Please follow-up with your primary care physician tomorrow. If you have any worsening or new symptoms, please return to the emergency room or call 911 Prescriptions: New hyoscyamine sulfate 0.125 mg tablet 0.125 mg PO QID PRN (Reason: dyspepsia) Qty: 10 0RF No Action phenazopyridine [Pyridium] 200 mg tablet 200 mg PO TID PRN (Reason: pain) Qty: 14 0RF cefuroxime axetil 250 mg tablet 250 mg PO BID Qty: 14 0RF meclizine 25 mg tablet 25 mg PO TID PRN (Reason: dizziness) Qty: 14 0RF Print Language: Icelandic
[2024-02-14] MEDS: Ketorolac Tromethamine 30 MG/ML VIAL IVPUSH (02:58)
[2024-02-14] MEDS: ondansetron HCL 4 MG/2 ML VIAL IVPUSH (02:59)
[2024-02-14 03:11] LABS: HCG Quantitative < 2 mIU/mL
[2024-02-14 03:23] LABS: Appearance Urine Clear; Color Urine Yellow; Glucose Urine UA Negative (Negative); Leukocyte Esterase Urine Negative (Negative); Nitrite Urine Negative (Negative); PH 6.5 (5.0-9.0); Urine Blood Negative (Negative); Urine Ketones Negative (Negative); Urine Protein Negative (Neg-Trace)
[2024-02-14] MEDS: iohexoL 350 MG/ML 100 ML INFUS..BTL 85 ML IV (03:35)
[2024-02-14 04:00] VITALS: BP 118/74; PULSE 65; RESP 16; TEMP 36.7; O2SAT 99
[2024-02-14 05:43] VITALS: BP 120/75; PULSE 75; RESP 18; TEMP 36.7; O2SAT 99
== END 2024-02-14 05:48 | disposition home or self-care (01) ==
PROVIDERS: Emergency Provider Emergency Medicine
DX: R10.33 Periumbilical pain (principal)
CPT/HCPCS: 36415; 74177; 80053; 81003; 83690; 84702; 85025; 96374; 96375; 99284; J1885; J2405; Q9967

== ENCOUNTER 2024-03-15 22:03 | Emergency (ER) | payer OTHER, SELFPAY ==
--- NOTE | 2024-03-15 | ECG_ITS ---
Test Reason : DIZZINESS Blood Pressure : / mmHG Vent. Rate : 065 BPM Atrial Rate : 065 BPM P-R Int : 132 ms QRS Dur : 092 ms QT Int : 420 ms P-R-T Axes : 040 026 018 degrees QTc Int : 436 ms Normal sinus rhythm Normal ECG When compared with ECG of 01-JUN-2023 14:08, No significant change was found Referred By: Generic ED Physician Electronically Signed By:MARI ORR
[2024-03-15 22:07] VITALS: BP 144/77; PULSE 66; O2SAT 99
[2024-03-15 22:12] VITALS: BP 150/68; PULSE 62; RESP 20; TEMP 37; O2SAT 99; BMI 38.2
[2024-03-15 22:14] VITALS: BP 150/68; PULSE 60; RESP 17; TEMP 37; O2SAT 94
[2024-03-15 22:53] LABS: MANUAL DIFF FLAG NO
[2024-03-15 22:54] LABS: Basophils Percent Auto 0.5 % (0-2); Eosinophils Absolute Auto 0.2 X10*3/uL (0.0-0.4); Eosinophils Percent Auto 1.8 % (0-4); Hematocrit 35.7 % (37.0-47.0); Hemoglobin 12.1 g/dl (12.0-16.0); Imm Gran Abs Auto 0.09 X10*3/uL (0.00-0.03); Imm Gran Pct Auto 1.1 % (0.0-0.4); Lymphocytes Absolute Auto 1.7 X10*3/uL (1.2-4.9); Lymphocytes Percent Auto 20.8 % (20-40); Mean Corpuscular HGB Conc 33.9 g/dl (31.0-35.0); Mean Corpuscular Hemoglobin 29.2 pg (27.0-33.0); Mean Corpuscular Volume 86.2 fL (80.0-98.0); Mean Platelet Volume 10.1 fL (9.4-12.3); Monocytes Absolute Auto 0.7 X10*3/uL (0.1-1.2); Neutrophils Absolute Auto 5.4 x10*3/uL (2.0-8.3); Neutrophils Percent Auto 66.8 % (45-73); Platelet Count 216 X10*3/uL (160-400); Red Blood Count 4.14 X10*6/uL (4.20-5.50); Red Cell Distribution Width 14.3 % (11.0-16.0); White Blood Count 8.1 X10*3/uL (4.8-10.8)
[2024-03-15 23:07] LABS: Alanine Aminotransferase 13 U/L (0-31); Albumin Level 3.9 g/dL (3.5-5.0); Alkaline Phosphatase 73 U/L (39-117); Anion Gap 9 (12-20); Aspartate Amino Transferase 13 U/L (5-31); Bilirubin Direct < 0.2 mg/dL (0.0-0.5); Bilirubin Total 0.2 mg/dL (0.0-1.0); Blood Urea Nitrogen 14 mg/dL (9-16); Calcium 9.3 mg/dL (8.4-10.2); Carbon Dioxide 24 mmol/L (22-29); Chloride 109 mmol/L (96-108); Creatinine Clr Calc Pharmacy 119.6; Estimated Glomerular Filt Rate > 60; Glucose Random 86 mg/dL (60-115); Lipase 25 U/L (8-78); Potassium 3.9 mmol/L (3.3-5.1); Sodium 138 mmol/L (135-145); Total Protein 6.6 g/dL (6.5-8.0)
--- NOTE | 2024-03-16 00:42 | ED_ITS ---
HPI - General Adult General Chief complaint: General Medical Stated complaint: dizzy, n/v, right arm pain stated at 6pm Source: patient Mode of arrival: ambulatory Limitations: no limitations History of Present Illness ED Provider: mario ALBERTS narrative: Patient's history of anxiety your on 18:00 started feeling weak with pain in the right arm numb cramping checked her blood pressure was 160/111 fell not in the throat nausea could not breathe clinically patient has had a panic attack after arrival patient's blood pressure was stable 150/68 repeat blood pressure 121/70 patient feel relax at this time Related Data Previous Rx's ?Medication ?Instructions ?Recorded cefuroxime axetil 250 mg tablet 250 mg PO BID #14 tabs 11/21/21 phenazopyridine 200 mg tablet 200 mg PO TID PRN pain 6 doses #14 11/21/21 (Pyridium) tabs meclizine 25 mg tablet 25 mg PO TID PRN dizziness #14 tabs 06/01/23 hyoscyamine sulfate 0.125 mg tablet 0.125 mg PO QID PRN dyspepsia #10 02/14/24 tabs lorazepam 1 mg tablet (Ativan) 1 mg PO BEDTIME PRN anxiety/sleep 03/16/24 #10 tabs Allergies Allergy/AdvReac Type Severity Reaction Status Date / Time No Known Allergies Allergy Verified 03/15/24 22:38 Review of Systems 2 Review of Systems: Yes all other systems are reviewed and are negative [facility] Social History Social History Alcohol intake: never Advance Directives: No Advance Directives Information Provided: No Physical Exam ED Vital Signs: Vital Signs - 24 hr 03/15/24 22:12 03/15/24 22:14 03/16/24 00:58 Temperature 98.6 F 98.6 F 97.8 F Pulse Rate 62 60 62 Respiratory Rate 20 17 17 Blood Pressure 150/68 H 150/68 H 121/70 Pulse Oximetry 99 94 96 Oxygen Delivery Method Room Air Room Air Room Air BMI result Body Mass Index 38.2 Appearance: Alert. Oriented X3. No acute distress. Eyes: No pallor or icterus ENT: Pharynx normal. Oral Mucosa moist Neck: Normal inspection. Neck supple. CVS: Normal heart rate and rhythm. Pulses normal. Respiratory: No respiratory distress. Equal air entry bilateral, Abdomen: Soft and nontender. Bowel sounds are present, Skin: Skin warm and dry. Normal skin color. Normal skin turgor. Extremities: No lower extremity edema. No calf tenderness Neuro: Oriented X 3. No motor deficit. Medical Decision Making Differential Diagnosis Differential Diagnoses: The differential diagnosis associated with the presentation includes Anxiety/panic attacks/hypertension Lab Data MDM Lab Attestation statement: I reviewed the patient's lab results. 03/15/24 22:48 03/15/24 22:48 Labs: Lab Results 03/15/24 Range/Units 22:48 WBC 8.1 (4.8-10.8) X10*3/uL RBC 4.14 L (4.20-5.50) X10*6/uL Hgb 12.1 (12.0-16.0) g/dl Hct 35.7 L (37.0-47.0) % MCV 86.2 (80.0-98.0) fL MCH 29.2 (27.0-33.0) pg MCHC 33.9 (31.0-35.0) g/dl RDW 14.3 (11.0-16.0) % Plt Count 216 (160-400) X10*3/uL MPV 10.1 (9.4-12.3) fL Immature Gran % (Auto) 1.1 H (0.0-0.4) % Neut % (Auto) 66.8 (45-73) % Lymph % (Auto) 20.8 (20-40) % [place] % (Auto) 9.0 (2-11) % Eos % (Auto) 1.8 (0-4) % Baso % (Auto) 0.5 (0-2) % Lymph # (Auto) 1.7 (1.2-4.9) X10*3/uL [place] # (Auto) 0.7 (0.1-1.2) X10*3/uL Eos # (Auto) 0.2 (0.0-0.4) X10*3/uL Baso # (Auto) 0.0 (0.0-0.2) X10*3/uL Abs Immat Gran (auto) 0.09 H (0.00-0.03) X10*3/uL Absolute Neuts (auto) 5.4 (2.0-8.3) x10*3/uL Absolute Nucleated RBC 0.000 (0.0-0.012) X10*3/uL Nucleated RBC % (auto) 0.0 (0.0-0.2) /100WBC Sodium 138 (135-145) mmol/L Potassium 3.9 (3.3-5.1) mmol/L Chloride 109 H (96-108) mmol/L Carbon Dioxide 24 (22-29) mmol/L Anion Gap 9 L (12-20) BUN 14 (9-16) mg/dL Creatinine 0.73 (0.5-1.4) mg/dL Estim Creat Clear Calc 119.6 Estimated GFR > 60 Random Glucose 86 (60-115) mg/dL Calcium 9.3 (8.4-10.2) mg/dL Total Bilirubin 0.2 (0.0-1.0) mg/dL Direct Bilirubin < 0.2 (0.0-0.5) mg/dL AST 13 (5-31) U/L ALT 13 (0-31) U/L Alkaline Phosphatase 73 (39-117) U/L Total Protein 6.6 (6.5-8.0) g/dL Albumin 3.9 (3.5-5.0) g/dL Lipase 25 (8-78) U/L Independent Interpretation I performed an independent interpretation of an: EKG Interpretation: Normal sinus rhythm heart rate 65 beats per minute normal interval normal axis no acute ST T wave changes no acute ischemia Discharge Plan Discharge Clinical Impression: Panic attack Patient Disposition: Home, Self-Care Instructions: Panic Attack (ED) Additional Instructions: Take medication as prescribed to sleep/for anxiety Likely you had a panic attack Follow with your PCP if any concerns Prescriptions: New lorazepam [Ativan] 1 mg tablet 1 mg PO BEDTIME PRN (Reason: anxiety/sleep) Qty: 10 0RF No Action phenazopyridine [Pyridium] 200 mg tablet 200 mg PO TID PRN (Reason: pain) Qty: 14 0RF cefuroxime axetil 250 mg tablet 250 mg PO BID Qty: 14 0RF meclizine 25 mg tablet 25 mg PO TID PRN (Reason: dizziness) Qty: 14 0RF hyoscyamine sulfate 0.125 mg tablet 0.125 mg PO QID PRN (Reason: dyspepsia) Qty: 10 0RF Print Language: Emirati
[2024-03-16 00:58] VITALS: BP 121/70; PULSE 62; RESP 17; TEMP 36.6; O2SAT 96
[2024-03-16 01:50] VITALS: BP 123/75; PULSE 69; RESP 18; TEMP 36.3; O2SAT 99
== END 2024-03-16 01:59 | disposition home or self-care (01) ==
PROVIDERS: Emergency Provider Internal Medicine
DX: F41.0 Panic disorder [episodic paroxysmal anxiety] (principal); Z79.899 Other long term (current) drug therapy
CPT/HCPCS: 36415; 80048; 80076; 83690; 85025; 93005; 99284

== ENCOUNTER 2024-05-02 09:45 | Emergency (ER) | payer OTHER, SELFPAY ==
--- NOTE | ~2024-05-02 | CT_ITS ---
EXAMINATION: CT head/brain wo IV con CLINICAL INFORMATION: headache x5 days worse w/ bending over COMPARISON: CT head 03/20/2023 TECHNIQUE: Contiguous axial imaging was performed from the skull base to vertex without intravenous contrast. This CT examination was performed using dose optimization techniques as appropriate, variously including the following: * Automated exposure control * Adjustment of mA and/or kV according to patient size (this includes techniques or standardized protocols for targeted exams where dose is matched to indication/reason for exam; i.e. extremities or head) * Use of iterative reconstruction technique DLP: 609 mGy-cm. FINDINGS: There is no evidence of acute intracranial hemorrhage or territorial infarction. Melo to white matter differentiation is well preserved. No abnormal mass effect or midline shift is seen. No extra-axial fluid collections are identified. No hydrocephalus. No significant volume loss. There is no abnormal attenuation within the brain parenchyma. The cerebellar tonsils are well positioned. No acute osseous or soft tissue abnormality. Visualized portions of the orbits are unremarkable. The mastoid air cells and visualized portions of the paranasal sinuses are well aerated. CT/CT head/brain wo IV con IMPRESSION: No acute intracranial pathology. Electronically signed by: Sade Greene DO 05/02/2024 12:26 PM [facility]
[2024-05-02 09:54] VITALS: BP 131/84; PULSE 80; RESP 19; TEMP 36.6; O2SAT 98; BMI 41.8
--- NOTE | 2024-05-02 10:21 | ED.HA ---
HPI - Headache General Chief Complaint: Headache Stated Complaint: Headache Time Seen by Provider: 05/02/24 10:14 Source: patient and RN notes reviewed Mode of arrival: ambulatory Limitations: no limitations History of Present Illness ED Provider: MORRIS TUCKER PA-C HPI Narrative: 38 year old female with no significant pmhx presents to the ED today for evaluation of headache x5 days. Reports the pain in her head moves however is located primarily to right side and posterior head. Worse with bending over. Admits to associated phonophobia. She does not recall what she was doing at onset of symptoms. Denies history of similar. She has been taking tylenol and motrin at home without relief. Last dose 4 hours [employer]. No known sick contacts. Denies fever, chills, vision changes, dizziness, photophobia, sore throat, neck pain, chest pain, palpitations, SOB, N/V. Related Data Previous Rx's ?Medication ?Instructions ?Recorded cefuroxime axetil 250 mg tablet 250 mg PO BID #14 tabs 11/21/21 phenazopyridine 200 mg tablet 200 mg PO TID PRN pain 6 doses #14 11/21/21 (Pyridium) tabs meclizine 25 mg tablet 25 mg PO TID PRN dizziness #14 tabs 06/01/23 hyoscyamine sulfate 0.125 mg tablet 0.125 mg PO QID PRN dyspepsia #10 02/14/24 tabs lorazepam 1 mg tablet (Ativan) 1 mg PO BEDTIME PRN anxiety/sleep 03/16/24 #10 tabs ggjbbbu-poocadryeoptf-ujhcyhbn 250 1 tab PO Q6H PRN pain (scale score 05/02/24 mg-250 mg-65 mg tablet (Excedrin 4-6) #7 tabs Migraine) diphenhydramine HCl 50 mg tablet 50 mg PO Q8H PRN headache #20 tabs 05/02/24 (Benadryl Allergy) metoclopramide HCl 10 mg tablet 10 mg PO Q6H PRN headache #10 tabs 05/02/24 (Reglan) Allergies Allergy/AdvReac Type Severity Reaction Status Date / Time No Known Allergies Allergy Verified 05/02/24 09:55 Review of Systems Review of Systems: Constitutional: No fever, chills, fatigue, night sweats, weight changes ENT/Mouth: No ear pain, hearing loss, nasal congestion, sinus pain, rhinorrhea, sore throat, +phonophobia Eyes: No eye pain, swelling, redness, vision changes, discharge Cardio: No chest pain, palpitations, TREVIZO, orthopnea, peripheral edema Pulm: No SOB, cough, sputum, wheezing, dyspnea, hemoptysis GI: No nausea, vomiting, hematemesis, abdominal pain, diarrhea, constipation, hematochezia, melena : No irregular bleeding, dysuria, frequency, urgency, hesitancy, hematuria, flank pain, urinary flow changes, urinary incontinence or retention MSK: No back pain, neck pain, joint pain, myalgias Skin: No lesions, rashes Neuro: No weakness, numbness, paresthesias, LOC, dizziness, +headache Psych: No anxiety/panic, depression, SI/HI, AH/VH All other systems reviewed and are negative. [facility] Past Medical History Attestation statement: The following information was validated with the patient. Source: old records reviewed and nursing notes reviewed Social History Social History Alcohol intake: never Smoked in Last 30 Days: No Use of substances other than those prescribed or required for medical reasons: No Advance Directives: No Advance Directives Information Provided: Yes Do you have a plan to hurt others: No Plan Patient : No Physical Exam Vital Signs: Vital Signs: Last Vital Signs Temp 98.1 F 05/02/24 10:30 Pulse 74 05/02/24 10:30 Resp 16 05/02/24 10:30 BP 143/90 H 05/02/24 10:30 Pulse Ox 100 05/02/24 10:30 O2 Del Method Room Air 05/02/24 10:30 BMI result Body Mass Index 41.8 Hypertensive, vitals otherwise WNL General: Well appearing, in no acute distress. sitting on exam bed with lights dimmed, eyes closed. Skin: Warm, dry, intact. No rashes or lesions. Head: Normocephalic, atraumatic. No scalp tenderness, no palpable temporal artery. EENT: Hearing is intact b/l. Conjunctiva clear. PERRLA. EOM intact. Moist mucous membranes.? Neck: Supple without LAD Cardiac: Chest wall symmetric. RRR Lungs: Normal respiratory effort without accessory muscle use. CTA bilaterally. No rales, rhonchi, or wheezes.? Back: No midline spinous or paraspinal tenderness. No step off deformity. Ext: Upper and lower extremities atraumatic, without tenderness, deformity, swelling or erythema. Full ROM throughout. Neuro: AOx3. Normal speech. Strength 5/5 intact throughout. No saddle anesthesia. Sensation intact to light touch. normal finger to nose, heel to mir. NV intact distally. Ambulating with steady gait. Psych: Appropriate mood and affect. Responds appropriately to questions. Course Course Course Narrative: 1250 -- on re-evaluation, patient reports significant improvement in headache following Toradol, Benadryl, Reglan. Reports headache currently 06/25. CBC without leukocytosis or left shift. No anemia. H&H stable. Chemistry without acute electrolyte abnormality requiring intervention. No CANDY. Normal liver function. Beta quant undetectable. She tested negative for COVID, flu, RSV. CT head unremarkable. I did discuss all workup results with patient. Concern for General headache. Will send Benadryl, Reglan and Excedrin migraine to pharmacy for treatment. Patient has remained stable throughout ED visit today. Discussed worrisome signs and symptoms and when to return to the ED. All questions answered at this time. Patient is agreeable with disposition and stable for discharge. Medications Administered Discontinued Medications Generic Name Dose Route Start Last Admin Trade Name Russellq PRN Reason Stop Dose Admin Diphenhydramine HCl 50 mg 05/02/24 10:56 05/02/24 11:03 Diphenhydramine Hcl 50 Mg/Ml Vial IVPUSH 05/02/24 10:57 50 mg ONCE ONE Administration Ketorolac Tromethamine 15 mg 05/02/24 10:56 05/02/24 11:03 Ketorolac Tromethamine 15 Mg/Ml Vial IVPUSH 05/02/24 10:57 15 mg ONCE ONE Administration Metoclopramide HCl 10 mg 05/02/24 10:56 05/02/24 11:03 Metoclopramide Hcl 10 Mg/2 Ml Vial IVPUSH 05/02/24 10:57 10 mg ONCE ONE Administration Medical Decision Making Medical Decision Making MDM Narrative: 38 year old female with no significant pmhx presents to the ED today for evaluation of headache x5 days. Vital signs stable. she is nontoxic appearing and in NAD. lying comfortably on exam bed with lights dimmed. her exam is nonfocal. cerebellum intact. perrla. no photophobia. head is normocephalic atraumatic. Differential diagnosis includes anemia, electrolyte abnormality, viral syndrome, dehydration, migraine vs tension type headache. No headache red flags. Neurologic exam without evidence of meningismus. No focal neurologic findings. Presentation not consistent with acute intracranial bleed including SAH (lack of risk factors, headache history). Presentation not consistent with acute [employer] infection including meningitis or brain abscess. Temporal arteritis unlikely, as is acute angle closure glaucoma given history and physical findings. Presentation not consistent with other acute, emergent causes of headache at this time. Plan: pain medication, labs, viral serology, CT head, and re-evaluation. Differential Diagnosis Differential Diagnoses: The differential diagnosis associated with the presentation includes As above Admission/Observation Not indicated Lab Data MDM Lab Attestation statement: I reviewed the patient's lab results. As above 05/02/24 10:53 05/02/24 10:53 Labs: Lab Results 05/02/24 Range/Units 10:53 WBC 6.7 (4.8-10.8) X10*3/uL RBC 4.68 (4.20-5.50) X10*6/uL Hgb 13.4 (12.0-16.0) g/dl Hct 39.9 (37.0-47.0) % MCV 85.3 (80.0-98.0) fL MCH 28.6 (27.0-33.0) pg MCHC 33.6 (31.0-35.0) g/dl RDW 14.5 (11.0-16.0) % Plt Count 247 (160-400) X10*3/uL MPV 10.3 (9.4-12.3) fL Immature Gran % (Auto) 0.6 H (0.0-0.4) % Neut % (Auto) 74.5 H (45-73) % Lymph % (Auto) 16.7 L (20-40) % [place] % (Auto) 6.6 (2-11) % Eos % (Auto) 1.2 (0-4) % Baso % (Auto) 0.4 (0-2) % Lymph # (Auto) 1.1 L (1.2-4.9) X10*3/uL [place] # (Auto) 0.4 (0.1-1.2) X10*3/uL Eos # (Auto) 0.1 (0.0-0.4) X10*3/uL Baso # (Auto) 0.0 (0.0-0.2) X10*3/uL Abs Immat Gran (auto) 0.04 H (0.00-0.03) X10*3/uL Absolute Neuts (auto) 5.0 (2.0-8.3) x10*3/uL Absolute Nucleated RBC 0.000 (0.0-0.012) X10*3/uL Nucleated RBC % (auto) 0.0 (0.0-0.2) /100WBC Sodium 141 (135-145) mmol/L Potassium 3.8 (3.3-5.1) mmol/L Chloride 109 H (96-108) mmol/L Carbon Dioxide 25 (22-29) mmol/L Anion Gap 11 L (12-20) BUN 17 H (9-16) mg/dL Creatinine 0.64 (0.5-1.4) mg/dL Estim Creat Clear Calc 123.1 Estimated GFR > 60 Random Glucose 90 (60-115) mg/dL Calcium 9.1 (8.4-10.2) mg/dL Magnesium 2.0 (1.6-2.6) mg/dL Total Bilirubin 0.5 (0.0-1.0) mg/dL AST 23 (5-31) U/L ALT 18 (0-31) U/L Alkaline Phosphatase 75 (39-117) U/L Total Protein 6.8 (6.5-8.0) g/dL Albumin 4.1 (3.5-5.0) g/dL Beta HCG, Quant < 2 mIU/mL Influenza Type A (PCR) NEGATIVE (Negative) Influenza Type B (PCR) NEGATIVE (Negative) RSV RNA Qual (PCR) NEGATIVE (Negative) SARS-CoV-2 RNA (RT-PCR) NEGATIVE (Negative) Independent Interpretation I performed an independent interpretation of an: CT Scan Interpretation: ct head/ brain without bleed or mass Radiology Impression Discussion of test interpretation with radiology: I have reviewed the radiologist's reading. Radiologist Impression: EXAMINATION: CT head/brain wo IV con CLINICAL INFORMATION: headache x5 days worse w/ bending over COMPARISON: CT head 03/20/2023 TECHNIQUE: Contiguous axial imaging was performed from the skull base to vertex without intravenous contrast. This CT examination was performed using dose optimization techniques as appropriate, variously including the following: * Automated exposure control * Adjustment of mA and/or kV according to patient size (this includes techniques or standardized protocols for targeted exams where dose is matched to indication/reason for exam; i.e. extremities or head) * Use of iterative reconstruction technique DLP: 609 mGy-cm. FINDINGS: There is no evidence of acute intracranial hemorrhage or territorial infarction. Melo to white matter differentiation is well preserved. No abnormal mass effect or midline shift is seen. No extra-axial fluid collections are identified. No hydrocephalus. No significant volume loss. There is no abnormal attenuation within the brain parenchyma. The cerebellar tonsils are well positioned. No acute osseous or soft tissue abnormality. Visualized portions of the orbits are unremarkable. The mastoid air cells and visualized portions of the paranasal sinuses are well aerated. CT/CT head/brain wo IV con IMPRESSION: No acute intracranial pathology. Electronically signed by: Sade Greene DO 05/02/2024 12:26 PM [facility] Independent Historian Clinical information obtained from an independent historian. History obtained from or confirmed by: Spouse () External Record Review External record reviewed: Inpatient record Prescription Management I considered prescription management with: Other (Reglan, Benadryl, Excedrin migraine) Social Determinants Patient?s care significantly limited by Social Determinants of Health including: Other Social Determinant of Health Critical Care Time Critical Care Time Critical Care Time: No Discharge Plan Discharge Clinical Impression: Headache Patient Disposition: Home, Self-Care Instructions: General Headache (ED) Additional Instructions: You have been evaluated in the Emergency Department today for headache. Your evaluation did not show evidence of medical conditions requiring emergent intervention at this time, and your pain improved with medication in the ED. Sometimes it is difficult to explain the cause of headache but the negative workup today is reassuring (blood work, viral swabs, CT head) I want you to take the following 3 medications together every 6 hours as needed for headache, nausea or vomiting. ? - Reglan 10 mg - Benadryl 50 mg - Excedrin migraine After you take these medications, lie down in a dark quiet room and try to fall asleep. ?These medications will make you sleepy, do not drive or work after taking these medications. Please follow up with your primary care physician this week. Return to the Emergency Department if you experience worsening or uncontrolled pain, vision changes, recurrent vomiting, difficulty with normal activities, abnormal behavior, difficulty walking, numbness, weakness, or any other concerning symptoms. Prescriptions: New Benadryl Allergy 50 mg tablet 50 mg PO Q8H PRN (Reason: headache) Qty: 20 0RF metoclopramide HCl [Reglan] 10 mg tablet 10 mg PO Q6H PRN (Reason: headache) Qty: 10 0RF Excedrin Migraine 250-250-65 mg tablet 1 tab PO Q6H PRN (Reason: pain (scale score 4-6)) Qty: 7 0RF No Action phenazopyridine [Pyridium] 200 mg tablet 200 mg PO TID PRN (Reason: pain) Qty: 14 0RF cefuroxime axetil 250 mg tablet 250 mg PO BID Qty: 14 0RF meclizine 25 mg tablet 25 mg PO TID PRN (Reason: dizziness) Qty: 14 0RF hyoscyamine sulfate 0.125 mg tablet 0.125 mg PO QID PRN (Reason: dyspepsia) Qty: 10 0RF lorazepam [Ativan] 1 mg tablet 1 mg PO BEDTIME PRN (Reason: anxiety/sleep) Qty: 10 0RF Ref[place]: [facility] [facility] [place]] [facility] [place] [facility] [Provider Group] [facility] [place] [facility] [[place] Group] Print Language: Mohawk
[2024-05-02 10:30] VITALS: BP 143/90; PULSE 74; RESP 16; TEMP 36.7; O2SAT 100
--- NOTE | 2024-05-02 10:35 | PC.NURSE ---
Pt comes to ED today for c/o severe SHINE x4 days. Report this is unlike and other SHINE she has had. States she tried using Tylenol/ibuprofen for relief with no success. C/o pain is 10/10 and constant with sensitivity to sounds. Pt denies n/v and changes in vision. A&Ox3, VSS, afebrile. Pt denies any changes to PO intake; no changes bowel/urine patterns
[2024-05-02 10:57] LABS: MANUAL DIFF FLAG NO
[2024-05-02 10:58] LABS: Basophils Percent Auto 0.4 % (0-2); Eosinophils Absolute Auto 0.1 X10*3/uL (0.0-0.4); Eosinophils Percent Auto 1.2 % (0-4); Hematocrit 39.9 % (37.0-47.0); Hemoglobin 13.4 g/dl (12.0-16.0); Imm Gran Abs Auto 0.04 X10*3/uL (0.00-0.03); Imm Gran Pct Auto 0.6 % (0.0-0.4); Lymphocytes Absolute Auto 1.1 X10*3/uL (1.2-4.9); Lymphocytes Percent Auto 16.7 % (20-40); Mean Corpuscular HGB Conc 33.6 g/dl (31.0-35.0); Mean Corpuscular Hemoglobin 28.6 pg (27.0-33.0); Mean Corpuscular Volume 85.3 fL (80.0-98.0); Mean Platelet Volume 10.3 fL (9.4-12.3); Monocytes Absolute Auto 0.4 X10*3/uL (0.1-1.2); Monocytes Percent Auto 6.6 % (2-11); Neutrophils Percent Auto 74.5 % (45-73); Platelet Count 247 X10*3/uL (160-400); Red Blood Count 4.68 X10*6/uL (4.20-5.50); Red Cell Distribution Width 14.5 % (11.0-16.0); White Blood Count 6.7 X10*3/uL (4.8-10.8)
[2024-05-02] MEDS: Metoclopramide HCl 10 MG/2 ML VIAL IVPUSH (11:03)
[2024-05-02] MEDS: Ketorolac Tromethamine 15 MG/ML VIAL IVPUSH (11:03)
[2024-05-02] MEDS: diphenhydrAMINE HCL 50 MG/ML VIAL IVPUSH (11:03)
[2024-05-02 11:18] LABS: Alanine Aminotransferase 18 U/L (0-31); Albumin Level 4.1 g/dL (3.5-5.0); Alkaline Phosphatase 75 U/L (39-117); Anion Gap 11 (12-20); Aspartate Amino Transferase 23 U/L (5-31); Bilirubin Total 0.5 mg/dL (0.0-1.0); Blood Urea Nitrogen 17 mg/dL (9-16); Calcium 9.1 mg/dL (8.4-10.2); Carbon Dioxide 25 mmol/L (22-29); Chloride 109 mmol/L (96-108); Creatinine Clr Calc Pharmacy 123.1; Estimated Glomerular Filt Rate > 60; Glucose Random 90 mg/dL (60-115); Potassium 3.8 mmol/L (3.3-5.1); Sodium 141 mmol/L (135-145); Total Protein 6.8 g/dL (6.5-8.0)
[2024-05-02 11:19] LABS: HCG Quantitative < 2 mIU/mL
[2024-05-02 11:43] LABS: Influenza A PCR NEGATIVE (Negative); Influenza B PCR NEGATIVE (Negative); Resp Syncy Virus RNA Qual PCR NEGATIVE (Negative); SARS COV2 PCR INHOUSE NEGATIVE (Negative)
[2024-05-02 13:05] VITALS: BP 109/73; PULSE 65; RESP 16; TEMP 36.6; O2SAT 98
[2024-05-02 13:10] VITALS: BP 109/73; PULSE 65; RESP 16; TEMP 36.6; O2SAT 98
== END 2024-05-02 13:19 | disposition home or self-care (01) ==
PROVIDERS: Physician Assistant Medical; Emergency Provider Emergency Medicine
DX: R51.9 Headache, unspecified (principal); H53.141 Visual discomfort, right eye; Z79.899 Other long term (current) drug therapy; Z03.818 Encounter for observation for suspected exposure to other biological agents ruled out
CPT/HCPCS: 0241U; 70450; 80053; 83735; 84702; 85025; 96374; 96375; 99284; J1200; J1885; J2765

== ENCOUNTER 2024-05-28 11:07 | Emergency (ER) | payer OTHER, SELFPAY ==
[2024-05-28 11:51] VITALS: BP 157/90; PULSE 78; RESP 18; TEMP 36.5; O2SAT 98; BMI 36.6
--- NOTE | 2024-05-28 11:54 | ED_ITS ---
HPI - General Adult General Chief complaint: General Medical Stated complaint: back pain Time Seen by Provider: 05/28/24 14:49 Source: patient Mode of arrival: ambulatory Limitations: no limitations History of Present Illness ED Provider: MORRIS TUCKER PA-C HPI narrative: 38 year old female presents to the ED today for evaluation of rectal pain x2 weeks. Patient reports pain began after straining to pass a bowel movement 2 weeks ago. She reports hesitancy passing bowel movements as it feels as though she is passing glass. Denies any drainage from the area. Denies bleeding. She states that her boyfriend evaluated the area at home and noticed a cut with little bumps . She has not been medically evaluated for this over the last 2 weeks. No history of similar. Over the last 2 weeks, she reports intermittent constipation with straining. Normal BM yesterday. Denies melena, hematochezia, abd pain, N/V. Patient was also noted to report chest pain, myalgias, sore throat and elevated blood pressure while in the ED waiting room. Upon further questioning, patient reports intermittent elevated blood pressures at home over the last few months. She mentioned this to her primary care provider approximately 3 months ago. She was told that there was no intervention warranted at that time. She does not recall the exact numbers her blood pressure monitor has been reading at home. She reports myalgias and cough x2 months although improving. She denies any chest pain, states that she only began to have chest discomfort on coughing. Denies any discomfort at present. Denies fever/ chills. Denies sick contacts. Related Data Previous Rx's ?Medication ?Instructions ?Recorded cefuroxime axetil 250 mg tablet 250 mg PO BID #14 tabs 11/21/21 phenazopyridine 200 mg tablet 200 mg PO TID PRN pain 6 doses #14 11/21/21 (Pyridium) tabs meclizine 25 mg tablet 25 mg PO TID PRN dizziness #14 tabs 06/01/23 hyoscyamine sulfate 0.125 mg tablet 0.125 mg PO QID PRN dyspepsia #10 02/14/24 tabs lorazepam 1 mg tablet (Ativan) 1 mg PO BEDTIME PRN anxiety/sleep 03/16/24 #10 tabs ataiiuu-pyiaywqwexjni-atnevunv 250 1 tab PO Q6H PRN pain (scale score 11/17/24 mg-250 mg-65 mg tablet (Excedrin 4-6) #7 tabs Migraine) diphenhydramine HCl 50 mg tablet 50 mg PO Q8H PRN headache #20 tabs 05/02/24 (Benadryl Allergy) metoclopramide HCl 10 mg tablet 10 mg PO Q6H PRN headache #10 tabs 05/02/24 (Reglan) docusate sodium 100 mg capsule 100 mg PO BID PRN constipation #14 05/28/24 (Colace) caps nitroglycerin 0.4 % (w/w) rectal 1 inch [place] BID #30 grams 05/28/24 ointment polyethylene glycol 3350 17 17 g PO DAILY #119 grams 05/28/24 gram/dose oral powder (Miralax) Allergies Allergy/AdvReac Type Severity Reaction Status Date / Time No Known Allergies Allergy Verified 05/28/24 11:55 Review of Systems Review of Systems: Yes all other systems are reviewed and are negative [facility] Past Medical History Attestation statement: The following information was validated with the patient. Source: old records reviewed and nursing notes reviewed Social History Social History Alcohol intake: never Advance Directives: No Advance Directives Information Provided: No Do you have a plan to hurt others: No Plan Physical Exam ED Vital Signs: Vital Signs - 24 hr 05/28/24 11:51 05/28/24 12:57 05/28/24 15:41 Temperature 97.7 F 97.7 F Pulse Rate 78 69 Respiratory Rate 18 18 Blood Pressure 157/90 H 155/84 H 146/79 H Pulse Oximetry 98 98 Oxygen Delivery Method Room Air Room Air BMI result Body Mass Index 36.6 hypertensive, vitals otherwise wnl General: Well appearing, in no acute distress. Skin: Warm, dry, intact. No rashes or lesions. Head: Normocephalic, atraumatic. EENT: Hearing is intact b/l. Conjunctiva clear. PERRLA. EOM intact. Moist mucous membranes.? Cardiac: Chest wall symmetric. RRR Lungs: Normal respiratory effort without accessory muscle use. CTA bilaterally Abdomen: Soft, non-tender, non-distended. No rebound tenderness or guarding. Positive BS x4. + Rectal exam performed with [employer] brake technician present in room to clinic scheduler. mathematical sciences professor at bedside to help interpret exam. Normal rectal sphincter tone. No external masses or lesions. There is a small internal fissure noted to 4 oclock, no active bleeding, ttp. no obvious fistula. no drainage. Palpable soft stool in rectal vault. Stool is normal in appearance. Guac not performed. Back: No midline spinous or paraspinal tenderness. No step off deformity. Ext: Upper and lower extremities atraumatic, without tenderness, deformity, swelling or erythema Neuro: AOx3. Normal speech. Ambulating with steady gait. Course Course Course Narrative: RME, this is a rapid medical exam performed by Constantino Mdidleton please refer to primary provider for complete H&P- 38-year-old female presents for evaluation of a painful lump near her rectum. Symptoms started about 2 weeks ago. She did report a history of constipation prior to the onset. She has pain with bowel movements and reports some drainage from the area. Will defer evaluation until direct visualization can be performed. The patient is well-appearing and vital signs are stable, she is afebrile 12:56pm Patient approached the triage area complaining of chest pain, body aches, sore throat and elevated hypertension. I ordered EKG, viral swabs and strep throat swab Reevaluation(s) Reevaluation #1: Patient tested negative for strep, COVID, RSV, flu. EKG showing normal sinus rhythm with a rate of 64 beats per minute, QT 422, QTC 435, no acute ischemic ch anges or ST elevations. > her physical exam is consistent with an anal fissure. Discussed exam findings with her. She does report intermittent constipation and hesitancy with passing bowel movements due to the pain. Will send MiraLax and Colace to pharmacy along with nitroglycerin cream. Educated on use. GI referral provided. Advised to follow up with them. > EKG was ordered from triage due to patient endorsing chest pain. On my evaluation, she denies any chest pain, more discomfort on coughing. Her lungs sound clear. Her vitals are stable. She is afebrile. I have extremely low suspicion for pneumonia do not feel as though chest x-ray is warranted at this time. Presentation is not consistent with ACS. Regarding blood pressure, her blood pressure was mildly elevated in the ED today. Advised her to keep a log of her blood pressure is at home with PCP follow up. Patient has remained stable throughout ED visit today. Discussed worrisome signs and symptoms and when to return to the ED. All questions answered at this time. Patient is agreeable with disposition and stable for discharge. Medical Decision Making Medical Decision Making [facility] Narrative: 38 year old female presents to the ED today for evaluation of rectal pain x2 weeks. Patient slightly hypertensive to 146/79. Vitals are otherwise WNL. She is nontoxic-appearing and in no acute distress. Sitting comfortably on the exam bed. Rectal exam performed with [employer] automotive brake technician present in room to clinic scheduler. mathematical sciences professor at bedside to help interpret exam. Normal rectal sphincter tone. No external masses or lesions. There is a small internal fissure noted to 4 oclock, no active bleeding, ttp. no obvious fistula. no drainage. Palpable soft stool in rectal vault. Stool is normal in appearance. Guac not performed. Differential diagnosis includes internal versus external hemorrhoid, fissure, fistula Differential Diagnosis Differential Diagnoses: The differential diagnosis associated with the presentation includes as above. Admission/Observation Not indicated Lab Data [facility] Lab Attestation statement: I reviewed the patient's lab results. as above. Labs: Lab Results 05/28/24 Range/Units 13:15 Influenza Type A (PCR) NEGATIVE (Negative) Influenza Type B (PCR) NEGATIVE (Negative) RSV RNA Qual (PCR) NEGATIVE (Negative) SARS-CoV-2 RNA (RT-PCR) NEGATIVE (Negative) S. pyogenes GrpA FEROZ Negative (Negative) Independent Interpretation I performed an independent interpretation of an: EKG Interpretation: EKG showing normal sinus rhythm with a rate of 60 beats per minute, QT 422, QTC 435, no acute ischemic changes or ST elevations. Independent Historian Clinical information obtained from an independent historian. History obtained from or confirmed by: Other (Boyfriend) External Record Review External record reviewed: Inpatient record Social Determinants Patient?s care significantly limited by Social Determinants of Health including: Other Social Determinant of Health Critical Care Time Critical Care Time Critical Care Time: No Discharge Plan Discharge Clinical Impression: Anal fissure Patient Disposition: Home, Self-Care Instructions: Anal Fissure (ED) Additional Instructions: Avoid constipation/straining Miralax is a laxative that has been sent to your pharmacy. Take this as prescribed. Colace is a stool softener that has been sent to your pharmacy. Take this as prescribed. Apply nitroglycerin ointment twice daily. Follow-up with gunner mate if symptoms do not improve. A referral have been provided to you. Return to the ED for worsening symptoms. rx: nitroglycerin 0.4% ointment (1 in FL BID) Prescriptions: New nitroglycerin 0.4 % (w/w) ointment 1 inch FL BID Qty: 30 0RF docusate sodium [Colace] 100 mg capsule 100 mg PO BID PRN (Reason: constipation) Qty: 14 0RF polyethylene glycol 3350 [Miralax] 17 gram/dose powder 17 g PO DAILY Qty: 119 0RF No Action phenazopyridine [Pyridium] 200 mg tablet 200 mg PO TID PRN (Reason: pain) Qty: 14 0RF cefuroxime axetil 250 mg tablet 250 mg PO BID Qty: 14 0RF meclizine 25 mg tablet 25 mg PO TID PRN (Reason: dizziness) Qty: 14 0RF hyoscyamine sulfate 0.125 mg tablet 0.125 mg PO QID PRN (Reason: dyspepsia) Qty: 10 0RF Benadryl Allergy 50 mg tablet 50 mg PO Q8H PRN (Reason: headache) Qty: 20 0RF metoclopramide HCl [Reglan] 10 mg tablet 10 mg PO Q6H PRN (Reason: headache) Qty: 10 0RF Excedrin Migraine 250-250-65 mg tablet 1 tab PO Q6H PRN (Reason: pain (scale score 4-6)) Qty: 7 0RF lorazepam [Ativan] 1 mg tablet 1 mg PO BEDTIME PRN (Reason: anxiety/sleep) Qty: 10 0RF Referrals: [facility] [Provider Group] - 5 days (anal fissure) Interventions: ED Discharge Assessment Last Done: 05/28/24 15:41 Discharge Date/Time: 05/28/24 15:42 Print Language: Greek
--- NOTE | 2024-05-28 12:55 | ECG_ITS ---
Test Reason : PAIN Blood Pressure : / mmHG Vent. Rate : 064 BPM Atrial Rate : 064 BPM P-R Int : 132 ms QRS Dur : 086 ms QT Int : 422 ms P-R-T Axes : 033 026 016 degrees QTc Int : 435 ms Normal sinus rhythm Normal ECG When compared with ECG of 15-MAR-2024 22:17, No significant change was found Referred By: Marlon Middleton Electronically Signed By:NATO DE LA O MD
[2024-05-28 12:57] VITALS: BP 155/84
[2024-05-28 13:31] LABS: IDNOW Serial# 08D9AD1C; Strep A Nucleic Acid Negative (Negative)
[2024-05-28 14:05] LABS: Influenza A PCR NEGATIVE (Negative); Influenza B PCR NEGATIVE (Negative); Resp Syncy Virus RNA Qual PCR NEGATIVE (Negative); SARS COV2 PCR INHOUSE NEGATIVE (Negative)
[2024-05-28 15:41] VITALS: BP 146/79; PULSE 69; RESP 18; TEMP 36.5; O2SAT 98
== END 2024-05-28 15:42 | disposition home or self-care (01) ==
PROVIDERS: Physician Assistant; Emergency Provider Student in an Organized Health Care Education/Training Program
DX: K60.2 Anal fissure, unspecified (principal); K62.89 Other specified diseases of anus and rectum; R07.9 Chest pain, unspecified; M79.10 Myalgia, unspecified site; J02.9 Acute pharyngitis, unspecified; I10 Essential (primary) hypertension; Z03.818 Encounter for observation for suspected exposure to other biological agents ruled out
CPT/HCPCS: 0241U; 87651; 93005; 99283; 99284

== ENCOUNTER → 2024-05-28 12:55 | Outpatient (BNV) | payer OTHER, SELFPAY | PROVIDERS: Emergency Provider Student in an Organized Health Care Education/Training Program; Visit Provider Internal Medicine Cardiovascular Disease | DX: K60.2 Anal fissure, unspecified (principal); M54.9 Dorsalgia, unspecified | CPT/HCPCS: 93010 ==

== ENCOUNTER 2024-10-01 00:08 | Emergency (ER) | payer OTHER, SELFPAY ==
--- NOTE | 2024-10-01 | ECG_ITS ---
Test Reason : DIZZINESS Blood Pressure : */* mmHG Vent. Rate : 64 BPM Atrial Rate : 64 BPM P-R Int : 138 ms QRS Dur : 82 ms QT Int : 420 ms P-R-T Axes : 29 12 8 degrees QTcB Int : 433 ms Normal sinus rhythm Normal ECG When compared with ECG of 28-May-2024 14:31, No significant change was found Referred By: Generic ED Physician Electronically Signed By: NATO DE LA O MD
[2024-10-01 00:17] VITALS: BP 149/90; PULSE 65; RESP 16; TEMP 37.3; O2SAT 97; BMI 37.8
[2024-10-01 01:00] LABS: MANUAL DIFF FLAG NO
[2024-10-01 01:03] LABS: Basophils Absolute Auto 0.1 X10*3/uL (0.0-0.2); Basophils Percent Auto 0.9 % (0-2); Eosinophils Absolute Auto 0.2 X10*3/uL (0.0-0.4); Eosinophils Percent Auto 2.3 % (0-4); Hematocrit 38.7 % (37.0-47.0); Imm Gran Abs Auto 0.09 X10*3/uL (0.00-0.03); Imm Gran Pct Auto 1.3 % (0.0-0.4); Lymphocytes Absolute Auto 1.9 X10*3/uL (1.2-4.9); Lymphocytes Percent Auto 26.7 % (20-40); Mean Corpuscular HGB Conc 33.6 g/dl (31.0-35.0); Mean Corpuscular Hemoglobin 28.8 pg (27.0-33.0); Mean Corpuscular Volume 85.8 fL (80.0-98.0); Monocytes Absolute Auto 0.5 X10*3/uL (0.1-1.2); Monocytes Percent Auto 6.5 % (2-11); Neutrophils Absolute Auto 4.3 x10*3/uL (2.0-8.3); Neutrophils Percent Auto 62.3 % (45-73); Platelet Count 215 X10*3/uL (160-400); Red Blood Count 4.51 X10*6/uL (4.20-5.50); Red Cell Distribution Width 15.2 % (11.0-16.0); White Blood Count 6.9 X10*3/uL (4.8-10.8)
[2024-10-01 01:25] LABS: Alanine Aminotransferase 18 U/L (0-31); Albumin Level 4.1 g/dL (3.5-5.0); Alkaline Phosphatase 75 U/L (39-117); Anion Gap 11 (12-20); Aspartate Amino Transferase 19 U/L (5-31); Bilirubin Total 0.2 mg/dL (0.0-1.0); Blood Urea Nitrogen 19 mg/dL (9-16); Carbon Dioxide 24 mmol/L (22-29); Chloride 109 mmol/L (96-108); Creatinine Clr Calc Pharmacy 137.6; Estimated Glomerular Filt Rate > 60; Glucose Random 91 mg/dL (60-115); Potassium 3.9 mmol/L (3.3-5.1); Sodium 140 mmol/L (135-145); Total Protein 6.8 g/dL (6.5-8.0)
[2024-10-01 01:29] LABS: Troponin-I High Sensitivity < 2.7 ng/L (<3.5-17.0)
[2024-10-01 01:42] LABS: Influenza A PCR NEGATIVE (Negative); Influenza B PCR NEGATIVE (Negative); Resp Syncy Virus RNA Qual PCR NEGATIVE (Negative); SARS COV2 PCR INHOUSE NEGATIVE (Negative)
--- NOTE | 2024-10-01 03:01 | PC.NURSE ---
pt ambulatory with steady gait from wr to ed15. family at bedside. nad. call keenan within reach.
[2024-10-01 05:25] VITALS: BP 107/64; PULSE 61; RESP 16; TEMP 36.9; O2SAT 99
--- NOTE | 2024-10-01 05:25 | PC.NURSE ---
pt resting comfortably in stretcher, sleeping upon entering room, pt arousable to name and vitals obtained. states still has a SHINE, neuros intact. awaiting eval by ed provider. family at bedside. call keenan within reach.
--- NOTE | 2024-10-01 06:20 | ED.GENADULT ---
HPI - General Adult General Chief complaint: General Medical Stated complaint: dizzy , HBP, chest pain Time Seen by Provider: 10/01/24 06:13 Source: patient Mode of arrival: ambulatory Limitations: no limitations History of Present Illness ED Provider: Dr. Jody De HPI narrative: Patient comes to the emergency room complaining of feeling unwell. Patient states that she was having some chest pain, lasted for a few sec, then started having palpitations, midsternal pressure without pain, numbness tingling of both hands. And then went away. Patient states that she is known to have panic attacks. At this time, patient is asymptomatic Related Data Previous Rx's ?Medication ?Instructions ?Recorded cefuroxime axetil 250 mg tablet 250 mg PO BID #14 tabs 11/21/21 phenazopyridine 200 mg tablet 200 mg PO TID PRN pain 6 doses #14 11/21/21 (Pyridium) tabs meclizine 25 mg tablet 25 mg PO TID PRN dizziness #14 tabs 06/01/23 hyoscyamine sulfate 0.125 mg tablet 0.125 mg PO QID PRN dyspepsia #10 02/14/24 tabs lorazepam 1 mg tablet (Ativan) 1 mg PO BEDTIME PRN anxiety/sleep 03/16/24 #10 tabs jjdzvzs-zptvlipzytrsb-vkddckdz 250 1 tab PO Q6H PRN pain (scale score 05/02/24 mg-250 mg-65 mg tablet (Excedrin 4-6) #7 tabs Migraine) diphenhydramine HCl 50 mg tablet 50 mg PO Q8H PRN headache #20 tabs 05/02/24 (Benadryl Allergy) metoclopramide HCl 10 mg tablet 10 mg PO Q6H PRN headache #10 tabs 05/02/24 (Reglan) docusate sodium 100 mg capsule 100 mg PO BID PRN constipation #14 05/28/24 (Colace) caps nitroglycerin 0.4 % (w/w) rectal 1 inch [place] BID #30 grams 05/28/24 ointment polyethylene glycol 3350 17 17 g PO DAILY #119 grams 05/28/24 gram/dose oral powder (Miralax) Allergies Allergy/AdvReac Type Severity Reaction Status Date / Time No Known Allergies Allergy Verified 10/01/24 00:23 Review of Systems Review of Systems: Constitutional : No Weight loss, No Fever, No Chills, No Night Sweats, No Fatigue, No Malaise ENT/Mouth : No Hearing loss, No Ear Pain, No Nasal Congestion, No Sinus Pain, No Hoarseness, No sore throat, No Rhinorrhea, No Swallowing Difficulty Eyes: No Eye Pain, No Swelling, No Redness, No Foreign Body, No Discharge, No Vision Changes Cardiovascular : Chest pressure without Chest Pain, No SOB, No Dyspnea on Exertion, No Orthopnea, No Edema, intermittent Palpitations Respiratory : No Cough, No Sputum, No Wheezing, No Smoke Exposure, No Dyspnea Gastrointestinal : No Nausea, No Vomiting, No Diarrhea, No Constipation, No abdominal Pain, No Hematochezia, No Melena Genitourinary : no irregular bleeding, No Dysuria, No Urinary Frequency, No Hematuria, No Urinary Incontinence, No Urgency, No Flank Pain, No Urinary Flow Changes, No Hesitancy Musculoskeletal : No joint pain, No Myalgias, No Joint Swelling Skin : No Skin Lesions, No rash Neuro : No Weakness, No Numbness, bilateral hand Paresthesias, No Loss of Consciousness, No Dizziness, No Headache Psych : Panic attack earlier today, No Depression, No SI/HI/AH/VH, No Social Issues, Heme/Lymph: No Bruising, No Bleeding,No Lymphadenopathy Endocrine : No Polyuria, No Polydipsia, No Temperature Intolerance [facility] Past Medical History Medical History (Updated 10/01/24 @ 06:48 by Jody De MD) Migraine Anxiety Social History Social History Alcohol intake: never Smoked in Last 30 Days: No Use of substances other than those prescribed or required for medical reasons: No Advance Directives: No Do you have a plan to hurt others: No Plan Physical Exam ED Vital Signs: Vital Signs - 24 hr 10/01/24 00:17 10/01/24 05:25 Temperature 99.1 F 98.4 F Pulse Rate 65 61 Respiratory Rate 16 16 Blood Pressure 149/90 H 107/64 Pulse Oximetry 97 99 Oxygen Delivery Method Room Air Room Air BMI result Body Mass Index 37.8 Const Other: Appearance: Alert. Oriented X3. No acute distress. Eyes: Pupils equal, round and reactive to light. ENT: Pharynx normal. Neck: Normal inspection. Neck supple. No lymph nodes noted. No crepitus CVS: Normal heart rate and rhythm. Pulses normal. Normal S1 and S2 Respiratory: No respiratory distress. Breath sounds normal. No Wheezing. No rales Abdomen: Soft and nontender. No rigidity. No distention. Skin: Skin warm and dry. Normal skin color. Normal skin turgor. Extremities: No lower extremity edema. No Lacerations. No Rash Neuro: Oriented X 3. No motor deficit. No sensory deficit. Moving all extremities. No slurred speech. CN 2 through 12 grossly intact Psych: calm, cooperative, normal affect Medical Decision Making Medical Decision Making [facility] Narrative: My interpretation of EKG: Normal sinus rhythm, heart rate 64, no ST segment depression or elevation, nonspecific T-wave inversion in lead 3, QTC 433 I discussed the labs with the patient No significant abnormalities in patient's hematology or chemistry, troponin negative At this time, patient is asymptomatic. Patient's numbness tingling of bilateral hands does not follow any specific neurological pattern. The constellation of patient's symptoms most consistent with a panic attack. TIA is not suspected I discussed with the patient that if she continues having intermittent symptoms like this, she may benefit from a referral to a Holter monitor evaluation through her primary care physician. Patient agrees with plan. Patient's blood pressure 114/67, heart rate in the 70s on physical exam prior to discharge patient asymptomatic Differential Diagnosis Differential Diagnoses: The differential diagnosis associated with the presentation includes (Anxiety, panic attack, ACS, TIA) Lab Data [facility] Lab Attestation statement: I reviewed the patient's lab results. 10/01/24 00:55 10/01/24 00:55 Labs: Lab Results 10/01/24 Range/Units 00:55 WBC 6.9 (4.8-10.8) X10*3/uL RBC 4.51 (4.20-5.50) X10*6/uL Hgb 13.0 (12.0-16.0) g/dl Hct 38.7 (37.0-47.0) % MCV 85.8 (80.0-98.0) fL MCH 28.8 (27.0-33.0) pg MCHC 33.6 (31.0-35.0) g/dl RDW 15.2 (11.0-16.0) % Plt Count 215 (160-400) X10*3/uL MPV 11.0 (9.4-12.3) fL Immature Gran % (Auto) 1.3 H (0.0-0.4) % Neut % (Auto) 62.3 (45-73) % Lymph % (Auto) 26.7 (20-40) % Sharp % (Auto) 6.5 (2-11) % Eos % (Auto) 2.3 (0-4) % Baso % (Auto) 0.9 (0-2) % Lymph # (Auto) 1.9 (1.2-4.9) X10*3/uL Sharp # (Auto) 0.5 (0.1-1.2) X10*3/uL Eos # (Auto) 0.2 (0.0-0.4) X10*3/uL Baso # (Auto) 0.1 (0.0-0.2) X10*3/uL Abs Immat Gran (auto) 0.09 H (0.00-0.03) X10*3/uL Absolute Neuts (auto) 4.3 (2.0-8.3) x10*3/uL Absolute Nucleated RBC 0.000 (0.0-0.012) X10*3/uL Nucleated RBC % (auto) 0.0 (0.0-0.2) /100WBC Sodium 140 (135-145) mmol/L Potassium 3.9 (3.3-5.1) mmol/L Chloride 109 H (96-108) mmol/L Carbon Dioxide 24 (22-29) mmol/L Anion Gap 11 L (12-20) BUN 19 H (9-16) mg/dL Creatinine 0.63 (0.5-1.4) mg/dL Estim Creat Clear Calc 137.6 Estimated GFR > 60 Random Glucose 91 (60-115) mg/dL Calcium 9.0 (8.4-10.2) mg/dL Total Bilirubin 0.2 (0.0-1.0) mg/dL AST 19 (5-31) U/L ALT 18 (0-31) U/L Alkaline Phosphatase 75 (39-117) U/L Troponin I High Sens < 2.7 (<3.5-17.0) ng/L Total Protein 6.8 (6.5-8.0) g/dL Albumin 4.1 (3.5-5.0) g/dL Influenza Type A (PCR) NEGATIVE (Negative) Influenza Type B (PCR) NEGATIVE (Negative) RSV RNA Qual (PCR) NEGATIVE (Negative) SARS-CoV-2 RNA (RT-PCR) NEGATIVE (Negative) Discharge Plan Discharge Clinical Impression: Atypical chest pain Patient Disposition: Home, Self-Care Instructions: Chest Pain (ED) Additional Instructions: Please follow-up with your primary care physician tomorrow. If you have any worsening or new symptoms, please return to the emergency room or call 911 Prescriptions: No Action phenazopyridine [Pyridium] 200 mg tablet 200 mg PO TID PRN (Reason: pain) Qty: 14 0RF cefuroxime axetil 250 mg tablet 250 mg PO BID Qty: 14 0RF meclizine 25 mg tablet 25 mg PO TID PRN (Reason: dizziness) Qty: 14 0RF hyoscyamine sulfate 0.125 mg tablet 0.125 mg PO QID PRN (Reason: dyspepsia) Qty: 10 0RF Benadryl Allergy 50 mg tablet 50 mg PO Q8H PRN (Reason: headache) Qty: 20 0RF metoclopramide HCl [Reglan] 10 mg tablet 10 mg PO Q6H PRN (Reason: headache) Qty: 10 0RF Excedrin Migraine 250-250-65 mg tablet 1 tab PO Q6H PRN (Reason: pain (scale score 4-6)) Qty: 7 0RF lorazepam [Ativan] 1 mg tablet 1 mg PO BEDTIME PRN (Reason: anxiety/sleep) Qty: 10 0RF nitroglycerin 0.4 % (w/w) ointment 1 inch [place] BID Qty: 30 0RF docusate sodium [Colace] 100 mg capsule 100 mg PO BID PRN (Reason: constipation) Qty: 14 0RF polyethylene glycol 3350 [Miralax] 17 gram/dose powder 17 g PO DAILY Qty: 119 0RF Print Language: Honduran
[2024-10-01 07:03] VITALS: BP 107/64; PULSE 61; RESP 16; TEMP 36.9; O2SAT 99
== END 2024-10-01 07:04 | disposition home or self-care (01) ==
PROVIDERS: Emergency Provider Emergency Medicine
DX: R42 Dizziness and giddiness (principal); R07.89 Other chest pain; R00.2 Palpitations; I10 Essential (primary) hypertension; Z03.818 Encounter for observation for suspected exposure to other biological agents ruled out; Z79.899 Other long term (current) drug therapy
CPT/HCPCS: 0241U; 80053; 84484; 85025; 93005; 99283; 99284

== ENCOUNTER → 2024-10-01 00:58 | Outpatient (BNV) | payer OTHER, SELFPAY | PROVIDERS: Emergency Provider Emergency Medicine; Visit Provider Internal Medicine Cardiovascular Disease | DX: R42 Dizziness and giddiness (principal) | CPT/HCPCS: 93010 ==

== ENCOUNTER 2025-01-25 08:26 | Emergency (ER) | payer OTHER, SELFPAY ==
--- NOTE | ~2025-01-25 | CT_ITS ---
EXAMINATION: CT ABDOMEN AND PELVIS WITH CONTRAST CLINICAL INFORMATION: Right lower quadrant abdominal pain. COMPARISON: February 14, 2024. TECHNIQUE: Multidetector volumetric images were obtained from the superior aspect of the liver through the pubic symphysis following administration 85 mL of Omnipaque 350 intravenous contrast. Sagittal and coronal reformatted images were obtained on the technologist's workstation. Oral contrast: No This CT examination was performed using dose optimization techniques as appropriate, variously including the following: *Automated exposure control *Adjustment of mA and/or kV according to patient size (this includes techniques or standardized protocols for targeted exams where dose is matched to indication/reason for exam; i.e. extremities or head) *Use of iterative reconstruction technique. DLP: 820 mGy centimeter. FINDINGS: LUNG BASES: No acute airspace disease. LIVER, GALLBLADDER, AND BILIARY TREE: Liver measures 15 cm. No focal lesion. Main portal veins, hepatic veins and intrahepatic portion of the IVC are patent. 3 mm hypodensity in the periphery of the right hepatic lobe too small to be fully characterized. No pericholecystic fluid collection or gallbladder wall thickening. Gallbladder is nondistended. No intrahepatic or extrahepatic biliary ductal dilatation. PANCREAS: No focal lesion. No peripancreatic fluid collection. No main pancreatic ductal dilatation. SPLEEN: 8 cm. No focal lesion. ADRENAL GLANDS: No nodular lesions. KIDNEYS AND URETERS: No hydronephrosis. No gross nephrolithiasis. No gross renal mass. Normal enhancement pattern of the renal parenchyma. BLADDER: Fluid-filled. GASTROINTESTINAL TRACT: Gas and fluid-filled mildly prominent small bowel loops mostly the jejunal loops. No gross intestinal wall thickening. Terminal ileum is normal. Appendix is normal. Abundant stool, large intestine. No intestinal obstruction pattern. No fluid collections, peritoneal cavity. No pneumoperitoneum. No pneumatosis intestinalis. No gross ascites. ABDOMINAL WALL: Small fat-containing umbilical hernia. LYMPH NODES: No lymphadenopathy, mesenteric or retroperitoneal. VASCULAR: No aneurysm or dissection, abdominal aorta. No gross plaque. PELVIC VISCERA: Heterogeneous low density soft tissue fullness involving the cervix. OSSEOUS STRUCTURES: No acute fracture or listhesis in the axial skeleton. No gross lytic or blastic lesions. Bony pelvis and coxofemoral joints are intact. CT/CT abdomen pelvis w IV con IMPRESSION: Consider mild enteritis in the correct clinical settings. Small fat-containing umbilical hernia. Heterogeneous low density soft tissue fullness, cervix. Recommend direct inspection. Fleischner guidelines were followed. Electronically signed by: Cornel Woodruff MD 01/25/2025 10:45 AM EDT
[2025-01-25 08:28] VITALS: BP 120/60; PULSE 57; RESP 16; TEMP 36.6; O2SAT 97; BMI 35.3
--- OUTSIDE RECORDS SUMMARY | 2025-01-25 09:01 | XMS_ITS | Clinical Summary ---
Author Organization [facility] ity Address [address] [place] [address] Care Team Providers Care Java [id number] Lead Name Role Phone Unavailable Primary Care Provider Unavailabl e Social History Tobacco Use Types Packs/Day Years Used Date Smoking Tobacco: Never Assessed Comments Unknown Sex and Gender Information Value Date Recorded Sex Assigned at Not on file Legal Sex Female 2:12 PM EST Gender Identity Not on file Sexual Orientation Not on file Plan of Treatment Health Maintenance Due Date Last Done Comments Breast Cancer Screening 1984 DTaP,Tdap,and Td Vaccines (1 - Tdap) 10/07/2003 Hepatitis B Vaccines (1 of 3 - 19+ 3-dose series) 10/07/2003 Cervical Cancer Screening: P ap Smear 2005 HIV Screening 05/15/2022 Hepatitis C Screening 05/15/2022 Social Influencers of Health Screening 05/15/2022 COVID-19 Vaccine (1 - 2023-2 5 season) 2024 Depression Screening 06/16/2024 Influenza Vaccine (#1) 2025 HIB Vaccines Aged Out No longer eligi ble based on patient's age to complete this topic HPV Vaccines Aged Out No longer eligi ble based on patient's age to complete this topic Hepatitis A Vaccines Aged Out No long er eligible based on patient's age to complete this topic IPV Vaccines Aged Out No longer eligi ble based on patient's age to complete this topic MMR Vaccines Aged Out No longer eligi ble based on patient's age to complete this topic Meningococcal ACWY Vaccine Aged Out N o longer eligible based on patient's age to complete this topic Meningococcal B Vaccine Aged Out No l onger eligible based on patient's age to complete this topic Pneumococcal Vaccine: Pediat rics (0 to 5 Years) and At-Risk Patients (6 to 49 Years) Aged Out No longer eligible b ased on patient's age to complete this topic RSV Immunization Patients Un stefan 20 months Aged Out No longer eligible b ased on patient's age to complete this topic Varicella Vaccines Aged Out No longer eligible based on patient's age to complete this topic
[2025-01-25 09:13] LABS: MANUAL DIFF FLAG NO
[2025-01-25 09:14] LABS: Hematocrit 40.3 % (37.0-47.0); Hemoglobin 13.5 g/dl (12.0-16.0); Imm Gran Abs Auto 0.03 X10*3/uL (0.00-0.03); Imm Gran Pct Auto 0.6 % (0.0-0.4); Lymphocytes Absolute Auto 1.3 X10*3/uL (1.2-4.9); Mean Corpuscular HGB Conc 33.5 g/dl (31.0-35.0); Mean Corpuscular Hemoglobin 29.0 pg (27.0-33.0); Mean Corpuscular Volume 86.5 fL (80.0-98.0); NRBC Abs Auto 0.000 X10*3/uL (0.0-0.012); NRBC Pct Auto 0.0 /100WBC (0.0-0.2); Platelet Count 224 X10*3/uL (160-400); Red Blood Count 4.66 X10*6/uL (4.20-5.50); White Blood Count 5.4 X10*3/uL (4.8-10.8)
[2025-01-25 09:15] LABS: Appearance Urine Clear; Glucose Urine UA Negative (Negative); PH 5.5 (5.0-9.0); Specific Gravity - Urine 1.025 (1.005-1.025)
[2025-01-25 09:34] LABS: Alanine Aminotransferase 17 U/L (0-31); Albumin Level 4.4 g/dL (3.5-5.0); Alkaline Phosphatase 71 U/L (39-117); Anion Gap 11 (12-20); Aspartate Amino Transferase 24 U/L (5-31); Blood Urea Nitrogen 17 mg/dL (9-16); Calcium 9.0 mg/dL (8.4-10.2); Carbon Dioxide 24 mmol/L (22-29); Chloride 110 mmol/L (96-108); Creatinine Clr Calc Pharmacy 118.3; Estimated Glomerular Filt Rate > 60; Potassium 4.0 mmol/L (3.3-5.1); Sodium 141 mmol/L (135-145); Total Protein 6.9 g/dL (6.5-8.0)
--- NOTE | 2025-01-25 09:39 | ED_ITS ---
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 She has never had a work up for this before. She has no PCP. She notes she came today as the last 3 days it is much worse and she feels weak like she could pass out. She is dizzy with movements. She has not taken any medications at home. of note EMR shows she has migraines, atypical chest pain, anxiety and had a normal CT scan back in 2023 for abdominal pain MD elicited complaint: abdominal pain Pertinent past history: none Onset (ago): month(s) Pain Consistency: intermittent Location: RUQ and R flank Severity: moderate Quality: aching and fullness Radiation: none Migration to: no migration Exacerbating factors: movement Relieving factors: nothing Context: other Associated symptoms: nausea Related Data Previous Rx's ?Medication ?Instructions ?Recorded cefuroxime axetil 250 mg tablet 250 mg PO BID #14 tabs 11/21/21 phenazopyridine 200 mg tablet 200 mg PO TID PRN pain 6 doses #14 11/21/21 (Pyridium) tabs meclizine 25 mg tablet 25 mg PO TID PRN dizziness # 14 tabs 06/01/23 hyoscyamine sulfate 0.125 mg tablet 0.125 mg PO QID MT N dyspepsia #10 02/14/24 tabs lorazepam 1 mg tablet (Ativan) 1 mg PO BEDTIME PRN anx iety/sleep 03/16/24 #10 tabs pfyumpj-gtoaitlcgeavu-xrxqyprv 250 1 tab PO Q6H PRN pa in (scale score 05/02/24 mg-250 mg-65 mg tablet (Excedrin 4-6) #7 tabs Migraine) diphenhydramine HCl 50 mg tablet 50 mg PO Q8H PRN head ache #20 tabs 05/02/24 (Benadryl Allergy) metoclopramide HCl 10 mg tablet 10 mg PO Q6H PRN heada roni #10 tabs 05/02/24 (Reglan) docusate sodium 100 mg capsule 100 mg PO BID PRN const ipation #14 05/28/24 (Colace) caps nitroglycerin 0.4 % (w/w) rectal 1 inch MT BID #30 gra ms 05/28/24 ointment polyethylene glycol 3350 17 17 g PO DAILY #119 grams 1 07/29/23 gram/dose oral powder (Miralax) cyclobenzaprine 10 mg tablet 10 mg PO TID PRN muscle s pasm #20 01/25/25 tabs ondansetron 4 mg disintegrating 4 mg PO Q8H PRN nausea and 01/25/25 tablet vomiting #20 tabs Allergies Allergy/AdvReac Type Severity Reaction Status Date / Time No Known Allergies Allergy Verified 01/25/25 08:29 Review of Systems Review of Systems Constitutional : No Weight loss, No Fever, No Chills ENT/Mouth : No sore throat, No Rhinorrhea Eyes: No Swelling, No Redness Cardiovascular : No Chest Pain, No SOB, NoEdema Respiratory : No Cough, No Sputum, No Wheezing Gastrointestinal : Positive Nausea,no Vomiting, no Diarrhea, positive abdominal Pain, No Hematochezia, No Melena Genitourinary : No Dysuria, No Urinary Frequency, No Hematuria, No Urgency Musculoskeletal : No joint pain, No Myalgias, No Joint Swelling Skin : No Skin Lesions, No rash Neuro : pos Weakness, No Numbness, pos Dizziness, No Headache All other systems reviewed and are negative. [facility] Past Medical History Attestation statement: The following information was validated with the patient. Source: old records reviewed Medical History Migraine Anxiety Social History Social History Alcohol intake: never Advance Directives: No Advance Directives Information Provided: Yes Do you have a plan to hurt others: No Plan Physical Exam ED Vital Signs: Vital Signs - 24 hr 01/25/25 08:28 01/25/25 10:35 Temperature 97.9 F 98.3 F Pulse Rate 57 59 Respiratory Rate 16 14 Blood Pressure 120/60 126/71 Pulse Oximetry 97 100 Oxygen Delivery Method Room Air Room Air BMI result Body Mass Index 35.3 Appearance: Alert. Oriented X3. No acute distress. Eyes: Pupils equal, round and reactive to light. ENT: Pharynx normal. Neck: Normal inspection. Neck supple. CVS: Normal heart rate and rhythm. Pulses normal. Respiratory: No respiratory distress. Breath sounds normal. Abdomen: Soft and moderate RLQ ttp no rebound or guarding Skin: Skin warm and dry. Normal skin color. Normal skin turgor. Extremities: No lower extremity edema. No calf ttp Neuro: Oriented X 3. No motor deficit. No sensory deficit. CN2-12 intact Medical Decision Making Medical Decision Making [facility] Narrative: 39 yo female with PMH of anxiety, migraines here with c/o R sided abdominal pain with nausea now feels very weak and dizzy she has no GIB symptoms, she has no fevers, she has no symptoms or heavy bleeding at this time will obtain basic labs, hydrate and check CT scan for appendicitis, constipation, colitis, renal colic, mass. IVF and IV toradol ordered. 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 01/25/25 09:08 01/25/25 09:08 Labs: Lab Results 01/25/25 Range/Units 09:08 WBC 5.4 (4.8-10.8) X10*3/uL RBC 4.66 (4.20-5.50) X10*6/uL Hgb 13.5 (12.0-16.0) g/dl Hct 40.3 (37.0-47.0) % MCV 86.5 (80.0-98.0) fL MCH 29.0 (27.0-33.0) pg MCHC 33.5 (31.0-35.0) g/dl RDW 15.0 (11.0-16.0) % Plt Count 224 (160-400) X10*3/uL MPV 10.9 (9.4-12.3) fL Immature Gran % (Auto) 0.6 H (0.0-0.4) % Neut % (Auto) 64.6 (45-73) % Lymph % (Auto) 24.4 (20-40) % [place]et % (Auto) 8.0 (2-11) % Eos % (Auto) 1.7 (0-4) % Baso % (Auto) 0.7 (0-2) % Lymph # (Auto) 1.3 (1.2-4.9) X10*3/uL [place]et # (Auto) 0.4 (0.1-1.2) X10*3/uL Eos # (Auto) 0.1 (0.0-0.4) X10*3/uL Baso # (Auto) 0.0 (0.0-0.2) X10*3/uL Abs Immat Gran (auto) 0.03 (0.00-0.03) X10*3/uL Absolute Neuts (auto) 3.5 (2.0-8.3) x10*3/uL Absolute Nucleated RBC 0.000 (0.0-0.012) X10*3/uL Nucleated RBC % (auto) 0.0 (0.0-0.2) /100WBC Sodium 141 (135-145) mmol/L Potassium 4.0 (3.3-5.1) mmol/L Chloride 110 H (96-108) mmol/L Carbon Dioxide 24 (22-29) mmol/L Anion Gap 11 L (12-20) BUN 17 H (9-16) mg/dL Creatinine 0.70 (0.5-1.4) mg/dL Estim Creat Clear Calc 118.3 Estimated GFR > 60 Random Glucose 97 (60-115) mg/dL Calcium 9.0 (8.4-10.2) mg/dL Total Bilirubin 0.5 (0.0-1.0) mg/dL AST 24 (5-31) U/L ALT 17 (0-31) U/L Alkaline Phosphatase 71 (39-117) U/L Total Protein 6.9 (6.5-8.0) g/dL Albumin 4.4 (3.5-5.0) g/dL Beta HCG, Quant < 2 mIU/mL Urine Color Yellow Urine Appearance Clear Urine pH 5.5 (5.0-9.0) Ur Specific [place] 1.025 (1.005-1.025) Urine Protein Negative (Neg-Trace) mg/dL Urine Glucose (UA) Negative (Negative) mg/dL Urine Ketones Negative (Negative) mg/dL Urine Blood Negative (Negative) Urine Nitrite Negative (Negative) Ur Leukocyte Esterase Negative (Negative) Independent Interpretation I performed an independent interpretation of an: CT Scan (enteritis non specific, cervical lesion) Radiology Impression Discussion of test interpretation with radiology: I have reviewed the radiologist's reading. External Record Review External record reviewed: Outpatient record Prescription Management I considered prescription management with: Pain Medication and Other Medications Administered Discontinued Medications Generic Name Dose Route Start Last Admin Trade Name Freq PRN Reason Stop Dose Admin Lactated Ringer's 1,000 mls @ 999 mls/hr 01/25/25 09:43 01/25/25 09:50 Lr IV 01/25/25 10:43 999 mls/hr .Q1H1M ONE Administration Iohexol 100 ml 01/25/25 10:25 01/25/25 10:25 Iohexol 350 Mg/Ml 100 Ml Infus..Btl IV 01/25/25 10:26 85 ml ONCE ONE Administration Ketorolac Tromethamine 15 mg 01/25/25 09:43 01/25/25 09:49 Ketorolac Tromethamine 15 Mg/Ml Vial IVPUSH 01/25/25 09:44 15 mg ONCE ONE Administration Ondansetron HCl 4 mg 01/25/25 09:43 01/25/25 09:50 Ondansetron Hcl 4 Mg/2 Ml Vial IVPUSH 01/25/25 09:44 4 mg ONCE ONE Administration Discharge Plan Discharge Clinical Impression: Abdominal pain Qualifiers: Abdominal location: generalized Qualified Code(s): R10.84 - Generalized abdominal pain Nausea & vomiting Qualifiers: Vomiting type: unspecified Qualified Code(s): R11.2 - Nausea with vomiting, unspecified Patient Disposition: Home, Self-Care Instructions: Acute Nausea and Vomiting (ED), Abdominal Pain (ED) Additional Instructions: labs and urine reassuring CT scan shows nonspecific enteritis - this should recover, also a cervical lesion that needs pap and OBGYN monitoring as soon as possible return for any worsening symptoms or concerns. CT/CT abdomen pelvis w IV con IMPRESSION: Consider mild enteritis in the correct clinical settings. Small fat-containing umbilical hernia. Heterogeneous low density soft tissue fullness, cervix. Recommend direct inspection. Fleischner guidelines were followed. Electronically signed by: Cornel Woodruff MD 01/25/2025 10:45 AM EDT RP OBGYN numbers to call [facility] [id number] [facility] [phone] [facility] [place] [phone] Prescriptions: New cyclobenzaprine 10 mg tablet 10 mg PO TID PRN (Reason: muscle spasm) Qty: 20 0RF ondansetron 4 mg tablet,disintegrating 4 mg PO Q8H PRN (Reason: nausea and vomiting) Qty: 20 0RF No Action phenazopyridine [Pyridium] 200 mg tablet 200 mg PO TID PRN (Reason: pain) Qty: 14 0RF cefuroxime axetil 250 mg tablet 250 mg PO BID Qty: 14 0RF meclizine 25 mg tablet 25 mg PO TID PRN (Reason: dizziness) Qty: 14 0RF hyoscyamine sulfate 0.125 mg tablet 0.125 mg PO QID PRN (Reason: dyspepsia) Qty: 10 0RF Benadryl Allergy 50 mg tablet 50 mg PO Q8H PRN (Reason: headache) Qty: 20 0RF metoclopramide HCl [Reglan] 10 mg tablet 10 mg PO Q6H PRN (Reason: headache) Qty: 10 0RF Excedrin Migraine 250-250-65 mg tablet 1 tab PO Q6H PRN (Reason: pain (scale score 4-6)) Qty: 7 0RF lorazepam [Ativan] 1 mg tablet 1 mg PO BEDTIME PRN (Reason: anxiety/sleep) Qty: 10 0RF nitroglycerin 0.4 % (w/w) ointment 1 inch MT BID Qty: 30 0RF docusate sodium [Colace] 100 mg capsule 100 mg PO BID PRN (Reason: constipation) Qty: 14 0RF polyethylene glycol 3350 [Miralax] 17 gram/dose powder 17 g PO DAILY Qty: 119 0RF Print Language: Nepali
[2025-01-25] MEDS: Lactated Ringers 1,000 ML 999 ML IV (09:50)
[2025-01-25] MEDS: iohexoL 350 MG/ML 100 ML INFUS..BTL IV (10:25)
[2025-01-25 10:35] VITALS: BP 126/71; PULSE 59; RESP 14; TEMP 36.8; O2SAT 100
[2025-01-25 11:20] VITALS: BP 126/71; PULSE 59; RESP 14; TEMP 36.8; O2SAT 100
== END 2025-01-25 11:42 | disposition home or self-care (01) ==
PROVIDERS: Emergency Provider Emergency Medicine
DX: R10.84 Generalized abdominal pain (principal); R11.2 Nausea with vomiting, unspecified
CPT/HCPCS: 36415; 74177; 80053; 81003; 84702; 85025; 96374; 96375; 99284; J1885; J2405; J7120; Q9967

== ENCOUNTER → 2025-01-25 09:43 | Outpatient (BNV) | payer OTHER, SELFPAY | PROVIDERS: Emergency Provider Emergency Medicine; Visit Provider Radiology Diagnostic Radiology | DX: R14.0 Abdominal distension (gaseous) (principal) | CPT/HCPCS: 74177 ==

== ENCOUNTER 2025-05-08 20:08 | Emergency (ER) | payer OTHER, SELFPAY ==
[2025-05-08] VITALS (8 sets, daily range): BP systolic 103–137; BP diastolic 59–74; PULSE 60–86; RESP 16–20; TEMP 36.8–37.1; O2SAT 99–100; BMI 34.8
--- NOTE | ~2025-05-08 | XR_ITS ---
CLINICAL HISTORY: Weakness 1 view chest x-ray Comparison: CR/SR - XR CHEST 2 VIEWS - 06/01/23 18:14 EST Findings: Heart size is top-normal. Pulmonary vasculature within normal limits. No consolidation, significant pleural effusion or pneumothorax. No acute fracture. IMPRESSION: 1. No acute findings. This document has been electronically signed by: Candy Mckeon MD on 05/08/2025 21:23:56
--- NOTE | ~2025-05-08 | CT_ITS ---
CLINICAL HISTORY: Left sided deficit, stroke alert CT head without contrast Comparison: CT/SR - CT HEAD WITHOUT IV CONTRAST - 05/02/24 12:[address]/SR - CT HEAD WITHOUT IV CONTRAST - 03/20/23 19:02 EDT Findings: No intra-axial mass, midline shift, hydrocephalus, or acute hemorrhage. No significant atrophy-like change or white matter disease. There is no sinus or mastoid fluid. The orbits are unremarkable. There is no acute fracture. IMPRESSION: 1. No acute intracranial findings. This document has been electronically signed by: Jamel Soto DO on 05/08/2025 20:44:28
--- NOTE | ~2025-05-08 | CT_ITS ---
CLINICAL HISTORY: Left sided deficit, stroke alert CT angiography head and neck with contrast. 3D Postprocessing. Comparison: CT/SR - CT HEAD WITHOUT IV CONTRAST - 05/02/2024 12:03 PM EST Findings: Aortic arch and cervical great vessels are patent with no dissection, hemodynamically significant stenoses, or occlusion. Left vertebral artery is dominant. Intracranial arteries are patent. No aneurysm or intracranial large vessel occlusion. origin of left posterior cerebral artery. No abnormal intracranial enhancement. The visualized thyroid gland is unremarkable. No cervical mass or fluid collection. Lung apices clear. No acute fracture. IMPRESSION: Patent head and neck CTA. This document has been electronically signed by: Candy Mckeon MD on 05/08/2025 21:29:31
--- NOTE | 2025-05-08 20:14 | ED.GENADULT ---
HPI - General Adult General Chief complaint: Neuro Symptoms/Deficit Stated complaint: General Medical Time Seen by Provider: 05/08/25 20:18 Source: patient, RN notes reviewed, old records reviewed and senior outside sales representative Mode of arrival: ambulatory Limitations: language barrier History of Present Illness ED Provider: Kane HPI narrative: 39-year-old female who denies any past medical history presents for evaluation of left-sided facial pain, numbness. She reports that she 1st developed posterior neck pain and posterior headache. In his somewhat unclear when this started pain She initially told triage in his started around 5:00 p.m. this evening, about 3-1/2 hours prior to my evaluation. However she reported to me that her symptoms started around 7:00 p.m., about an hour and a half prior to my evaluation She reports that her symptoms started rather suddenly with headache, neck pain, left facial numbness, left arm and leg heaviness She reported that her left leg seemed to be dragging She denies any difficulty with speech, denies any visual changes Related Data Previous Rx's ?Medication ?Instructions ?Recorded cefuroxime axetil 250 mg tablet 250 mg PO BID #14 tabs 11/21/21 phenazopyridine 200 mg tablet 200 mg PO TID PRN pain 6 doses #14 11/21/21 (Pyridium) tabs meclizine 25 mg tablet 25 mg PO TID PRN dizziness #14 tabs 06/01/23 hyoscyamine sulfate 0.125 mg tablet 0.125 mg PO QID PRN dyspepsia #10 02/14/24 tabs lorazepam 1 mg tablet (Ativan) 1 mg PO BEDTIME PRN anxiety/sleep 03/16/24 #10 tabs tflzbdz-nztbiercfyrfh-qcfebllz 250 1 tab PO Q6H PRN pain (scale score 05/02/24 mg-250 mg-65 mg tablet (Excedrin 4-6) #7 tabs Migraine) diphenhydramine HCl 50 mg tablet 50 mg PO Q8H PRN headache #20 tabs 05/02/24 (Benadryl Allergy) metoclopramide HCl 10 mg tablet 10 mg PO Q6H PRN headache #10 tabs 05/02/24 (Reglan) docusate sodium 100 mg capsule 100 mg PO BID PRN constipation #14 05/28/24 (Colace) caps nitroglycerin 0.4 % (w/w) rectal 1 inch PA BID #30 grams 05/28/24 ointment polyethylene glycol 3350 17 17 g PO DAILY #119 grams 05/28/24 gram/dose oral powder (Miralax) cyclobenzaprine 10 mg tablet 10 mg PO TID PRN muscle spasm #20 01/25/25 tabs ondansetron 4 mg disintegrating 4 mg PO Q8H PRN nausea and 01/25/25 tablet vomiting #20 tabs Allergies Allergy/AdvReac Type Severity Reaction Status Date / Time No Known Allergies Allergy Verified 05/08/25 20:17 Review of Systems Constitutional: Constitutional: Denies body ache(s), Denies chills, Denies fever(s), Denies frequent falls and Reports headache(s) Eyes: Eyes: Denies blind spots, Denies blurry vision, Denies exophthalmos, Denies irritation, Denies itchy eyes and Denies loss of vision ENT: Denies vertigo, Denies dizziness and Reports headache(s) Cardiovascular: Cardiovascular: Denies chest pain and Denies dyspnea on exertion Respiratory: Respiratory: Denies cough and Denies dyspnea on exertion Gastrointestinal: Gastrointestinal: Denies abdominal pain Musculoskeletal: Musculoskeletal: Denies back pain, Reports numbness and Reports tingling Integumentary/Breasts: Skin/Breast: Denies breast pain and Denies rash Neurologic: Denies Abnormal speech present, Denies burning sensations, Denies vertigo, Denies dizziness, Denies frequent falls, Reports headache(s), Denies loss of vision, Denies memory loss, Reports numbness, Denies Sensory deficit (Neuro), Reports tingling and Reports paresthesias Psychiatric: Psychiatric: Denies memory loss and Denies panic attacks Allergic/Immunologic: Allergic/Immunologic: Denies itchy eyes PMFSH Past Medical History Medical History Migraine Anxiety Social History Social History Alcohol intake: never Smoked in Last 30 Days: No Use of substances other than those prescribed or required for medical reasons: No Advance Directives: No Advance Directives Information Provided: No Patient : No Physical Exam ED Vital Signs: Vital Signs - 24 hr 05/08/25 20:10 05/08/25 20:48 05/08/25 21:06 Temperature 98.7 F 98.3 F Pulse Rate 71 73 60 Respiratory Rate 16 16 16 Blood Pressure 137/74 115/71 117/70 Pulse Oximetry 100 100 Oxygen Delivery Method Room Air Room Air 05/08/25 21:21 05/08/25 21:51 05/08/25 21:55 Temperature Pulse Rate 65 65 86 Respiratory Rate 16 16 20 Blood Pressure 115/67 114/59 L Pulse Oximetry 99 Oxygen Delivery Method Room Air 05/08/25 22:05 05/08/25 22:20 Temperature Pulse Rate 80 86 Respiratory Rate 18 20 Blood Pressure 108/66 103/63 Pulse Oximetry Oxygen Delivery Method BMI result Body Mass Index 34.8 Const General: healthy appearing, comfortable, no acute distress, alert and awake Nutritional Appearance: well nourished Orientation/consciousness: patient oriented x3 HENMT Head: Yes normocephalic and Yes atraumatic Eyes Eyelids: Yes eyelids normal Conjunctivae: conjunctivae normal Sclerae: sclerae normal Corneas: corneas normal Pupils: Equal, round and reactive pupils present EOM: EOMs intact bilaterally Neck Neck: Yes full ROM Resp Effort & Inspection: normal respiratory effort, able to speak in complete sentences and not labored Cardio Rate: regular rate Rhythm: regular rhythm GI Inspection: No distended Palpation (GI): Soft to palpation, not firm, nontender, no guarding and not rigid Skin General skin exam: elasticity normal Neuro General: patient oriented x3 Cranial nerves: Yes CN's II-XII intact bilaterally, Yes Equal, round and reactive pupils present and Yes Bilaterally intact EOM present Cognition (Neuro): normal cognition Speech: No Abnormal speech present Gait exam (Neuro): Normal gait present Motor exam (neuro): 5/5 motor strength present throughout, Pronator motor function not present, no tremor noted, no asterixis and Motor fasciculations not present Sensory Exam: No Sensory deficit (Neuro) Extrem Other: Moving all extremities well without any obvious deformities NIH Stroke Scale Internal: Initial- Upon Arrival Time: 20:16 Level of Consciousness: Alert Level of Consciousness Questions: Answers both questions correctly Level of Consciousness Commands: Performs both tasks correctly Best Gaze: Normal Visual: No visual loss Facial Palsy: Normal Motor Arm (Right): No drift Motor Arm (Left): No drift Motor Leg (Right): No drift Motor Leg (Left): No drift Limb Ataxia: Absent Sensory: Normal Best Language: No aphasia Dysarthia: Normal Extinction and Inattention: No abnormality Score: 0 Course Course Course Narrative: Rapid medical examination performed in triage by Pearl Michelle PA-C: Patient is a 39 year old assigned female at presenting to the emergency department with left sided facial drooping and feeling as though she is dragging her left side. Patient states that this started at approximately 5pm this evening. hay baler notified. Reevaluation(s) Reevaluation #1: Findings: Bones intact. No dislocations. No significant arthritic change. No erosions. No radiopaque foreign body. IMPRESSION: 1. No acute osseous injury. This document has been electronically signed by: Daksha Lynne MD on 05/08/2025 23:05:13 Time: 00:14 Medications Administered Discontinued Medications Generic Name Dose Route Start Last Admin Trade Name Freq PRN Reason Stop Dose Admin Diphenhydramine HCl 25 mg 05/08/25 21:09 05/08/25 21:24 Diphenhydramine Hcl 50 Mg/Ml Vial IVPUSH 05/08/25 21:10 25 mg ONCE ONE Administration Sodium Chloride 1,000 mls @ 999 mls/hr 05/08/25 21:15 05/08/25 22:50 Ns IV 05/08/25 22:15 Infused .Q1H1M LUIS Infusion Iohexol 100 ml 05/08/25 20:35 05/08/25 20:35 Iohexol 350 Mg/Ml 100 Ml Infus..Btl IV 05/08/25 20:36 70 ml ONCE ONE Administration Ketorolac Tromethamine 30 mg 05/08/25 21:09 05/08/25 21:24 Ketorolac Tromethamine 30 Mg/Ml Vial IVPUSH 05/08/25 21:10 30 mg ONCE ONE Administration Metoclopramide HCl 10 mg 05/08/25 21:09 05/08/25 21:25 Metoclopramide Hcl 10 Mg/2 Ml Vial IVPUSH 05/08/25 21:10 10 mg ONCE ONE Administration Medical Decision Making Medical Decision Making MDM Narrative: 39-year-old female presents for evaluation of multiple complaints including headache, neck pain, left-sided facial numbness, left arm heaviness and left leg heaviness. She reports that she feels as though she is dragging her left foot. However I watched her walk from triage to the stretcher in front of CAT scan and there was no evident foot drop or dragging of the extremity. Her strength is 5/5 and equal throughout both upper and lower extremities. The triage nurse documented that she noted left-sided facial droop but I did not appreciate this during my exam. At the time my evaluation the patient has an NIH stroke score of 0. I suspect the patient's symptoms are most likely related to a cervical radiculopathy or a complex migraine. The patient does take multiple medications for migraine treatment. She had a head CT on 05/02/2024 that did not show any acute pathology. The patient has no risk factors for CVA. TNK was considered but ultimately with an NIH stroke score of 0 ultimately felt that the risks were greater than the benefits. Differential Diagnosis Differential Diagnoses: The differential diagnosis associated with the presentation includes Complex migraine CVA Large vessel occlusion Cervical radiculopathy Admission/Observation Consideration of admission/observation: Escalation of care including admission/observation considered Lab Data MDM Lab Attestation statement: I reviewed the patient's lab results. No leukocytosis or significant anemia. Normal platelet count. No significant electrolyte abnormalities warranting intervention 05/08/25 20:42 05/08/25 20:42 Labs: Lab Results 05/08/25 05/08/25 05/08/25 Range/Units 20:21 20:22 20:42 WBC 7.4 (4.8-10.8) X10*3/uL RBC 4.15 L (4.20-5.50) X10*6/uL Hgb 12.0 (12.0-16.0) g/dl Hct 36.0 L (37.0-47.0) % MCV 86.7 (80.0-98.0) fL MCH 28.9 (27.0-33.0) pg MCHC 33.3 (31.0-35.0) g/dl RDW 14.6 (11.0-16.0) % Plt Count 179 (160-400) X10*3/uL MPV 10.8 (9.4-12.3) fL Immature Gran % (Auto) 0.4 (0.0-0.4) % Neut % (Auto) 71.6 (45-73) % Lymph % (Auto) 19.1 L (20-40) % [place] % (Auto) 7.2 (2-11) % Eos % (Auto) 1.2 (0-4) % Baso % (Auto) 0.5 (0-2) % Lymph # (Auto) 1.4 (1.2-4.9) X10*3/uL [place] # (Auto) 0.5 (0.1-1.2) X10*3/uL Eos # (Auto) 0.1 (0.0-0.4) X10*3/uL Baso # (Auto) 0.0 (0.0-0.2) X10*3/uL Abs Immat Gran (auto) 0.03 (0.00-0.03) X10*3/uL Absolute Neuts (auto) 5.3 (2.0-8.3) x10*3/uL Absolute Nucleated RBC 0.000 (0.0-0.012) X10*3/uL Nucleated RBC % (auto) 0.0 (0.0-0.2) /100WBC PT 13.0 (11.2-13.5) SEC Whole Blood PT 12.3 (11.1-13.5) sec INR 1.1 (0.9-1.1) Whole Blood INR 1.0 (0.9-1.1) APTT 28.2 (26.7-34.1) SEC Sodium 136 (135-145) mmol/L Potassium 3.8 (3.3-5.1) mmol/L Chloride 107 (96-108) mmol/L Carbon Dioxide 22 (22-29) mmol/L Anion Gap 11 L (12-20) BUN 21 H (9-16) mg/dL Creatinine 0.98 (0.5-1.4) mg/dL Estim Creat Clear Calc 83.8 Estimated GFR > 60 POC Glucose 94 (60-115) mg/dL Random Glucose 91 (60-115) mg/dL Calcium 8.8 (8.4-10.2) mg/dL Troponin I High Sens < 2.7 (<3.5-17.0) ng/L Triglycerides 80 (<150) mg/dL Cholesterol 173 (<200) mg/dL LDL Cholesterol, Calc 113 H (<100) mg/dL HDL Cholesterol 44 (>40) mg/dL Ethyl Alcohol < 10 mg/dL Radiology Impression Discussion of test interpretation with radiology: I have reviewed the radiologist's reading. Radiologist Impression: Findings: Aortic arch and cervical great vessels are patent with no dissection, hemodynamically significant stenoses, or occlusion. Left vertebral artery is dominant. Intracranial arteries are patent. No aneurysm or intracranial large vessel occlusion. origin of left posterior cerebral artery. No abnormal intracranial enhancement. The visualized thyroid gland is unremarkable. No cervical mass or fluid collection. Lung apices clear. No acute fracture. IMPRESSION: Patent head and neck CTA. This document has been electronically signed by: Candy Mckeon MD on 05/08/2025 21:29:31 Discharge Plan Discharge Clinical Impression: Headache Patient Disposition: Home, Self-Care Instructions: Acute Headache (ED) Additional Instructions: Your workup in the ER today was reassuring. This includes your CAT scan of your head and the blood vessels in your head and neck. Your labs are reassuring. Follow up with your primary doctor, return for new or worsening symptoms pain Your symptoms were most consistent with either a pinched nerve in your neck or a complex migraine Prescriptions: No Action phenazopyridine [Pyridium] 200 mg tablet 200 mg PO TID PRN (Reason: pain) Qty: 14 0RF cefuroxime axetil 250 mg tablet 250 mg PO BID Qty: 14 0RF meclizine 25 mg tablet 25 mg PO TID PRN (Reason: dizziness) Qty: 14 0RF hyoscyamine sulfate 0.125 mg tablet 0.125 mg PO QID PRN (Reason: dyspepsia) Qty: 10 0RF Benadryl Allergy 50 mg tablet 50 mg PO Q8H PRN (Reason: headache) Qty: 20 0RF metoclopramide HCl [Reglan] 10 mg tablet 10 mg PO Q6H PRN (Reason: headache) Qty: 10 0RF Excedrin Migraine 250-250-65 mg tablet 1 tab PO Q6H PRN (Reason: pain (scale score 4-6)) Qty: 7 0RF lorazepam [Ativan] 1 mg tablet 1 mg PO BEDTIME PRN (Reason: anxiety/sleep) Qty: 10 0RF nitroglycerin 0.4 % (w/w) ointment 1 inch PA BID Qty: 30 0RF docusate sodium [Colace] 100 mg capsule 100 mg PO BID PRN (Reason: constipation) Qty: 14 0RF polyethylene glycol 3350 [Miralax] 17 gram/dose powder 17 g PO DAILY Qty: 119 0RF cyclobenzaprine 10 mg tablet 10 mg PO TID PRN (Reason: muscle spasm) Qty: 20 0RF ondansetron 4 mg tablet,disintegrating 4 mg PO Q8H PRN (Reason: nausea and vomiting) Qty: 20 0RF Print Language: Bulgarian
--- NOTE | 2025-05-08 20:16 | ECG_ITS ---
Test Reason : KT Blood Pressure : */* mmHG Vent. Rate : 82 BPM Atrial Rate : 82 BPM P-R Int : 168 ms QRS Dur : 84 ms QT Int : 344 ms P-R-T Axes : 18 -2 -8 degrees QTcB Int : 401 ms Normal sinus rhythm Minimal voltage criteria for LVH, may be normal variant ( R in aVL ) Nonspecific T wave abnormality Abnormal ECG When compared with ECG of 01-Oct-2024 00:58, Non-specific change in ST segment in Anterior leads Nonspecific T wave abnormality now evident in Anterolateral leads Referred By: Pearl Michelle Electronically Signed By:
[2025-05-08 20:26] LABS: Prothrombin Time Whole Bld POC 12.3 sec (11.1-13.5); ~PT, ~INR - Anti Coag Clinic 1.0 (0.9-1.1)
[2025-05-08] MEDS: iohexoL 350 MG/ML 100 ML INFUS..BTL IV (20:35)
--- NOTE | 2025-05-08 20:45 | MHC.EDTECH ---
Addendum entered by Cassidy Mazariegos 05/08/25 20:46: inr and poc done @2022 Original Note: inr 1.0 pt 12.3 provider sekou germán poc 94
[2025-05-08 20:48] LABS: MANUAL DIFF FLAG NO
[2025-05-08 20:49] LABS: Hematocrit 36.0 % (37.0-47.0); Hemoglobin 12.0 g/dl (12.0-16.0); Imm Gran Abs Auto 0.03 X10*3/uL (0.00-0.03); Imm Gran Pct Auto 0.4 % (0.0-0.4); Lymphocytes Absolute Auto 1.4 X10*3/uL (1.2-4.9); Mean Corpuscular HGB Conc 33.3 g/dl (31.0-35.0); Mean Corpuscular Hemoglobin 28.9 pg (27.0-33.0); Mean Corpuscular Volume 86.7 fL (80.0-98.0); NRBC Abs Auto 0.000 X10*3/uL (0.0-0.012); NRBC Pct Auto 0.0 /100WBC (0.0-0.2); Platelet Count 179 X10*3/uL (160-400); Red Blood Count 4.15 X10*6/uL (4.20-5.50); White Blood Count 7.4 X10*3/uL (4.8-10.8)
[2025-05-08 20:58] LABS: INTERNATIONAL NORM RATIO 1.1 (0.9-1.1); Prothrombin Time 13.0 SEC (11.2-13.5)
[2025-05-08 21:00] LABS: Partial Thromboplastin Time 28.2 SEC (26.7-34.1)
[2025-05-08 21:06] LABS: Anion Gap 11 (12-20); Blood Urea Nitrogen 21 mg/dL (9-16); Calcium 8.8 mg/dL (8.4-10.2); Carbon Dioxide 22 mmol/L (22-29); Chloride 107 mmol/L (96-108); Cholesterol 173 mg/dL (<200); Creatinine Clr Calc Pharmacy 83.8; Estimated Glomerular Filt Rate > 60; HDL Cholesterol 44 mg/dL (>40); Potassium 3.8 mmol/L (3.3-5.1); Sodium 136 mmol/L (135-145); Triglycerides 80 mg/dL (<150)
[2025-05-08 21:08] LABS: Stroke Lab Use COMPLETE
[2025-05-08 21:10] LABS: Glucose, Whole Blood 94 mg/dL (60-115)
[2025-05-08 21:13] LABS: Troponin-I High Sensitivity < 2.7 ng/L (<3.5-17.0)
--- NOTE | 2025-05-08 22:23 | PC.NURSE ---
at this time pt was able to ambulate to the bathroom w/ a brisk steady gait
[2025-05-09 00:22] VITALS: BP 95/58; PULSE 76; RESP 20; TEMP 36.8; O2SAT 100
[2025-05-09 00:29] VITALS: BP 95/58; PULSE 76; RESP 20; TEMP 36.8; O2SAT 100
== END 2025-05-09 00:31 | disposition home or self-care (01) ==
PROVIDERS: Physician Assistant Medical; Emergency Provider Emergency Medicine
DX: R51.9 Headache, unspecified (principal); M54.2 Cervicalgia; R11.0 Nausea; R20.0 Anesthesia of skin; R94.31 Abnormal electrocardiogram [ECG] [EKG]; Z51.81 Encounter for therapeutic drug level monitoring; Z79.899 Other long term (current) drug therapy
CPT/HCPCS: 36415; 70450; 70496; 70498; 71045; 80048; 80061; 80307; 82947; 84484; 85025; 85610; 85730; 93005; 96361; 96374; 96375; 99285; J1200; J1885; J2765; Q9967

== ENCOUNTER → 2025-05-08 20:16 | Outpatient (BNV) | payer OTHER, SELFPAY | PROVIDERS: Visit Provider Family Medicine | DX: R20.2 Paresthesia of skin (principal); G81.94 Hemiplegia, unspecified affecting left nondominant side; R53.1 Weakness | CPT/HCPCS: 70450; 70496; 70498; 71045 ==